=== PATIENT | female | born 1975 | race Caucasian/White ===

== ENCOUNTER → 2016-04-08 | Outpatient (CLI) | payer OTHER ==
--- NOTE | 2016-04-08 12:45 | US ---
EXAMINATION TYPE: US abdomen complete DATE OF EXAM: 04/08/2016 11:31 AM COMPARISON: CT on PACS CLINICAL HISTORY: R10.11 RUQ Pain. GB removed 1996; On multiple meds for HTN, Thyroid, and Psyche EXAM MEASUREMENTS: Liver Length: 16.6 cm Gallbladder Wall: surgically removed CBD: 0.3 cm Spleen: 9.4 cm Right Kidney: 11.3 x 6.3 x 4.7 cm Left Kidney: 11.6 x 4.6 x 5.5 cm TECHNOLOGIST IMPRESSION: Pancreas: hyperechoic; partially gassed out due to overlying bowel gas Liver: fatty as is hyperechoic to right renal cortex Gallbladder: surgically removed CBD: wnl Spleen: wnl Right Kidney: No hydronephrosis or masses seen Left Kidney: No hydronephrosis or masses seen Upper IVC: wnl Abd Aorta: wnl IMPRESSION: 1. No suspicious acute changes 2. Some limitation due to bowel gas 3. Mild fatty infiltration of the liver.
== END | disposition home or self-care (01) ==
LOC: RADUSWWP 10:51
PROVIDERS: ATTEND Family Medicine
DX: K76.0 Fatty (change of) liver, not elsewhere classified (principal)
CPT/HCPCS: 76700

== ENCOUNTER → 2016-04-20 | Outpatient (CLI) | payer OTHER ==
--- NOTE | 2016-04-20 15:09 | US ---
EXAMINATION TYPE: US thyroid st tissue head/neck DATE OF EXAM: 04/20/2016 1:27 PM COMPARISON: NONE CLINICAL HISTORY: Thyroid Mass E04.1. GLAND SIZE: Right Lobe: 4.0 x 1.3 x 1.2 cm Overall Parenchyma: grossly heterogenous Left Lobe: 4.5 x 1.2 x 0.8 cm Overall Parenchyma: grossly heterogeneous Isthmus Thickness: 0.3 cm NODULES RIGHT: # of nodules measured on right: 0 LEFT: # of nodules measured on left: 0 ISTHMUS: # of nodules measured in the isthmus: 0 TECHNOLOGIST IMPRESSION: Bilateral neck scanned, no abnormal lymphadenopathy noted. Thyroid echotexture is somewhat heterogeneous. IMPRESSION: Thyroid atrophy is suggested, there may be underlying thyroiditis
== END | disposition home or self-care (01) ==
LOC: RADUSWWP 13:12
PROVIDERS: ATTEND Otolaryngology Facial Plastic Surgery
DX: E07.89 Other specified disorders of thyroid (principal)
CPT/HCPCS: 76536

== ENCOUNTER 2016-06-27 18:41 | Inpatient (IN) | payer MEDICAID, OTHER ==
--- NOTE | 2016-06-27 19:34 | ED ---
Psych HPI - General Chief Complaint: Psychiatric Symptoms Stated Complaint: Mental health Source: patient Mode of arrival: ambulatory - History of Present Illness Initial Comments: 41-year-old female with past medical history of depression presenting for evaluation of feeling "not like myself" for the past week with suicidal thoughts. She states her symptoms started a week ago and have included a recent cyst in socialization, decreased hygiene, increased sleep, decreased interest in food, and suicidal thoughts with a tentative plan of throwing herself down the stairs, no homicidal ideations, and increased anxiety. She states years ago she had an inpatient psych admission but hasn't had any recently. She takes Celexa and lithium and denies starting any new medications or ilicit drug use. There have been no new life stressors. - Related Data Home Medications Medication Instructions Recorded Confirmed Citalopram Hydrobromide [CeleXA] 60 mg PO QAM 02/01/15 06/28/16 Topiramate [Topamax] 100 mg PO BID 02/01/15 06/28/16 Dextroamphetamine/Amphetamine 30 mg PO DAILY 07/24/15 06/28/16 [Adderall] Atorvastatin Calcium [Lipitor] 10 mg PO HS 06/27/16 06/28/16 Ibuprofen [Motrin] 800 mg PO AC-BID PRN 06/27/16 06/28/16 Levothyroxine Sodium [Synthroid] 137 mcg PO DAILY 06/27/16 06/28/16 Lisinopril-Hctz 20-12.5 mg 1 tab PO DAILY 06/27/16 06/28/16 [Zestoretic 20-12.5] [place] Carbonate 600 mg PO HS 06/27/16 06/28/16 Omeprazole 20 mg PO AC-BID 06/27/16 06/28/16 traMADol HCL [Ultram] 50 mg PO BID PRN 06/27/16 06/28/16 Previous Rx's Medication Instructions Recorded Lurasidone [Latuda] 40 mg PO DAILY #30 tab 07/01/16 Nicotine 14Mg/24Hr Patch [Habitrol] 1 patch TRANSDERM DAILY #30 patch 07/01/16 busPIRone HCl [Buspar] 5 mg PO TID #90 tab 07/01/16 Allergies Allergy/AdvReac Type Severity Reaction Status Date / Time paroxetine HCl [From Paxil] AdvReac Nausea & Verified 06/28/16 10:25 Vomiting venlafaxine [From Effexor] AdvReac Nausea & Verified 06/28/16 10:25 Vomiting Review of Systems ROS Statement: Those systems with pertinent positive or pertinent negative responses have been documented in the HPI. ROS Other: All systems not noted in ROS Statement are negative. Constitutional: Reports: night sweats. Denies: fever, chills, weakness, weight change Eyes: Denies: eye pain, eye discharge, vision change ENT: Denies: ear pain, throat pain Respiratory: Denies: cough, dyspnea Cardiovascular: Denies: chest pain, palpitations, dyspnea on exertion, orthopnea , edema Endocrine: Denies: fatigue, polydipsia, polyuria Gastrointestinal: Denies: abdominal pain, nausea, vomiting Genitourinary: Denies: urgency, dysuria Musculoskeletal: Denies: back pain, arthralgia, myalgia Skin: Denies: rash, lesions Neurological: Denies: headache, weakness Psychiatric: Denies: anxiety, depression Hematological/Lymphatic: Denies: easy bleeding, easy bruising Past Medical History Past Medical History: Fibromyalgia, Hypertension, Thyroid Disorder Additional Past Medical History / Comment(s): ADHD, abd pain,constipation with diarrhea,intestinal infection Dec/Jan 2015,rt kidney dehydrated Feb 2015 History of Any Multi-Drug Resistant Organisms: None Reported Past Surgical History: Appendectomy, Section, Cholecystectomy Past Anesthesia/Blood Transfusion Reactions: No Reported Reaction Past Psychological History: ADD/ADHD, Depression Smoking Status: Current every day smoker Past Alcohol Use History: Occasional Additional Past Alcohol Use History / Comment(s): started smoking ppd Past Drug Use History: None Reported - Past Family History Mother Family Medical History: Cancer, Pulmonary Embolus Additional Family Medical History / Comment(s): leukemia Father Family Medical History: Diabetes Mellitus, Hypertension Additional Family Medical History / Comment(s): heart valve problems Brother(s) Additional Family Medical History / Comment(s): She has one brother with no major medical problems. Patient does not have any sisters. General Exam Limitations: no limitations General appearance: alert, in no apparent distress Head exam: Present: atraumatic, normocephalic, normal inspection Eye exam: Present: normal appearance, PERRL, EOMI. Absent: scleral icterus, conjunctival injection, periorbital swelling ENT exam: Present: normal exam, mucous membranes moist Neck exam: Present: normal inspection. Absent: tenderness, meningismus, lymphadenopathy Respiratory exam: Present: normal lung sounds bilaterally. Absent: respiratory distress, wheezes, rales, rhonchi, stridor Cardiovascular Exam: Present: regular rate, normal rhythm, normal heart sounds. Absent: systolic murmur, diastolic murmur, rubs, gallop, clicks GI/Abdominal exam: Present: soft, normal bowel sounds. Absent: distended, tenderness, guarding, rebound, rigid Rectal exam: Present: deferred Extremities exam: Present: normal inspection, full ROM, normal capillary refill. Absent: tenderness, pedal edema, joint swelling, calf tenderness Back exam: Present: normal inspection Neurological exam: Present: alert, oriented X3, CN II-XII intact Psychiatric exam: Present: normal affect, normal mood Skin exam: Present: warm, dry, intact, normal color. Absent: rash Course Vital Signs 06/27/16 06/28/16 18:43 05:28 Temperature 99.4 F 98.5 F Pulse Rate 69 76 Respiratory 20 18 Rate Blood Pressure 110/60 98/63 O2 Sat by Pulse 98 98 Oximetry Medical Decision Making - Medical Decision Making 41-year-old female presented for psych evaluation. She states for the last week she has had increased depression and suicidal ideations with the plan to throw herself down the stairs. Last inpatient psych admission was years ago. She takes Celexa and lithium. On physical exam the patient does appear mildly withdrawn and somnolent although she does provide information willingly. Physical exam is benign. Given that the patient has admitted intentions of hurting herself although made no attempts will perform medical clearance and have EPS evaluate for appropriate course of treatment. Labs revealed a mild leukocytosis and urine was positive for amphetamines. Patient was cleared for psych evaluation. EPS confirm that the patient did require inpatient psych and stated that we were without beds at this facility. The patient will be maintained in this ER until placement can be obtained whether it this facility or at an outside hospital. - Lab Data Result diagrams: 06/27/16 20:12 06/27/16 20:12 Lab Results 06/27/16 06/27/16 06/27/16 Range/Units 19:15 19:15 20:12 WBC (3.8-10.6) k/uL RBC (3.80-5.40) m/uL Hgb (11.4-16.0) gm/dL Hct (34.0-46.0) % MCV (80.0-100.0) fL MCH (25.0-35.0) pg MCHC (31.0-37.0) g/dL RDW (11.5-15.5) % Plt Count (150-450) k/uL Neutrophils % % Lymphocytes % % Monocytes % % Eosinophils % % Basophils % % Neutrophils # (1.3-7.7) k/uL Lymphocytes # (1.0-4.8) k/uL Monocytes # (0-1.0) k/uL Eosinophils # (0-0.7) k/uL Basophils # (0-0.2) k/uL Sodium 138 (137-145) mmol/L Potassium 3.5 (3.5-5.1) mmol/L Chloride 109 H (98-107) mmol/L Carbon Dioxide 18 L (22-30) mmol/L Anion Gap 11 mmol/L BUN 9 (7-17) mg/dL Creatinine 1.00 (0.52-1.04) mg/dL Est GFR (MDRD) Af Amer >60 (>60 ml/min/1.73 sqM) Est GFR (MDRD) Non-Af >60 (>60 ml/min/1.73 sqM) Glucose 100 H (74-99) mg/dL Calcium 9.9 (8.4-10.2) mg/dL Urine HCG, Qual Not Detected (Not Detectd) Urine Opiates Screen Not Detected (NotDetected) Ur Oxycodone Screen Not Detected (NotDetected) Urine Methadone Screen Not Detected (NotDetected) Ur Propoxyphene Screen Not Detected (NotDetected) Ur Barbiturates Screen Not Detected (NotDetected) U Tricyclic Antidepress Not Detected (NotDetected) Ur Phencyclidine Scrn Not Detected (NotDetected) Ur Amphetamines Screen Detected H (NotDetected) U Methamphetamines Scrn Not Detected (NotDetected) U Benzodiazepines Scrn Not Detected (NotDetected) Urine Cocaine Screen Not Detected (NotDetected) U Marijuana (THC) Screen Not Detected (NotDetected) 05/07/17 Range/Units 20:12 WBC 14.5 H (3.8-10.6) k/uL RBC 4.25 (3.80-5.40) m/uL Hgb 12.5 (11.4-16.0) gm/dL Hct 38.7 (34.0-46.0) % MCV 91.2 (80.0-100.0) fL MCH 29.4 (25.0-35.0) pg MCHC 32.2 (31.0-37.0) g/dL RDW 13.6 (11.5-15.5) % Plt Count 383 (150-450) k/uL Neutrophils % 58 % Lymphocytes % 31 % Monocytes % 5 % Eosinophils % 3 % Basophils % 1 % Neutrophils # 8.4 H (1.3-7.7) k/uL Lymphocytes # 4.5 (1.0-4.8) k/uL Monocytes # 0.7 (0-1.0) k/uL Eosinophils # 0.4 (0-0.7) k/uL Basophils # 0.1 (0-0.2) k/uL Sodium (137-145) mmol/L Potassium (3.5-5.1) mmol/L Chloride (98-107) mmol/L Carbon Dioxide (22-30) mmol/L Anion Gap mmol/L BUN (7-17) mg/dL Creatinine (0.52-1.04) mg/dL Est GFR (MDRD) Af Amer (>60 ml/min/1.73 sqM) Est GFR (MDRD) Non-Af (>60 ml/min/1.73 sqM) Glucose (74-99) mg/dL Calcium (8.4-10.2) mg/dL Urine HCG, Qual (Not Detectd) Urine Opiates Screen (NotDetected) Ur Oxycodone Screen (NotDetected) Urine Methadone Screen (NotDetected) Ur Propoxyphene Screen (NotDetected) Ur Barbiturates Screen (NotDetected) U Tricyclic Antidepress (NotDetected) Ur Phencyclidine Scrn (NotDetected) Ur Amphetamines Screen (NotDetected) U Methamphetamines Scrn (NotDetected) U Benzodiazepines Scrn (NotDetected) Urine Cocaine Screen (NotDetected) U Marijuana (THC) Screen (NotDetected) 06/27/16 19:58 Normal sinus rhythm with prolonged QT of 388/485. Ventricular rate 94, COBY 132 , QRS 76. Disposition Clinical Impression: Suicidal thoughts, Depression Disposition: HOME SELF-CARE Time of Disposition: 19:23
[2016-06-27 20:25] LABS: Basophils # (A) 0.1 k/uL (0-0.2); Basophils % (A) 1 %; CH 29.9; Eosinophils # (A) 0.4 k/uL (0-0.7); Eosinophils % (A) 3 %; HCT 38.7 % (34.0-46.0); HDW 2.61; HGB 12.5 gm/dL (11.4-16.0); Luc # (Auto) 0.39; Luc % (Auto) 3; Lymphocytes # (A) 4.5 k/uL (1.0-4.8); Lymphocytes % (A) 31 %; MCH 29.4 pg (25.0-35.0); MCHC 32.2 g/dL (31.0-37.0); MCV 91.2 fL (80.0-100.0); Mean Platelet Volume 6.5; Monocytes # (A) 0.7 k/uL (0-1.0); Monocytes % (A) 5 %; Neutrophils # (A) 8.4 k/uL (1.3-7.7); Neutrophils % (A) 58 %; RBC 4.25 m/uL (3.80-5.40); RDW 13.6 % (11.5-15.5); WBC 14.5 k/uL (3.8-10.6); WBC (Perox) 14.79
[2016-06-27 20:37] LABS: Anion Gap 11 mmol/L; Blood Urea Nitrogen 9 mg/dL (7-17); Calcium 9.9 mg/dL (8.4-10.2); Carbon Dioxide 18 mmol/L (22-30); Chloride 109 mmol/L (98-107); Glucose 100 mg/dL (74-99); Non-African American GFR(MDRD) >60 (>60 ml/min/1.73 sqM); Potassium 3.5 mmol/L (3.5-5.1); Sodium 138 mmol/L (137-145)
[2016-06-27] MEDS ORDERED: LORazepam 2 MG/ML SYRINGE IV STA (21:28)
[2016-06-27] MEDS ORDERED: LORazepam 2 MG/ML SYRINGE IM PRN (23:39)
[2016-06-27] MEDS ORDERED: TOPIRAMATE 100 MG TAB PO SCH (23:45)
[2016-06-27] MEDS ORDERED: PANTOPRAZOLE 40 MG TABLET PO SCH (23:45)
[2016-06-27] MEDS ORDERED: LISINOPRIL-HCTZ 20-12.5 MG 1 EACH TAB PO STA (23:55)
[2016-06-27] MEDS ORDERED: ATORVASTATIN 10 MG TAB PO STA (23:57)
[2016-06-28] MEDS ORDERED: LITHIUM CARBONATE 300 MG CAP PO STA
[2016-06-28] MEDS ORDERED: LEVOTHYROXINE 137 MCG TAB PO SCH (06:30)
[2016-06-28] MEDS ORDERED: LORazepam 1 MG TAB PO PRN (06:49)
[2016-06-28] MEDS ORDERED: ACETAMINOPHEN TAB 325 MG TAB PO PRN (06:49)
[2016-06-28] MEDS ORDERED: ZIPRASIDONE 20 MG VIAL IM PRN (06:49)
[2016-06-28] MEDS ORDERED: MAGNESIUM HYDROXIDE 2,400 MG/10 ML CUP PO PRN (06:49)
[2016-06-28] MEDS ORDERED: MAG HYDROX/AL HYDROX/SIMETH 30 ML CUP PO PRN (06:49)
[2016-06-28] MEDS ORDERED: traMADol 50 MG TAB PO PRN (06:56)
[2016-06-28] MEDS ORDERED: IBUPROFEN 800 MG TAB PO PRN (06:56)
[2016-06-28] MEDS ORDERED: LISINOPRIL-HCTZ 20-12.5 MG 1 EACH TAB PO ONE (09:00)
[2016-06-28] MEDS: LISINOPRIL-HCTZ 20-12.5 MG 1 EACH TAB PO SCH (09:26)
[2016-06-28] MEDS: NICOTINE 14MG/24HR PATCH TRANSDERM SCH (09:26)
[2016-06-28] MEDS: PANTOPRAZOLE 40 MG TABLET PO SCH ×2 (09:26→16:58)
[2016-06-28] MEDS: LEVOTHYROXINE 137 MCG TAB PO SCH (09:27)
[2016-06-28] MEDS: CITALOPRAM HYDROBROMIDE 20 MG TAB PO SCH (09:27)
[2016-06-28] MEDS: TOPIRAMATE 100 MG TAB PO SCH ×2 (09:27→21:41)
[2016-06-28 09:51] LABS: Lithium 0.8 mmol/L
[2016-06-28 10:20] VITALS: BMI 37.8
--- NOTE | 2016-06-28 14:58 | P.CONS ---
History of Present Illness - Reason for Consult Consult date: 06/28/16 Medical management - History of Present Illness This is a 41-year-old female. She does not have a primary care physician and follows with [facility] She also follows with Jeri Strange with [facility] and she obtains Adderall from a Dr. Christie. She has a past medical history for fibromyalgia, chronic leukocytosis, hypertension, hypothyroidism, ADHD, chronic diarrhea, tobacco use and dependence. Patient states that she has been feeling very depressed for one week and it just continued to worsen. She was having thoughts that she was going to hurt herself. She has not been sleeping well. She had 1 previous mental health unit visit many years ago. Someone brought her into [facility] emergency center for evaluation. White count is 14.5 and patient states that she has had chronically elevated white counts and does not know why. He is H is 1.310, cortisol level XIV. Urine drug screen detected and fat amines. [place] level is 0.8. HCG was not detected. Patient has been admitted to the mental health unit. She does complain of her abdomen being sore which is been chronic with chronic diarrhea. She denies any blood in her stools. Review of Systems All systems: negative Constitutional: Denies chills, Denies fever Eyes: denies blurred vision, denies pain Ears, nose, mouth and throat: Denies headache, Denies sore throat Cardiovascular: Denies chest pain, Denies shortness of breath Respiratory: Denies cough Gastrointestinal: Reports abdominal pain, Reports diarrhea, Denies melena, Denies nausea, Denies vomiting Genitourinary: Denies dysuria, Denies hematuria Musculoskeletal: Denies myalgias Integumentary: Denies pruritus, Denies rash Neurological: Denies numbness, Denies weakness Psychiatric: Reports depression, Reports hopelessness, Reports suicidal ideation , Denies anxiety Endocrine: Denies fatigue, Denies weight change Past Medical History Past Medical History: Fibromyalgia, Hypertension, Thyroid Disorder Additional Past Medical History / Comment(s): ADHD, abd pain,constipation with diarrhea,intestinal infection Dec/Jan 2015,rt kidney dehydrated Feb 2015 History of Any Multi-Drug Resistant Organisms: None Reported Past Surgical History: Appendectomy, Section, Cholecystectomy Past Anesthesia/Blood Transfusion Reactions: No Reported Reaction Past Psychological History: ADD/ADHD, Depression Smoking Status: Current every day smoker Past Alcohol Use History: None Reported Additional Past Alcohol Use History / Comment(s): started smoking 1992-02 ppd. She denies any medical marijuana, marijuana, street drug use. She is single. She has 4 children with no major medical problems. Patient is not employed. Past Drug Use History: None Reported - Past Family History Mother Family Medical History: Cancer, Pulmonary Embolus Additional Family Medical History / Comment(s): Mother at age 49 due to a pulmonary embolus. leukemia Father Family Medical History: Diabetes Mellitus, Hypertension Additional Family Medical History / Comment(s): Father is alive at age 71 with heart valve problems Brother(s) Additional Family Medical History / Comment(s): She has one brother with no major medical problems. Patient does not have any sisters. Medications and Allergies Home Medications Medication Instructions Recorded Confirmed Type Citalopram Hydrobromide [CeleXA] 60 mg PO QAM 02/01/15 06/28/16 History Topiramate [Topamax] 100 mg PO BID 02/01/15 06/28/16 History Dextroamphetamine/Amphetamine 30 mg PO DAILY 07/24/15 06/28/16 History [Adderall] Atorvastatin Calcium [Lipitor] 10 mg PO HS 06/27/16 06/28/16 History Ibuprofen [Motrin] 800 mg PO AC-BID PRN 06/27/16 06/28/16 History Levothyroxine Sodium [Synthroid] 137 mcg PO DAILY 06/27/16 06/28/16 History Lisinopril-Hctz 20-12.5 mg 1 tab PO DAILY 06/27/16 06/28/16 History [Zestoretic 20-12.5] [place] Carbonate 600 mg PO HS 06/27/16 06/28/16 History Omeprazole 20 mg PO AC-BID 06/27/16 06/28/16 History traMADol HCL [Ultram] 50 mg PO BID PRN 06/27/16 06/28/16 History Allergies Allergy/AdvReac Type Severity Reaction Status Date / Time paroxetine HCl [From Paxil] AdvReac Nausea & Verified 06/28/16 10:25 Vomiting venlafaxine [From Effexor] AdvReac Nausea & Verified 06/28/16 10:25 Vomiting Physical Exam Vitals: Vital Signs Temp Pulse Resp BP 05/08/17 09:30 99 18 116/71 06/28/16 07:13 98.4 F 90 16 111/58 Intake and Output 06/27/16 06/28/16 06/28/16 22:59 06:59 14:59 Other: Weight 96.79 kg Patient Weight 06/29/16 06:59 Weight 96.79 kg Gen: This is a 41-year-old female. She is cooperative and appears to be in no acute distress. HEENT: Head is atraumatic, normocephalic. Pupils equal, round. Sclerae is anicteric. NECK: Supple. No JVD. No lymphadenopathy. No thyromegaly. LUNGS: Clear to auscultation. No wheezes or rhonchi. No intercostal retractions. HEART: Regular rate and rhythm. No murmur. ABDOMEN: Soft. Bowel sounds are present. No masses. No tenderness. EXTREMITIES: No pedal edema. No calf tenderness. NEUROLOGICAL: Patient is awake, alert and oriented x3. Cranial nerves 2 through 12 are grossly intact. Results CBC & Chem 7: 06/27/16 20:12 06/27/16 20:12 Assessment and Plan Plan: 1. Depression with suicidal ideation. Patient admitted to the mental health unit. Continue current plan of care. 2. Insomnia due to depression. Continue as in #1. 3. Leukocytosis, chronic with normal cortisol level. 4. Tobacco use and dependence. Nicotine patch. 5. Hypertension. Continue Zestoretic. 6. Hypothyroidism. Continue Synthroid. 7. Hyperlipidemia. Continue Lipitor. 8. ADHD. Adderall on hold. 9. Gastroesophageal reflux disease. Continue omeprazole or equivalent. 10. Fibromyalgia, stable continue Tylenol or Motrin as needed. Ultram is available. Impression and plan of care have been directed as dictated by the signing physician. Rachel Smiley nurse practitioner acting as scribe for signing physician.
--- NOTE | 2016-06-28 17:09 | P.HP ---
Psychiatric H&P - . H&P Date: 06/28/16 History & Physical: IDENTIFYING DATA: A 41-year-old female. HPI: Patient reports not feeling well for a week. Was tired, depressed, isolating. Didn't want to do anything, see anybody or anyone see her, be at home by herself, for the past week. This has happended before but never this severe. Began to think of suicide, thoughts of throwing herself down the stairs, says she did not because of her children. PAST PSYCHIATRIC HISTORY: reports she has been treated for a long time, cannot give time frame. Has brief periods of feeling good. Has one attempt of OD on xanax. 3 hospitalizations PMH:hypothyroidism, HTN, high cholesteral, obesity ALLERGIES: Paxil, Effexor MEDICATIONS: per record CHEMICAL DEPENDENCY HISTORY: denies FAMILY PSYCHIATRIC HISTORY: denies FAMILY CHEMICAL DEPENDENCY HISTORY: brother with hx etoh use SOCIAL HISTORY: Lives by herself, her children are with others, friends. 2 youngest live with their father. She does not work, lives back child support payments. MENTAL STATUS EXAM: Patient lying in bed, difficult to coax out of bed but eventually came to office. Patient alert and oriented 3, poor eye contact, fair groomed in hospital attire. Speech low volume, slowed rate and decreased production. Coherent, logical and goal directed thought process. No HAKAN, no FOI. [No TB/TW/ TI] Denied auditory and visual hallucinations. Denied paranoid ideation, delusions or IOR. Memory [grossly intact] Cognition[average] Mood dysphoric, affect [constricted], congruent with mood. Denies suicidal ideation, denies homicidal ideation. Insight [none]; Judgment [grossly intact] STRENGTHS/WEAKNESSES: kind/lack of support INTELLECTUAL FUNCTIONING: average IMPRESSIONS: 41-year-old female with history of chronic recurrent depression, reporting anxiety fatigue and anhedonia lack of motivation. Vague suicidal ideation with plan to throw herself down her staircase but did not do it because she didn't want her children to suffer. Unclear why she is no longer at the jail parent. Possible characterologic issues, will need further information. Asking for medication for anxiety was the only spontaneous speech. No evidence of psychosis. No clear history of rebecca or hypomania. No suicidal ideation Bipolar II Borderline PD hx of opioid use disorder PLAN: Declined giving her a benzodiazepine which she had requested, and instead will give a try of BuSpar 5 mg 3 times a day. Will reduce the PRN dose of Ativan, and eventually D/C. Asked her to participate in the groups on the unit and other activities. She also agreed to let nursing staff know if she became suicidal. Continue inpatient psychiatric hospitalization Allergies Allergy/AdvReac Type Severity Reaction Status Date / Time paroxetine HCl From Paxil AdvReac Nausea & Verified 06/28/16 10:25 Vomiting venlafaxine From Effexor AdvReac Nausea & Verified 06/28/16 10:25 Vomiting Vital Signs Temp 98.4 F 06/28/16 07:13 Pulse 99 06/28/16 09:30 Resp 18 06/28/16 09:30 BP 116/71 06/28/16 09:30 Pulse Ox 98 06/28/16 05:28 Intake & Output 06/27/16 06/28/16 06/28/16 18:59 06:59 18:59 Weight 96.79 kg Laboratory Last Values WBC 14.5 k/uL (3.8-10.6) H 06/27/16 20:12 RBC 4.25 m/uL (3.80-5.40) 06/27/16 20:12 Hgb 12.5 gm/dL (11.4-16.0) 06/27/16 20:12 Hct 38.7 % (34.0-46.0) 06/27/16 20:12 MCV 91.2 fL (80.0-100.0) 06/27/16 20:12 MCH 29.4 pg (25.0-35.0) 06/27/16 20:12 MCHC 32.2 g/dL (31.0-37.0) 06/27/16 20:12 RDW 13.6 % (11.5-15.5) 06/27/16 20:12 Plt Count 383 k/uL (150-450) 06/27/16 20:12 Neutrophils % 58 % 06/27/16 20:12 Lymphocytes % 31 % 06/27/16 20:12 Monocytes % 5 % 06/27/16 20:12 Eosinophils % 3 % 06/27/16 20:12 Basophils % 1 % 06/27/16 20:12 Neutrophils # 8.4 k/uL (1.3-7.7) H 06/27/16 20:12 Lymphocytes # 4.5 k/uL (1.0-4.8) 06/27/16 20:12 Monocytes # 0.7 k/uL (0-1.0) 06/27/16 20:12 Eosinophils # 0.4 k/uL (0-0.7) 06/27/16 20:12 Basophils # 0.1 k/uL (0-0.2) 06/27/16 20:12 Sodium 138 mmol/L (137-145) 06/27/16 20:12 Potassium 3.5 mmol/L (3.5-5.1) 06/27/16 20:12 Chloride 109 mmol/L (98-107) H 06/27/16 20:12 Carbon Dioxide 18 mmol/L (22-30) L 06/27/16 20:12 Anion Gap 11 mmol/L 06/27/16 20:12 BUN 9 mg/dL (7-17) 06/27/16 20:12 Creatinine 1.00 mg/dL (0.52-1.04) 06/27/16 20:12 Est GFR (MDRD) Af Amer >60 (>60 ml/min/1.73 sqM) 06/27/16 20:12 Est GFR (MDRD) Non-Af >60 (>60 ml/min/1.73 sqM) 06/27/16 20:12 Glucose 100 mg/dL (74-99) H 06/27/16 20:12 Calcium 9.9 mg/dL (8.4-10.2) 06/27/16 20:12 TSH 1.310 mIU/L (0.465-4.680) 06/28/16 08:32 Cortisol 14 ug/dL 06/28/16 08:32 Urine HCG, Qual Not Detected (Not Detectd) 06/27/16 19:15 Urine Opiates Screen Not Detected (NotDetected) 06/27/16 19:15 Ur Oxycodone Screen Not Detected (NotDetected) 06/27/16 19:15 Urine Methadone Screen Not Detected (NotDetected) 06/27/16 19:15 Ur Propoxyphene Screen Not Detected (NotDetected) 06/27/16 19:15 Ur Barbiturates Screen Not Detected (NotDetected) 06/27/16 19:15 U Tricyclic Antidepress Not Detected (NotDetected) 06/27/16 19:15 Ur Phencyclidine Scrn Not Detected (NotDetected) 06/27/16 19:15 Ur Amphetamines Screen Detected (NotDetected) H 06/27/16 19:15 U Methamphetamines Scrn Not Detected (NotDetected) 06/27/16 19:15 U Benzodiazepines Scrn Not Detected (NotDetected) 06/27/16 19:15 [place] 0.8 mmol/L 06/28/16 08:32 Urine Cocaine Screen Not Detected (NotDetected) 06/27/16 19:15 U Marijuana (THC) Screen Not Detected (NotDetected) 06/27/16 19:15 06/28/16 16:30 06/28/16 16:52
[2016-06-28] MEDS: LITHIUM CARBONATE 300 MG CAP PO SCH (21:41)
[2016-06-28] MEDS: ATORVASTATIN 10 MG TAB PO SCH (21:41)
[2016-06-28] MEDS: LORazepam 1 MG TAB PO PRN (21:42)
[2016-06-28] MEDS: busPIRone HCl 5 MG TAB PO SCH (21:42)
[2016-06-29] MEDS: LEVOTHYROXINE 137 MCG TAB PO SCH (05:48)
--- NOTE | 2016-06-29 10:28 | P.PN ---
Progress Note - Text INTERVERAL HISTORY: She was seen in her room, lying in bed. States she is very tired, but slept last night. She was admitted for suicidal ideation, with a decrease in mood over the past week. Today she continues to report feeling depressed, not herself, but denies suicidal ideation. MENTAL STATUS EXAM:Patient alert and oriented 3, fair eye contact, fair groomed in hospital attire. Speech low volume, rate and production. Coherent, logical and goal directed thought process. No HAKAN, no FOI. No TB/TW/ TI Denied auditory and visual hallucinations. Denied paranoid ideation, delusions or IOR. Memory grossly intact Cognition average Mood dysphoric, affect and constricted, congruent with mood. Denies suicidal ideation, denies homicidal ideation. Insight Limited; Judgement grossly intact for treatment purposes PLAN: Reviewed her most recent progress notes from outpatient, and list of medicines. She has been tried on a multitude of different medications with marginal response. No side effects due to initiation of buspar. Encouraged her to get out of bed, participate in unit activities/groups.
[2016-06-29] MEDS: NICOTINE 14MG/24HR PATCH TRANSDERM SCH (10:31)
[2016-06-29] MEDS: busPIRone HCl 5 MG TAB PO SCH ×3 (10:31→21:18)
[2016-06-29] MEDS: PANTOPRAZOLE 40 MG TABLET PO SCH ×2 (10:31→16:58)
[2016-06-29] MEDS: CITALOPRAM HYDROBROMIDE 20 MG TAB PO SCH (10:32)
[2016-06-29] MEDS: TOPIRAMATE 100 MG TAB PO SCH ×2 (10:32→21:20)
[2016-06-29] MEDS: LISINOPRIL-HCTZ 20-12.5 MG 1 EACH TAB PO SCH (10:32)
[2016-06-29] MEDS: LORazepam 1 MG TAB PO PRN (13:23)
[2016-06-29] MEDS: ATORVASTATIN 10 MG TAB PO SCH (21:18)
[2016-06-29] MEDS: LITHIUM CARBONATE 300 MG CAP PO SCH (21:18)
[2016-06-30] MEDS: LORazepam 1 MG TAB PO PRN (00:26)
[2016-06-30] MEDS: LEVOTHYROXINE 137 MCG TAB PO SCH (06:20)
[2016-06-30] MEDS: PANTOPRAZOLE 40 MG TABLET PO SCH ×2 (08:30→18:19)
[2016-06-30] MEDS: LISINOPRIL-HCTZ 20-12.5 MG 1 EACH TAB PO SCH (09:02)
[2016-06-30] MEDS: busPIRone HCl 5 MG TAB PO SCH ×3 (09:03→20:59)
[2016-06-30] MEDS: CITALOPRAM HYDROBROMIDE 20 MG TAB PO SCH (09:03)
[2016-06-30] MEDS: NICOTINE 14MG/24HR PATCH TRANSDERM SCH (09:04)
[2016-06-30] MEDS: TOPIRAMATE 100 MG TAB PO SCH ×2 (09:04→20:59)
--- NOTE | 2016-06-30 12:41 | P.PN ---
Progress Note - Text INTERVERAL HISTORY:Patient admitted with suicidal ideation of throwing herself down staircase but instead came here. She spent the last 2 days sleeping, isloating. This morning [facility] Rep spoke with her and she is requesting discharge. Reviewed her case with her CABIN [employer]W. Patient had been on Latuda 120 mg and there have been no improvement in mood. In March lithium was slowly titrated up to 600 mg daily at bedtime, and patient was noted to feel less depressed and reported no suicidal ideation. At the beginning of May Mrs. Strange, began a tapering of Latuda with her last dose June 14. Patient agrees with this that her last dose was around June 14, and that she thinks this may also be part of the cause of her change in her mood and suicidal ideation. We discussed some other issues specifically the use of Adderall for ADHD, patient was not diagnosed with ADHD as a child or even as a teenager which is a requirement for DSM-V. 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 She states that she is willing to consider other choices for the stimulant. We discussed the fact that although it may not be the sole cause of anxiety it certainly is going to contribution. Patient denies suicidal ideation, says she would like to go home tomorrow because on Tuesday her children are coming, says that she has them every other weekend and its mother stated this weekend. MENTAL STATUS EXAM:Patient alert and oriented 3, good eye contact, fair groomed in hospital attire. Speech normal volume, rate and production. Coherent, logical and goal directed thought process. No HAKAN, no FOI. [No TB/TW/ TI] Denied auditory and visual hallucinations. Denied paranoid ideation, delusions or IOR. Memory [grossly intact] Cognition average Mood neutral, affect full range decreased intensity, congruent with mood. Denies suicidal ideation, denies homicidal ideation. Insight [Limited]; Judgment grossly intact PLAN: Will start Latuda 40m today, will continue buspar 5mg tid. Will plan on discharge tomorrow, with family meeting prior.
[2016-06-30] MEDS: LURASIDONE 40 MG TAB PO SCH (13:42)
[2016-06-30] MEDS: LITHIUM CARBONATE 300 MG CAP PO SCH (20:59)
[2016-06-30] MEDS: ATORVASTATIN 10 MG TAB PO SCH (20:59)
[2016-07-01 06:54] VITALS: BP 109/63; PULSE 91; RESP 16; TEMP 98.4
[2016-07-01] MEDS: LEVOTHYROXINE 137 MCG TAB PO SCH (07:20)
[2016-07-01] MEDS: PANTOPRAZOLE 40 MG TABLET PO SCH (09:10)
[2016-07-01] MEDS: busPIRone HCl 5 MG TAB PO SCH (09:11)
[2016-07-01] MEDS: LURASIDONE 40 MG TAB PO SCH (09:11)
[2016-07-01] MEDS: CITALOPRAM HYDROBROMIDE 20 MG TAB PO SCH (09:11)
[2016-07-01] MEDS: TOPIRAMATE 100 MG TAB PO SCH (09:11)
[2016-07-01] MEDS: LISINOPRIL-HCTZ 20-12.5 MG 1 EACH TAB PO SCH (09:11)
[2016-07-01] MEDS: NICOTINE 14MG/24HR PATCH TRANSDERM SCH (09:11)
--- NOTE | 2016-07-01 09:26 | P.DS ---
Providers Date of admission: 06/28/16 05:29 Expected date of discharge: 07/01/16 Attending physician: Francine Carias MD Consults: 06/28/16 06:49 Consult Physician Routine Consulting Provider: Elkin Barth Reason/Comments: H & P ad medical follow up Do you want consulting provider notified?: Yes Primary care physician: Stated None - Discharge Diagnosis(es) (1) Depression Current Visit: Yes Status: Chronic Priority: Medium (2) Suicidal thoughts Current Visit: Yes Status: Chronic Priority: Medium Hospital Course: Patient admitted with suicidal ideation of throwing herself down staircase but instead came here. She spent the first 2 days sleeping, isloating. Yesterday spoke to her [facility] [employer] PROFESSOR. Patient had been on Latuda 120 mg and there have been no improvement in mood. In March lithium was slowly titrated up to 600 mg daily at bedtime, and patient was noted to feel less depressed and reported no suicidal ideation. At the beginning of May Mrs. Strange, began a tapering of Latuda with her last dose June 14. Patient agrees with this that her last dose was around June 14, and that she thinks this may also be part of the cause of her change in her mood and suicidal ideation. We discussed some other issues specifically the use of Adderall for ADHD, patient was not diagnosed with ADHD as a child or even as a teenager which is a requirement for DSM-V. Was assessed by but can't remember his name. She states that she is willing to consider other choices for the stimulant. We discussed the fact that although it may not be the sole cause of anxiety it certainly is going to contribution. Patient denies suicidal ideation, says she would like to go home because on Tuesday her children are coming, says that she has them every other weekend and its mother stated this weekend. Started buspar 5mg tid, she tolerates. Restarted latuda 40mg MENTAL STATUS EXAM:Patient alert and oriented 3, good eye contact, fair groomed in street clothes. Speech normal volume, rate and production. Coherent, logical and goal directed thought process. No HAKAN, no FOI. [No TB/TW/ TI] Denied auditory and visual hallucinations. Denied paranoid ideation, delusions or IOR. Memory [grossly intact] Cognition average Mood neutral, affect full range decreased intensity, congruent with mood. Denies suicidal ideation, denies homicidal ideation. Insight [Limited]; Judgment grossly intact PLAN: Discharge today. Will have [facility] follow up. Will start Latuda 40m today, will Will plan on discharge tomorrow, with family meeting prior. Plan - Discharge Summary New Discharge Prescriptions: Lurasidone [Latuda] 40 mg PO DAILY #30 tab Nicotine 14Mg/24Hr Patch [Habitrol] 1 patch TRANSDERM DAILY #30 patch busPIRone HCl [Buspar] 5 mg PO TID #90 tab Discharge Medication List Citalopram Hydrobromide [CeleXA] 60 mg PO QAM 02/01/15 [History] Topiramate [Topamax] 100 mg PO BID 02/01/15 [History] Dextroamphetamine/Amphetamine [Adderall] 30 mg PO DAILY 07/24/15 [History] Atorvastatin Calcium [Lipitor] 10 mg PO HS 06/27/16 [History] Ibuprofen [Motrin] 800 mg PO AC-BID PRN 06/27/16 [History] Levothyroxine Sodium [Synthroid] 137 mcg PO DAILY 06/27/16 [History] Lisinopril-Hctz 20-12.5 mg [Zestoretic 20-12.5] 1 tab PO DAILY 06/27/16 [History ] [place] Carbonate 600 mg PO HS 06/27/16 [History] Omeprazole 20 mg PO AC-BID 06/27/16 [History] traMADol HCL [Ultram] 50 mg PO BID PRN 06/27/16 [History] Lurasidone [Latuda] 40 mg PO DAILY #30 tab 07/01/16 [Rx] Nicotine 14Mg/24Hr Patch [Habitrol] 1 patch TRANSDERM DAILY #30 patch 07/01/16 [ Rx] busPIRone HCl [Buspar] 5 mg PO TID #90 tab 07/01/16 [Rx] Follow up Appointment(s)/Referral(s): None,Stated [Primary Care Provider] - 1-2 days Patient Instructions/Handouts: Depression (DC), Suicide Prevention for Adults ( DC) Activity/Diet/Wound Care/Special Instructions: Activity and diet as tolerated. Avoid the use of street drugs and alcohol. Take all medications as prescribed. When you are in need of refills on your medication please contact your medical provider and/or outpatient psychiatrist to have this done. Please go to scheduled outpatient appointment for aftercare services. If symptoms return or become worse call the crisis line at [phone] and/or go to the nearest emergency room for an evaluation. Discharge Disposition: HOME SELF-CARE
== END 2016-07-01 10:06 | disposition home or self-care (01) | DRG 885 ==
LOC: EC 18:41 → 3MHU 06-28 05:29
PROVIDERS: ADMIT Psychiatry & Neurology Addiction Medicine; ATTEND Psychiatry & Neurology Addiction Medicine
DX: F33.9 Major depressive disorder, recurrent, unspecified (principal); R45.851 Suicidal ideations; I10 Essential (primary) hypertension; E03.9 Hypothyroidism, unspecified; F17.200 Nicotine dependence, unspecified, uncomplicated; F41.9 Anxiety disorder, unspecified; F90.9 Attention-deficit hyperactivity disorder, unspecified type; K52.9 Noninfective gastroenteritis and colitis, unspecified; M79.7 Fibromyalgia; E66.9 Obesity, unspecified; D72.829 Elevated white blood cell count, unspecified; G89.4 Chronic pain syndrome; R10.9 Unspecified abdominal pain; G47.00 Insomnia, unspecified; K21.9 Gastro-esophageal reflux disease without esophagitis; Z79.899 Other long term (current) drug therapy; Z88.8 Allergy status to other drugs, medicaments and biological substances; Z68.37 Body mass index [BMI] 37.0-37.9, adult; Z82.49 Family history of ischemic heart disease and other diseases of the circulatory system
CPT/HCPCS: 36415; 80048; 80178; 80306; 81025; 82075; 82533; 84443; 85025; 93005; 96372; 96374; 99285

== ENCOUNTER 2017-11-28 14:54 | Inpatient (IN) | payer MEDICAID, OTHER ==
--- NOTE | 2017-11-28 15:10 | ED ---
General Adult HPI - General Chief complaint: Psychiatric Symptoms Stated complaint: mental health Time Seen by Provider: 11/28/17 15:02 Source: patient, RN notes reviewed Mode of arrival: ambulatory Limitations: no limitations - History of Present Illness Initial comments: Patient is a pleasant 42-year-old female presenting to the emergency department with depression and stress. Symptoms been occurring over the past couple of months. Patient has lost interest in living. Patient does not have a plan to harm herself. Patient has been depressed. Patient is not eating well. Patient has nausea. Patient has occasional diarrhea. No homicidal thoughts. No hallucinations. No alcohol use. Occasional marijuana use. - Related Data Home Medications Medication Instructions Recorded Confirmed Citalopram Hydrobromide [CeleXA] 60 mg PO QAM 02/01/15 11/29/17 Topiramate [Topamax] 100 mg PO BID 02/01/15 11/29/17 Atorvastatin Calcium [Lipitor] 10 mg PO HS 06/27/16 11/29/17 Levothyroxine Sodium [Synthroid] 137 mcg PO DAILY 06/27/16 11/29/17 Omeprazole 20 mg PO AC-BID 06/27/16 11/29/17 ARIPiprazole [Abilify] 10 mg PO DAILY 11/28/17 11/29/17 Cholecalciferol [Vitamin D3] 5,000 unit PO DAILY 11/28/17 11/29/17 Dicyclomine [Bentyl] 10 mg PO QID 11/28/17 11/29/17 L.acidoph,Paracasei, B.lactis 1 cap PO BID 11/28/17 11/29/17 [Probiotic] busPIRone HCL 30 mg PO HS 11/28/17 11/29/17 cloNIDine HCL [Catapres] 0.2 mg OP HS 11/28/17 11/29/17 guaiFENesin [Mucinex] 600 mg PO Q12H PRN 11/28/17 11/29/17 Allergies Allergy/AdvReac Type Severity Reaction Status Date / Time lurasidone [From Latuda] AdvReac Swelling Verified 11/29/17 00:16 paroxetine HCl [From Paxil] AdvReac Nausea & Verified 11/29/17 00:16 Vomiting venlafaxine [From Effexor] AdvReac Nausea & Verified 10/09/18 00:16 Vomiting Review of Systems ROS Statement: Those systems with pertinent positive or pertinent negative responses have been documented in the HPI. ROS Other: All systems not noted in ROS Statement are negative. Constitutional: Denies: fever Eyes: Denies: eye pain ENT: Denies: ear pain Respiratory: Denies: cough Cardiovascular: Denies: chest pain Endocrine: Reports: fatigue Gastrointestinal: Reports: nausea, diarrhea Genitourinary: Denies: dysuria Musculoskeletal: Denies: back pain Skin: Denies: rash Neurological: Denies: weakness Past Medical History Past Medical History: Fibromyalgia, Hypertension, Thyroid Disorder Additional Past Medical History / Comment(s): ADHD, abd pain,constipation with diarrhea,intestinal infection Dec/Jan 2015,rt kidney dehydrated Feb 2015, hypokalemia, leukopenia History of Any Multi-Drug Resistant Organisms: None Reported Past Surgical History: Appendectomy, Section, Cholecystectomy Past Anesthesia/Blood Transfusion Reactions: No Reported Reaction Past Psychological History: ADD/ADHD, Depression Smoking Status: Current every day smoker Past Alcohol Use History: Occasional Past Drug Use History: Marijuana - Past Family History Mother Family Medical History: Cancer, Pulmonary Embolus Additional Family Medical History / Comment(s): leukemia Father Family Medical History: Diabetes Mellitus, Hypertension Additional Family Medical History / Comment(s): heart valve problems Brother(s) Additional Family Medical History / Comment(s): She has one brother with no major medical problems. Patient does not have any sisters. General Exam Limitations: no limitations General appearance: alert, in no apparent distress Head exam: Present: atraumatic Eye exam: Present: normal appearance, PERRL ENT exam: Present: normal oropharynx Neck exam: Present: normal inspection Respiratory exam: Present: normal lung sounds bilaterally Cardiovascular Exam: Present: regular rate, normal rhythm GI/Abdominal exam: Present: soft. Absent: distended, tenderness, pulsatile mass Extremities exam: Present: normal inspection Neurological exam: Present: alert Psychiatric exam: Present: depressed Skin exam: Present: normal color Course Vital Signs 11/28/17 11/28/17 14:56 20:44 Temperature 98.4 F 98.8 F Pulse Rate 93 83 Respiratory 18 16 Rate Blood Pressure 123/89 102/58 O2 Sat by Pulse 100 100 Oximetry Medical Decision Making - Lab Data Result diagrams: 11/29/17 10:06 11/29/17 10:06 Lab Results 11/28/17 Range/Units 15:11 Urine Opiates Screen Not Detected (NotDetected) Ur Oxycodone Screen Not Detected (NotDetected) Urine Methadone Screen Not Detected (NotDetected) Ur Propoxyphene Screen Not Detected (NotDetected) Ur Barbiturates Screen Not Detected (NotDetected) U Tricyclic Antidepress Not Detected (NotDetected) Ur Phencyclidine Scrn Not Detected (NotDetected) Ur Amphetamines Screen Detected H (NotDetected) U Methamphetamines Scrn Detected H (NotDetected) U Benzodiazepines Scrn Not Detected (NotDetected) Urine Cocaine Screen Not Detected (NotDetected) U Marijuana (THC) Screen Detected H (NotDetected) Disposition Clinical Impression: Depression Disposition: TRANSFER TO PSYCH HOSP/UNIT
[2017-11-28 15:44] LABS: Cocaine Screen,Urine Not Detected (NotDetected); Opiate Screen,Urine Not Detected (NotDetected); Phencyclidine Screen,Urine Not Detected (NotDetected); Urn Cannabinoid Scrn Detected (NotDetected)
[2017-11-28 15:45] LABS: Amphetamine Screen,Urine Detected (NotDetected); Barbiturate Screen,Urine Not Detected (NotDetected); Benzodiazepines Screen,Urine Not Detected (NotDetected); Methadone Screen, Urine Not Detected (NotDetected); Oxycodone Screen, Urine Not Detected (NotDetected); Tricyclic Antidepressant,Urine Not Detected (NotDetected)
[2017-11-28] MEDS ORDERED: LORazepam 1 MG TAB PO STA (16:46)
[2017-11-28] MEDS ORDERED: NICOTINE 21MG/24HR PATCH TRANSDERM STA (18:42)
[2017-11-28] MEDS ORDERED: ZIPRASIDONE 20 MG VIAL IM PRN (20:37)
[2017-11-28] MEDS: DICYCLOMINE 10 MG CAP PO SCH (21:43)
[2017-11-28] MEDS: PANTOPRAZOLE 40 MG TABLET PO SCH (21:43)
[2017-11-28] MEDS: busPIRone HCl 10 MG TAB PO SCH (21:43)
[2017-11-28] MEDS: TOPIRAMATE 100 MG TAB PO SCH (21:43)
[2017-11-28] MEDS: ATORVASTATIN 10 MG TAB PO SCH (21:51)
[2017-11-28] MEDS: guaiFENesin 600 MG TABLET.ER PO PRN (22:51)
[2017-11-29 00:56] VITALS: BMI 32.5
[2017-11-29] MEDS: clonazePAM 0.5 MG TAB PO PRN ×2 (01:26→15:10)
--- NOTE | 2017-11-29 05:50 | CONS ---
CONSULTATION DATE OF CONSULTATION: 11/28/2017. REASON FOR CONSULTATION: Medical management requested by Dr. Salazar. CONSULTATION: This is a 42-year-old patient of Dr. Sara Christie. Chronic stable medical conditions include fibromyalgia, hypothyroid, irritable bowel syndrome, lupus, GERD. Patient getting depressed, stressed out, anxious, some suicidal ideation, thoughts and decided to come in. The patient continues to smoke. Also got a cough and some wheezing. Also got some pain in the right hip and right away she asked me for some stronger pain medications. Patient just jumps from one topic to the other topic. Presented to the ER. REVIEW OF SYSTEMS: CONSTITUTIONAL: None. HEENT: None. RESPIRATORY: Wheezing, short of breath. CARDIOVASCULAR none. GASTROINTESTINAL: Heartburn. GENITOURINARY: None. MUSCULOSKELETAL: Some pain in the right hip. DERMATOLOGICAL: None. HEMATOLOGIC: None. LYMPHATIC: None. PSYCHIATRY: Anxious, depression. NEUROLOGICAL: None. PAST MEDICAL HISTORY: Fibromyalgia, hypertension, hypothyroid. ADHD, irritable bowel syndrome. PAST SURGICAL HISTORY: Appendectomy, , cholecystectomy. PSYCH HISTORY: Depression, ADHD. SOCIAL HISTORY: Smoking half a pack a day for several years. Urine drug screen is positive for amphetamines, methamphetamines, The patient smokes marijuana about 5 times a week. Denies alcohol. Lives with her son. FAMILY HISTORY: Pulmonary embolism, leukemia. HOME MEDICATIONS: 1. Bentyl 10 mg p.o. q.i.d. 2. Mucinex 600 mg p.o. q.12h p.r.n. 3. Catapres 0.2 mg p.o. q.h.s. 4. Buspirone 30 mg q.h.s. 5. Topamax 100 mg p.o. b.i.d. 6. Omeprazole 20 mg b.i.d. 7. Synthroid 137 mcg p.o. daily. 8. Probiotic 1 capsule p.o. daily. 9. Celexa 60 mg p.o. daily. 10.Vitamin D3 5000 units p.o. daily. 11.Lipitor 10 mg at bedtime. 12.Abilify 10 mg p.o. daily. ALLERGY: TO LATUDA, PAXIL, EFFEXOR. PHYSICAL EXAMINATION: VITAL SIGNS: Temperature 98.8, pulse 83, respirations 16, blood pressure 102/58, pulse 100 percent on room air. GENERAL APPEARANCE: Well built BMI 32.4 sitting up somewhat anxious-appearing. EYES: Pupils equal. Conjunctivae normal. HEENT: External appearance of nose and ears normal. Oral cavity normal. NECK: JVD not raised. Mass not palpable. RESPIRATORY: Effort increased. LUNGS decreased breath sounds. Some prolonged wheezing. CARDIOVASCULAR: 1st and 2nd sounds, no edema. ABDOMEN: Soft, nontender. Liver and spleen not palpable. LYMPHATICS: No lymph nodes palpable in the neck and axilla. PSYCHIATRY: Alert and oriented x3. Mood and affect anxious-appearing. NEUROLOGICAL: Pupils equal. Cranial nerves grossly intact. Power and sensation grossly intact. Gait dysfunction. The patient has been walking normally. INVESTIGATIONS: Urine drug screen positive for amphetamines, methamphetamine, marijuana. ASSESSMENT: 1. Chronic fibromyalgia, hypothyroidism, irritable bowel syndrome, Lupus, gastroesophageal reflux disease, obesity, BMI 32.4. 2. Chronic obstructive pulmonary disease in a current smoker. 3. Chronic nicotine dependence, patient is a cigarette smoker. 4. Recreational marijuana use. PLAN: Patient advised against smoking. Has got a nicotine patch. Will give nebulized bronchodilators. Home medications are resumed. Other psychiatry medications per Dr. Salazar. The patient should follow up with Dr. Sara Christie upon discharge. Thank you Dr. Salazar. MMJEANAL / IJN: [id number] /
[2017-11-29] MEDS: LEVOTHYROXINE 137 MCG TAB PO SCH (06:30)
[2017-11-29] MEDS: CITALOPRAM HYDROBROMIDE 20 MG TAB PO SCH (07:52)
[2017-11-29] MEDS: NICOTINE 21MG/24HR PATCH TRANSDERM SCH (07:52)
[2017-11-29] MEDS: PANTOPRAZOLE 40 MG TABLET PO SCH ×2 (07:52→16:38)
[2017-11-29] MEDS: TOPIRAMATE 100 MG TAB PO SCH ×2 (07:52→20:31)
[2017-11-29] MEDS: DICYCLOMINE 10 MG CAP PO SCH ×4 (07:53→20:32)
[2017-11-29] MEDS: IPRATROPIUM-ALBUTEROL 3 ML NEB INHALATION SCH ×3 (09:11→21:25)
[2017-11-29 11:07] LABS: Albumin 3.9 g/dL (3.5-5.0); Potassium 3.8 mmol/L (3.5-5.1); Total Bilirubin 0.4 mg/dL (0.2-1.3)
[2017-11-29 11:15] LABS: Anisocytosis Slight; Basophils # (A) 0.1 k/uL (0-0.2); Basophils % (A) 1 %; Eosinophils # (A) 0.3 k/uL (0-0.7); Eosinophils % (A) 3 %; HCT 36.7 % (34.0-46.0); HGB 11.5 gm/dL (11.4-16.0); Hypochromasia Moderate; Lymphocytes # (A) 3.5 k/uL (1.0-4.8); Lymphocytes % (A) 42 %; MCH 24.9 pg (25.0-35.0); MCHC 31.2 g/dL (31.0-37.0); MCV 79.7 fL (80.0-100.0); Mean Platelet Volume 6.9; Monocytes # (A) 0.3 k/uL (0-1.0); Monocytes % (A) 4 %; Neutrophils # (A) 4.2 k/uL (1.3-7.7); Neutrophils % (A) 49 %; Platelet Count 381 k/uL (150-450); RDW 16.2 % (11.5-15.5); WBC 8.4 k/uL (3.8-10.6)
[2017-11-29] MEDS: CHOLECALCIFEROL 1,000 UNIT TAB PO SCH (11:35)
--- NOTE | 2017-11-29 12:39 | P.HP ---
Psychiatric H&P - . H&P Date: 11/29/17 History & Physical: I feel depressed and don't ant to live anymore HPI: Patient reports not feeling well for a week. Was tired, depressed, isolating. Didn't want to do anything, see anybody or anyone see her, be at home by herself, for the past week. This has happended before but never this severe. Began to think of suicide, thoughts of throwing herself down the stairs, says she did not because of her children. PAST PSYCHIATRIC HISTORY: reports she has been treated for a long time, cannot give time frame. Has brief periods of feeling good. Has one attempt of OD on xanax. 3 hospitalizations PMH:hypothyroidism, HTN, high cholesteral, obesity ALLERGIES: Paxil, Effexor MEDICATIONS: per record CHEMICAL DEPENDENCY HISTORY: denies FAMILY PSYCHIATRIC HISTORY: denies FAMILY CHEMICAL DEPENDENCY HISTORY: brother with hx etoh use SOCIAL HISTORY: Lives by herself, her children are with others, friends. 2 youngest live with their father. She does not work, lives back child support payments. Allergies Allergy/AdvReac Type Severity Reaction Status Date / Time lurasidone [From Latuda] AdvReac Swelling Verified 11/29/17 00:16 paroxetine HCl [From Paxil] AdvReac Nausea & Verified 11/29/17 00:16 Vomiting venlafaxine [From Effexor] AdvReac Nausea & Verified 11/29/17 00:16 Vomiting Vital Signs Temp 98.2 F 11/29/17 02:23 Pulse 67 11/29/17 09:18 Resp 16 11/29/17 02:23 BP 137/73 11/29/17 02:23 Pulse Ox 100 11/28/17 20:44 Intake & Output 11/28/17 11/29/17 11/29/17 18:59 06:59 18:59 Weight 83.007 kg 83.4 kg Laboratory Last Values WBC 8.4 k/uL (3.8-10.6) 11/29/17 10:06 RBC 4.60 m/uL (3.80-5.40) 11/29/17 10:06 Hgb 11.5 gm/dL (11.4-16.0) 11/29/17 10:06 Hct 36.7 % (34.0-46.0) 11/29/17 10:06 MCV 79.7 fL (80.0-100.0) L 11/29/17 10:06 MCH 24.9 pg (25.0-35.0) L 11/29/17 10:06 MCHC 31.2 g/dL (31.0-37.0) 11/29/17 10:06 RDW 16.2 % (11.5-15.5) H 11/29/17 10:06 Plt Count 381 k/uL (150-450) 11/29/17 10:06 Neutrophils % 49 % 11/29/17 10:06 Lymphocytes % 42 % 11/29/17 10:06 Monocytes % 4 % 11/29/17 10:06 Eosinophils % 3 % 11/29/17 10:06 Basophils % 1 % 11/29/17 10:06 Neutrophils # 4.2 k/uL (1.3-7.7) 11/29/17 10:06 Lymphocytes # 3.5 k/uL (1.0-4.8) 11/29/17 10:06 Monocytes # 0.3 k/uL (0-1.0) 11/29/17 10:06 Eosinophils # 0.3 k/uL (0-0.7) 11/29/17 10:06 Basophils # 0.1 k/uL (0-0.2) 11/29/17 10:06 Hypochromasia Moderate 11/29/17 10:06 Anisocytosis Slight 11/29/17 10:06 Sodium 141 mmol/L (137-145) 11/29/17 10:06 Potassium 3.8 mmol/L (3.5-5.1) 11/29/17 10:06 Chloride 113 mmol/L (98-107) H 11/29/17 10:06 Carbon Dioxide 19 mmol/L (22-30) L 11/29/17 10:06 Anion Gap 9 mmol/L 11/29/17 10:06 BUN 14 mg/dL (7-17) 11/29/17 10:06 Creatinine 0.96 mg/dL (0.52-1.04) 11/29/17 10:06 Est GFR (CKD-EPI)AfAm 85 (>60 ml/min/1.73 sqM) 11/29/17 10:06 Est GFR (CKD-EPI)NonAf 74 (>60 ml/min/1.73 sqM) 11/29/17 10:06 Glucose 107 mg/dL (74-99) H 11/29/17 10:06 Calcium 10.0 mg/dL (8.4-10.2) 11/29/17 10:06 Total Bilirubin 0.4 mg/dL (0.2-1.3) 11/29/17 10:06 AST 17 U/L (14-36) 11/29/17 10:06 ALT 25 U/L (9-52) 11/29/17 10:06 Alkaline Phosphatase 43 U/L (38-126) 11/29/17 10:06 Total Protein 7.0 g/dL (6.3-8.2) 11/29/17 10:06 Albumin 3.9 g/dL (3.5-5.0) 11/29/17 10:06 Triglycerides 209 mg/dL (<150) H 11/29/17 10:06 Cholesterol 252 mg/dL (<200) H 11/29/17 10:06 LDL Cholesterol, Calc 177 mg/dL (0-99) H 11/29/17 10:06 HDL Cholesterol 33 mg/dL (40-60) L 11/29/17 10:06 TSH 0.609 mIU/L (0.465-4.680) 11/29/17 10:06 Urine Opiates Screen Not Detected (NotDetected) 11/28/17 15:11 Ur Oxycodone Screen Not Detected (NotDetected) 11/28/17 15:11 Urine Methadone Screen Not Detected (NotDetected) 11/28/17 15:11 Ur Propoxyphene Screen Not Detected (NotDetected) 11/28/17 15:11 Ur Barbiturates Screen Not Detected (NotDetected) 11/28/17 15:11 U Tricyclic Antidepress Not Detected (NotDetected) 11/28/17 15:11 Ur Phencyclidine Scrn Not Detected (NotDetected) 11/28/17 15:11 Ur Amphetamines Screen Detected (NotDetected) H 11/28/17 15:11 U Methamphetamines Scrn Detected (NotDetected) H 11/28/17 15:11 U Benzodiazepines Scrn Not Detected (NotDetected) 11/28/17 15:11 Urine Cocaine Screen Not Detected (NotDetected) 11/28/17 15:11 U Marijuana (THC) Screen Detected (NotDetected) H 11/28/17 15:11 11/29/17 12:21 11/29/17 12:32 Assessment and Plan Assessment: MENTAL STATUS EXAM: Patient lying in bed, difficult to coax out of bed but eventually came to office. Patient alert and oriented 3, poor eye contact, fair groomed in hospital attire. Speech low volume, slowed rate and decreased production. Coherent, logical and goal directed thought process. No HAKAN, no FOI. [No TB/TW/ TI] Denied auditory and visual hallucinations. Denied paranoid ideation, delusions or IOR. Memory [grossly intact] Cognition[average] Mood dysphoric, affect [constricted], congruent with mood. Denies suicidal ideation, denies homicidal ideation. Insight [none]; Judgment [grossly intact] STRENGTHS/WEAKNESSES: kind/lack of support INTELLECTUAL FUNCTIONING: average IMPRESSIONS: 41-year-old female with history of chronic recurrent depression, reporting anxiety fatigue and anhedonia lack of motivation. Vague suicidal ideation with plan to throw herself down her staircase but did not do it because she didn't want her children to suffer. Unclear why she is no longer at the residential parent. Possible characterologic issues, will need further information. Asking for medication for anxiety was the only spontaneous speech. No evidence of psychosis. No clear history of rebecca or hypomania. No suicidal ideation Bipolar II Borderline PD hx of opioid use disorder (1) Depression Current Visit: Yes Status: Chronic Priority: High Code(s): F32.9 - MAJOR DEPRESSIVE DISORDER, SINGLE EPISODE, UNSPECIFIED SNOMED Code(s): 96839429 (2) Suicidal thoughts Current Visit: No Status: Chronic Priority: Medium Code(s): R45.851 - SUICIDAL IDEATIONS SNOMED Code(s): 4324108 Plan: PLAN: BuSpar 10 mg 3 times a day. Will reduce the PRN dose of Ativan, and eventually D/C. Asked her to participate in the groups on the unit and other activities. She also agreed to let nursing staff know if she became suicidal. Continue inpatient psychiatric hospitalization Initial Plan of Care: [Planned to admit to mental health unit third floor at [facility] for formal voluntary admission. She'll be evaluated by medicine, psychiatry, social work, recreational therapist and integrated and a [facility]mil[facility] therapeutic environment patient will be obtained at a multispecialty came on a regular daily basis as to treatment and discharge planning.] Estimated Length of Stay: [5-7 days] Initial Discharge Plan: [home, [facility], referred to therapist Prognosis: [ fair] Justification for Inpatient Hospitalization - [anxiety, depression resulting in significant loss of functioning.] [Dangerous to self with need for controlled environment.] [Emotional or behavioral conditions and complications requiring 24 hour medical and nursing care.] [Need for special drug therapy, or other therapeutic program requiring continuous hospitalization.] [Failure of social or occupational functioning.] [Inability to meet basic life and health needs.] Check topamax level and T3, T4
[2017-11-29] MEDS: guaiFENesin 600 MG TABLET.ER PO PRN (13:20)
[2017-11-29] MEDS: ACETAMINOPHEN TAB 325 MG TAB PO PRN (13:20)
[2017-11-29] MEDS: cloNIDine HCL 0.1 MG TAB PO SCH ×2 (15:35→20:32)
[2017-11-29] MEDS: busPIRone HCl 10 MG TAB PO SCH (20:30)
[2017-11-29] MEDS: ATORVASTATIN 10 MG TAB PO SCH (20:31)
[2017-11-29] MEDS: HALOPERIDOL 0.5 MG TAB PO SCH (20:31)
[2017-11-29 20:54] LABS: Hemoglobin A1C 5.5 % (4.0-6.0)
[2017-11-30] MEDS: LEVOTHYROXINE 137 MCG TAB PO SCH (06:42)
[2017-11-30] MEDS: cloNIDine HCL 0.1 MG TAB PO SCH ×3 (08:31→20:19)
[2017-11-30] MEDS: NICOTINE 21MG/24HR PATCH TRANSDERM SCH (08:31)
[2017-11-30] MEDS: CITALOPRAM HYDROBROMIDE 20 MG TAB PO SCH (08:31)
[2017-11-30] MEDS: PANTOPRAZOLE 40 MG TABLET PO SCH ×2 (08:31→15:28)
[2017-11-30] MEDS: DICYCLOMINE 10 MG CAP PO SCH ×4 (08:32→20:19)
[2017-11-30] MEDS: TOPIRAMATE 100 MG TAB PO SCH ×2 (08:33→20:19)
[2017-11-30] MEDS: HALOPERIDOL 0.5 MG TAB PO SCH (08:33)
[2017-11-30] MEDS: guaiFENesin 600 MG TABLET.ER PO PRN ×2 (08:33→23:07)
[2017-11-30] MEDS: IPRATROPIUM-ALBUTEROL 3 ML NEB INHALATION SCH ×3 (09:52→19:31)
--- NOTE | 2017-11-30 11:23 | P.PN ---
Subjective Progress Note Date: 11/30/17 Principal diagnosis: bipolar I feel depressed and don't ant to live anymore HPI: Patient reports not feeling well for a week. Was tired, depressed, isolating. Didn't want to do anything, see anybody or anyone see her, be at home by herself, for the past week. This has happended before but never this severe. Began to think of suicide, thoughts of throwing herself down the stairs, says she did not because of her children. PAST PSYCHIATRIC HISTORY: reports she has been treated for a long time, cannot give time frame. Has brief periods of feeling good. Has one attempt of OD on xanax. 3 hospitalizations Objective - Vital Signs Vital signs: Vital Signs Temp 98.3 F 11/30/17 06:34 Pulse 91 11/30/17 08:51 Resp 16 11/30/17 08:51 BP 104/61 11/30/17 08:51 Pulse Ox 100 11/28/17 20:44 - Labs CBC & Chem 7: 11/29/17 10:06 11/29/17 10:06 Labs: Abnormal Lab Results - Last 24 Hours (Table) 11/29/17 Range/Units 10:06 MCV 79.7 L (80.0-100.0) fL MCH 24.9 L (25.0-35.0) pg RDW 16.2 H (11.5-15.5) % Assessment and Plan Assessment: MENTAL STATUS EXAM: Patient lying in bed, difficult to coax out of bed but eventually came to office. Patient alert and oriented 3, poor eye contact, fair groomed in hospital attire. Speech low volume, slowed rate and decreased production. Coherent, logical and goal directed thought process. No HAKAN, no FOI. [No TB/TW/ TI] Denied auditory and visual hallucinations. Denied paranoid ideation, delusions or IOR. Memory [grossly intact] Cognition[average] Mood dysphoric, affect [constricted], congruent with mood. Denies suicidal ideation, denies homicidal ideation. Insight [none]; Judgment [grossly intact] STRENGTHS/WEAKNESSES: kind/lack of support INTELLECTUAL FUNCTIONING: average IMPRESSIONS: 41-year-old female with history of chronic recurrent depression, reporting anxiety fatigue and anhedonia lack of motivation. Vague suicidal ideation with plan to throw herself down her staircase but did not do it because she didn't want her children to suffer. Unclear why she is no longer at the half-way parent. Possible characterologic issues, will need further information. Asking for medication for anxiety was the only spontaneous speech. No evidence of psychosis. No clear history of rebecca or hypomania. No suicidal ideation Bipolar II Borderline PD hx of opioid use disorder (1) Depression Current Visit: Yes Status: Chronic Priority: High Code(s): F32.9 - MAJOR DEPRESSIVE DISORDER, SINGLE EPISODE, UNSPECIFIED SNOMED Code(s): 93276642 (2) Suicidal thoughts Current Visit: No Status: Chronic Priority: Medium Code(s): R45.851 - SUICIDAL IDEATIONS SNOMED Code(s): 8575768 Plan: PLAN: BuSpar 10 mg 3 times a day. Will reduce the PRN dose of Ativan, and eventually D/C. Asked her to participate in the groups on the unit and other activities. She also agreed to let nursing staff know if she became suicidal. Continue inpatient psychiatric hospitalization Add Geodon 40 mg at bedtime Initial Plan of Care: [Planned to admit to mental health unit third floor at [facility] for formal voluntary admission. She'll be evaluated by medicine, psychiatry, social work, recreational therapist and integrated and a wardmilieu therapeutic environment patient will be obtained at a multispecialty came on a regular daily basis as to treatment and discharge planning.] Estimated Length of Stay: [5-7 days] Initial Discharge Plan: [home, [facility], referred to therapist Prognosis: [ fair] Justification for Inpatient Hospitalization - [anxiety, depression resulting in significant loss of functioning.] [Dangerous to self with need for controlled environment.] [Emotional or behavioral conditions and complications requiring 24 hour medical and nursing care.] [Need for special drug therapy, or other therapeutic program requiring continuous hospitalization.] [Failure of social or occupational functioning.] [Inability to meet basic life and health needs.] Check topamax level and T3, T4 are within normal Time with Patient: Less than 30
[2017-11-30] MEDS: CHOLECALCIFEROL 1,000 UNIT TAB PO SCH (11:39)
[2017-11-30] MEDS: ACETAMINOPHEN TAB 325 MG TAB PO PRN ×2 (11:39→16:43)
[2017-11-30] MEDS: ONDANSETRON ODT 4 MG TAB PO PRN (15:30)
[2017-11-30] MEDS: ATORVASTATIN 10 MG TAB PO SCH (20:18)
[2017-11-30] MEDS: busPIRone HCl 10 MG TAB PO SCH (20:19)
[2017-11-30] MEDS ORDERED: FLUCONAZOLE 150 MG TAB PO STA (20:30)
[2017-11-30] MEDS ORDERED: ZIPRASIDONE 40 MG CAP PO SCH (21:00)
[2017-11-30 21:19] LABS: Appearance,Urine Cloudy (Clear); Bilirubin,Urine Negative (Negative); Blood,Urine Large (Negative); Color,Urine Yellow; Glucose,Urine (UA) Negative (Negative); Ketones,Urine Negative (Negative); Leukocyte Esterase,Urine Negative (Negative); Mucus,Urine Moderate /hpf; Nitrite,Urine Negative (Negative); Protein,Urine 1+ (Negative); RBC,Urine >182 /hpf (0-5); Specific Gravity,Urine 1.032 (1.001-1.035); Squamous Epithelial Cell,Urine 20 /hpf (0-4); WBC,Urine 8 /hpf (0-5)
[2017-11-30] MEDS: MAG HYDROX/AL HYDROX/SIMETH 30 ML CUP PO PRN (23:07)
[2017-12-01] MEDS: clonazePAM 0.5 MG TAB PO PRN ×3 (00:24→23:45)
[2017-12-01] MEDS: LEVOTHYROXINE 137 MCG TAB PO SCH (06:30)
[2017-12-01] MEDS: NICOTINE 21MG/24HR PATCH TRANSDERM SCH (08:33)
[2017-12-01] MEDS: cloNIDine HCL 0.1 MG TAB PO SCH (08:34)
[2017-12-01] MEDS: CITALOPRAM HYDROBROMIDE 20 MG TAB PO SCH (08:34)
[2017-12-01] MEDS: PANTOPRAZOLE 40 MG TABLET PO SCH ×2 (08:34→17:33)
[2017-12-01] MEDS: TOPIRAMATE 100 MG TAB PO SCH ×2 (08:34→21:51)
[2017-12-01] MEDS: DICYCLOMINE 10 MG CAP PO SCH ×4 (08:34→21:51)
[2017-12-01] MEDS: IPRATROPIUM-ALBUTEROL 3 ML NEB INHALATION SCH ×3 (09:14→21:29)
--- NOTE | 2017-12-01 10:20 | P.PN ---
Subjective Progress Note Date: 12/01/17 Principal diagnosis: bipolar I feel depressed and don't ant to live anymore HPI: Patient reports not feeling well for a week. Was tired, depressed, isolating. Didn't want to do anything, see anybody or anyone see her, be at home by herself, for the past week. This has happended before but never this severe. Began to think of suicide, thoughts of throwing herself down the stairs, says she did not because of her children. PAST PSYCHIATRIC HISTORY: reports she has been treated for a long time, cannot give time frame. Has brief periods of feeling good. Has one attempt of OD on xanax. 3 hospitalizations Objective - Vital Signs Vital signs: Vital Signs Temp 98.6 F 11/30/17 08:51 Pulse 84 12/01/17 08:30 Resp 16 12/01/17 08:30 BP 94/55 12/01/17 08:30 Pulse Ox 100 11/30/17 08:51 - Labs CBC & Chem 7: 11/29/17 10:06 11/29/17 10:06 Labs: Abnormal Lab Results - Last 24 Hours (Table) 11/30/17 Range/Units Unknown Urine Appearance Cloudy H (Clear) Urine Protein 1+ H (Negative) Urine Blood Large H (Negative) Urine RBC >182 H (0-5) /hpf Urine WBC 8 H (0-5) /hpf Ur Squamous Epith Cells 20 H (0-4) /hpf Urine Mucus Moderate H (None) /hpf Assessment and Plan Assessment: MENTAL STATUS EXAM: Patient lying in bed, difficult to coax out of bed but eventually came to office. Patient alert and oriented 3, poor eye contact, fair groomed in hospital attire. Speech low volume, slowed rate and decreased production. Coherent, logical and goal directed thought process. No HAKAN, no FOI. [No TB/TW/ TI] Denied auditory and visual hallucinations. Denied paranoid ideation, delusions or IOR. Memory [grossly intact] Cognition[average] Mood dysphoric, affect [constricted], congruent with mood. Denies suicidal ideation, denies homicidal ideation. Insight [none]; Judgment [grossly intact] STRENGTHS/WEAKNESSES: kind/lack of support INTELLECTUAL FUNCTIONING: average IMPRESSIONS: 41-year-old female with history of chronic recurrent depression, reporting anxiety fatigue and anhedonia lack of motivation. Vague suicidal ideation with plan to throw herself down her staircase but did not do it because she didn't want her children to suffer. Unclear why she is no longer at the halfway parent. Possible characterologic issues, will need further information. Asking for medication for anxiety was the only spontaneous speech. No evidence of psychosis. No clear history of rebecca or hypomania. No suicidal ideation Bipolar II Borderline PD hx of opioid use disorder (1) Depression Current Visit: Yes Status: Chronic Priority: Low Code(s): F32.9 - MAJOR DEPRESSIVE DISORDER, SINGLE EPISODE, UNSPECIFIED SNOMED Code(s): 95952349 (2) Suicidal thoughts Current Visit: No Status: Chronic Priority: Low Code(s): R45.851 - SUICIDAL IDEATIONS SNOMED Code(s): 7995372 Plan: PLAN: BuSpar 10 mg 3 times a day. Will reduce the PRN dose of Ativan, and eventually D/C. Asked her to participate in the groups on the unit and other activities. She also agreed to let nursing staff know if she became suicidal. Continue inpatient psychiatric hospitalization Haldol 2 mg at bedtime and Requio .75 mg at bedtime Initial Plan of Care: [Planned to admit to mental health unit third floor at [facility] for formal voluntary admission. She'll be evaluated by medicine, psychiatry, social work, recreational therapist and integrated and a wardmilieu therapeutic environment patient will be obtained at a multispecialty came on a regular daily basis as to treatment and discharge planning.] Estimated Length of Stay: [1 days] Initial Discharge Plan: [[place], [facility], referred to therapist tomorrow Prognosis: [ fair] Justification for Inpatient Hospitalization - [anxiety, depression resulting in significant loss of functioning.] [Dangerous to self with need for controlled environment.] [Emotional or behavioral conditions and complications requiring 24 hour medical and nursing care.] [Need for special drug therapy, or other therapeutic program requiring continuous hospitalization.] [Failure of social or occupational functioning.] [Inability to meet basic life and health needs.] Check topamax level and T3, T4 are within normal Time with Patient: Less than 30
[2017-12-01] MEDS: guaiFENesin 600 MG TABLET.ER PO PRN (10:55)
[2017-12-01] MEDS: CHOLECALCIFEROL 1,000 UNIT TAB PO SCH (12:14)
[2017-12-01] MEDS: ACETAMINOPHEN TAB 325 MG TAB PO PRN ×2 (12:15→23:45)
[2017-12-01] MEDS ORDERED: cloNIDine HCL 0.2 MG TAB PO SCH (13:00)
[2017-12-01] MEDS ORDERED: HALOPERIDOL 1 MG TAB PO SCH (21:00)
[2017-12-01] MEDS: ATORVASTATIN 10 MG TAB PO SCH ×2 (21:51→21:56)
[2017-12-01] MEDS: MAG HYDROX/AL HYDROX/SIMETH 30 ML CUP PO PRN (23:45)
[2017-12-02] MEDS: LEVOTHYROXINE 137 MCG TAB PO SCH (06:12)
[2017-12-02] MEDS: TOPIRAMATE 100 MG TAB PO SCH ×2 (08:30→21:26)
[2017-12-02] MEDS: DICYCLOMINE 10 MG CAP PO SCH ×4 (08:30→21:23)
[2017-12-02] MEDS: CITALOPRAM HYDROBROMIDE 20 MG TAB PO SCH (08:30)
[2017-12-02] MEDS: NICOTINE 21MG/24HR PATCH TRANSDERM SCH (08:30)
[2017-12-02] MEDS: clonazePAM 0.5 MG TAB PO PRN ×2 (08:30→15:45)
[2017-12-02] MEDS: PANTOPRAZOLE 40 MG TABLET PO SCH ×2 (08:31→17:23)
[2017-12-02] MEDS: guaiFENesin 600 MG TABLET.ER PO PRN (08:31)
[2017-12-02] MEDS: IPRATROPIUM-ALBUTEROL 3 ML NEB INHALATION SCH ×2 (09:29→21:49)
--- NOTE | 2017-12-02 10:25 | P.PN ---
Subjective Progress Note Date: 12/02/17 Principal diagnosis: bipolar I feel depressed and don't ant to live anymore HPI: Patient reports not feeling well for a week. Was tired, depressed, isolating. Didn't want to do anything, see anybody or anyone see her, be at home by herself, for the past week. This has happended before but never this severe. Began to think of suicide, thoughts of throwing herself down the stairs, says she did not because of her children. PAST PSYCHIATRIC HISTORY: reports she has been treated for a long time, cannot give time frame. Has brief periods of feeling good. Has one attempt of OD on xanax. 3 hospitalizations Objective - Vital Signs Vital signs: Vital Signs Temp 98.6 F 12/02/17 01:10 Pulse 85 12/02/17 01:10 Resp 18 12/02/17 01:10 BP 116/63 12/02/17 01:10 Pulse Ox 100 11/30/17 08:51 - Labs CBC & Chem 7: 11/29/17 10:06 11/29/17 10:06 Assessment and Plan Assessment: MENTAL STATUS EXAM: Patient lying in bed, difficult to coax out of bed but eventually came to office. Patient alert and oriented 3, poor eye contact, fair groomed in hospital attire. Speech low volume, slowed rate and decreased production. Coherent, logical and goal directed thought process. No HAKAN, no FOI. [No TB/TW/ TI] Denied auditory and visual hallucinations. Denied paranoid ideation, delusions or IOR. Memory [grossly intact] Cognition[average] Mood dysphoric, affect [constricted], congruent with mood. Denies suicidal ideation, denies homicidal ideation. Insight [none]; Judgment [grossly intact] STRENGTHS/WEAKNESSES: kind/lack of support INTELLECTUAL FUNCTIONING: average IMPRESSIONS: 41-year-old female with history of chronic recurrent depression, reporting anxiety fatigue and anhedonia lack of motivation. Vague suicidal ideation with plan to throw herself down her staircase but did not do it because she didn't want her children to suffer. Unclear why she is no longer at the jail parent. Possible characterologic issues, will need further information. Asking for medication for anxiety was the only spontaneous speech. No evidence of psychosis. No clear history of rebecca or hypomania. No suicidal ideation Bipolar II Borderline PD hx of opioid use disorder (1) Depression Current Visit: Yes Status: Chronic Priority: High Code(s): F32.9 - MAJOR DEPRESSIVE DISORDER, SINGLE EPISODE, UNSPECIFIED SNOMED Code(s): 38971316 (2) Suicidal thoughts Current Visit: No Status: Chronic Priority: Low Code(s): R45.851 - SUICIDAL IDEATIONS SNOMED Code(s): 0119056 Plan: PLAN: BuSpar 10 mg 3 times a day. Will reduce the PRN dose of Ativan, and eventually D/C. Asked her to participate in the groups on the unit and other activities. She also agreed to let nursing staff know if she became suicidal. Continue inpatient psychiatric hospitalization Haldol 4 mg at bedtime and Requio 2mg at bedtime, increase topamax 200 mg bid Initial Plan of Care: [Planned to admit to mental health unit third floor at [facility] for formal voluntary admission. She was evaluated by medicine, psychiatry, social work, recreational therapist and [facility] patient will be obtained at a multispecialty came on a regular daily basis as to treatment and discharge planning.] Estimated Length of Stay: [3 days] Initial Discharge Plan: [home, [facility], referred to therapist tomorrow Prognosis: [ fair] Justification for Inpatient Hospitalization - [anxiety, depression resulting in significant loss of functioning.] [Dangerous to self with need for controlled environment.] [Emotional or behavioral conditions and complications requiring 24 hour medical and nursing care.] [Need for special drug therapy, or other therapeutic program requiring continuous hospitalization.] [Failure of social or occupational functioning.] [Inability to meet basic life and health needs.] Check topamax level and T3, T4 are within normal
[2017-12-02] MEDS: CHOLECALCIFEROL 1,000 UNIT TAB PO SCH (10:51)
[2017-12-02] MEDS: ACETAMINOPHEN TAB 325 MG TAB PO PRN (10:52)
[2017-12-02] MEDS: MAGNESIUM HYDROXIDE 2,400 MG/10 ML CUP PO PRN (10:52)
[2017-12-02] MEDS: ONDANSETRON ODT 4 MG TAB PO PRN (10:52)
[2017-12-02] MEDS ORDERED: HALOPERIDOL 2 MG TAB PO SCH (21:00)
[2017-12-02] MEDS ORDERED: cloNIDine HCL 0.1 MG TAB PO SCH (21:00)
[2017-12-02] MEDS: HALOPERIDOL 0.5 MG TAB PO SCH (21:24)
[2017-12-02] MEDS: cloNIDine HCL 0.1 MG TAB PO SCH (21:25)
[2017-12-02] MEDS: ATORVASTATIN 10 MG TAB PO SCH (21:25)
[2017-12-03] MEDS: clonazePAM 0.5 MG TAB PO PRN ×3 (00:55→23:40)
[2017-12-03] MEDS: LEVOTHYROXINE 137 MCG TAB PO SCH (06:06)
[2017-12-03] MEDS: NICOTINE 21MG/24HR PATCH TRANSDERM SCH (08:51)
[2017-12-03] MEDS: CHOLECALCIFEROL 1,000 UNIT TAB PO SCH (08:51)
[2017-12-03] MEDS: CITALOPRAM HYDROBROMIDE 20 MG TAB PO SCH (08:51)
[2017-12-03] MEDS: PANTOPRAZOLE 40 MG TABLET PO SCH ×2 (08:52→17:30)
[2017-12-03] MEDS: DICYCLOMINE 10 MG CAP PO SCH ×4 (08:52→22:30)
[2017-12-03] MEDS: IPRATROPIUM-ALBUTEROL 3 ML NEB INHALATION SCH ×3 (08:52→21:16)
[2017-12-03] MEDS: TOPIRAMATE 100 MG TAB PO SCH ×2 (08:52→22:30)
[2017-12-03] MEDS: cloNIDine HCL 0.1 MG TAB PO SCH ×4 (08:54→22:31)
[2017-12-03] MEDS: MAGNESIUM HYDROXIDE 2,400 MG/10 ML CUP PO PRN (11:07)
[2017-12-03] MEDS: guaiFENesin 600 MG TABLET.ER PO PRN (14:11)
--- NOTE | 2017-12-03 14:21 | P.PN ---
Progress Note - Text Progress Note Date: 12/03/17 Interval history: [place] [facility] [place]. She reports that she couldn't sleep last night and was agitated. Klonopin when necessary was re- ordered and she states that this was beneficial for her. She does describe that overall emotionally she feels better compared to admission. Mental status exam: She is alert and cooperative with the interview. Her speech is fluent, not rapid or pressured. Thought processes organized. Her mood overall she seems to describe improvement. She does describe feeling tired today. She does denies any thoughts of harm to self or others. No evidence of psychosis or agitation. Plan: Patient will be maintained on current psychotropic medication regimen. Continue to monitor for any medication side effects and monitor for ongoing response.
[2017-12-03] MEDS: ACETAMINOPHEN TAB 325 MG TAB PO PRN (17:00)
[2017-12-03] MEDS: MAG HYDROX/AL HYDROX/SIMETH 30 ML CUP PO PRN (17:02)
[2017-12-03] MEDS: ATORVASTATIN 10 MG TAB PO SCH (21:48)
[2017-12-03] MEDS: HALOPERIDOL 0.5 MG TAB PO SCH (22:30)
[2017-12-04] MEDS: LEVOTHYROXINE 137 MCG TAB PO SCH (05:58)
[2017-12-04 06:58] VITALS: PULSE 88
[2017-12-04] MEDS: TOPIRAMATE 100 MG TAB PO SCH ×2 (08:50→22:11)
[2017-12-04] MEDS: PANTOPRAZOLE 40 MG TABLET PO SCH ×2 (08:50→17:22)
[2017-12-04] MEDS: DICYCLOMINE 10 MG CAP PO SCH ×4 (08:50→23:46)
[2017-12-04] MEDS: CITALOPRAM HYDROBROMIDE 20 MG TAB PO SCH (08:51)
[2017-12-04] MEDS: CHOLECALCIFEROL 1,000 UNIT TAB PO SCH (08:51)
[2017-12-04] MEDS: NICOTINE 21MG/24HR PATCH TRANSDERM SCH (08:51)
[2017-12-04] MEDS: cloNIDine HCL 0.1 MG TAB PO SCH ×4 (08:54→22:11)
[2017-12-04] MEDS: IPRATROPIUM-ALBUTEROL 3 ML NEB INHALATION SCH ×3 (09:32→19:13)
[2017-12-04] MEDS: ACETAMINOPHEN TAB 325 MG TAB PO PRN (11:23)
[2017-12-04] MEDS ORDERED: SENNOSIDES 8.6 MG TAB PO PRN (13:28)
--- NOTE | 2017-12-04 14:02 | P.PN ---
Progress Note - Text Progress Note Date: 12/04/17 Interval history: Patient is again seen in cross coverage today. She relays that she had quite a bit of anxiety last night and had difficulty sleeping so she did take a Klonopin when necessary which did definitely give her benefit. She describes being startled just prior to this meeting by a male who came into the room that she was in and laid down on the floor, staff did intervene. She describes that she does feel like she is ready for discharge planning for tomorrow. Mental status exam: She is alert and cooperative with the interview. Her speech is fluent, not rapid or pressured. Thought processes are organized. She denies any thoughts of harm to self or others. Regarding mood she says she is not depressed and describes her mood is doing better. She does not show any agitation. Plan: Patient will be maintained on current psychotropic medication regimen. We 'll continue to monitor for any medication side effects and monitor her ongoing response to treatment. Potential discharge as soon as tomorrow.
[2017-12-04] MEDS: DOCUSATE 100 MG CAP PO PRN ×2 (14:04→22:17)
[2017-12-04] MEDS: clonazePAM 0.5 MG TAB PO PRN ×2 (14:48→22:13)
[2017-12-04] MEDS: CEPHALEXIN 500 MG CAP PO SCH ×2 (16:07→22:11)
[2017-12-04] MEDS: traMADol 50 MG TAB PO SCH ×2 (16:23→22:13)
--- NOTE | 2017-12-04 20:45 | P.PN ---
Subjective On-call hospitalist, covering for Dr. Ford Reason for consult: Constipation This is a pleasant 42 years old female with past medical history of fibromyalgia , hypertension, thyroid disorder, constipation with diarrhea, appendectomy, and section and cholecystectomy. pt is been admitted for suicidal ideation and depression and is been managed for this by the primary psychiatrist team Patient complained to me from constipation for the last 3-4 days. No abdominal pain. No nausea vomiting. However she complains from some dysuria. On admission her UA was abnormal. However she has current menstrual cycle which started today as per patient. Patient states that her period was irregular lately and that she follow up with her primary care doctor for that. I offered to do test for the patient, however patient declined. Risks, benefits , and alternatives are explained to the patient including but not limited to the risk of teratogenicity. She verbalized understanding and still does not want to be checked. Patient also with history of hypothyroidism on treatment. History of hyperlipidemia on Lipitor 10 mg. However on admission her lipid profile was abnormal, and recommended to increase her Lipitor to 20 mg daily. Also patient complaining of from cough with some green yellow phlegm for the last 1 week with no dyspnea or chest pain Objective - Vital Signs Vital signs: Vital Signs Temp 98.4 F 12/04/17 06:57 Pulse 88 12/04/17 09:03 Resp 20 12/04/17 09:03 BP 109/66 12/04/17 09:03 Pulse Ox 100 11/30/17 08:51 - Exam GENERAL: The patient is alert and oriented x3, not in any acute distress. Obese HEENT: Pupils are round and equally reacting to light. EOMI. No scleral icterus. No conjunctival pallor. Normocephalic, atraumatic. No pharyngeal erythema. No thyromegaly. CARDIOVASCULAR: S1 and S2 present. No murmurs, rubs, or gallops. PULMONARY: Chest is clear to auscultation, no wheezing or crackles. ABDOMEN: Soft, nontender, nondistended, normoactive bowel sounds. No palpable organomegaly. MUSCULOSKELETAL: No joint swelling or deformity. EXTREMITIES: No cyanosis, clubbing, or pedal edema. NEUROLOGICAL: Gross neurological examination did not reveal any focal deficits. SKIN: No rashes. - Labs CBC & Chem 7: 11/29/17 10:06 11/29/17 10:06 Assessment and Plan Assessment: Constipation, with no abdominal pain or nausea vomiting. UTI Possible upper respiratory tract infection, check influenza virus test Patient states she has irregular menses, patient counseled to follow up with her doctor. Hyperlipidemia History of hypothyroidism under treatment Current smoker Plan: We recommend to continue with same treatment. Continue with symptomatic treatment. Resume home medications. Increase Lipitor to 20 mg daily. Continue with levothyroxine. Symptomatic treatment for constipation as Colace/ senna when necessary. Start antibiotics for empiric treatment of her UTI, And upper respiratory tract infection. Check influenza virus. Patient is counseled about quitting smoking. Nicotine patch is ordered.
[2017-12-04] MEDS ORDERED: ATORVASTATIN 20 MG TAB PO SCH (21:00)
[2017-12-04] MEDS: HALOPERIDOL 0.5 MG TAB PO SCH (22:10)
[2017-12-04] MEDS: MAGNESIUM HYDROXIDE 2,400 MG/10 ML CUP PO PRN (22:17)
[2017-12-05] MEDS: LEVOTHYROXINE 137 MCG TAB PO SCH (05:25)
[2017-12-05 05:29] VITALS: BP 117/67; RESP 16; TEMP 97.6
[2017-12-05] MEDS: NICOTINE 21MG/24HR PATCH TRANSDERM SCH (07:50)
[2017-12-05] MEDS: CITALOPRAM HYDROBROMIDE 20 MG TAB PO SCH (07:50)
[2017-12-05] MEDS: cloNIDine HCL 0.1 MG TAB PO SCH ×2 (07:51→11:55)
[2017-12-05] MEDS: DICYCLOMINE 10 MG CAP PO SCH ×2 (07:51→11:54)
[2017-12-05] MEDS: traMADol 50 MG TAB PO SCH (07:51)
[2017-12-05] MEDS: CEPHALEXIN 500 MG CAP PO SCH (07:51)
[2017-12-05] MEDS: TOPIRAMATE 100 MG TAB PO SCH (07:51)
[2017-12-05] MEDS: DOCUSATE 100 MG CAP PO PRN (07:52)
[2017-12-05] MEDS: PANTOPRAZOLE 40 MG TABLET PO SCH (07:54)
[2017-12-05] MEDS: IPRATROPIUM-ALBUTEROL 3 ML NEB INHALATION SCH ×2 (09:16→14:12)
--- NOTE | 2017-12-05 09:41 | P.DS ---
Providers Date of admission: 11/28/17 20:36 Expected date of discharge: 12/05/17 Attending physician: Sen Salazar, DO Consults: 11/28/17 20:37 Consult Physician Routine Consulting Provider: Wilfredo Ford Consult Reason/Comments: Medical Management Do you want consulting provider notified?: Yes 12/04/17 00:42 Consult Physician Routine Consulting Provider: Wilfredo Ford Consult Reason/Comments: constipation Do you want consulting provider notified?: Yes, Notify in am Primary care physician: Sara Christie - Discharge Diagnosis(es) (1) Depression History & Physical: I feel depressed and don't ant to live anymore HPI: Patient reports not feeling well for a week. Was tired, depressed, isolating. Didn't want to do anything, see anybody or anyone see her, be at home by herself, for the past week. This has happended before but never this severe. Began to think of suicide, thoughts of throwing herself down the stairs, says she did not because of her children. Current Visit: Yes Status: Chronic Priority: Low (2) Suicidal thoughts Current Visit: No Status: Chronic Priority: Low Hospital Course: PAST PSYCHIATRIC HISTORY: reports she has been treated for a long time, cannot give time frame. Has brief periods of feeling good. Has one attempt of OD on xanax. 3 hospitalizations HOSPITAL COURSE: Patient was admitted to mental health unit. A medical consultation was ordered and the patient was followed by an it operations manager for his medical problems. The patient was started on medications listed below and discontinued abilify and klonopin,. The patient responded well to the prescribed medications. The patient's mood, energy level and sleep improved. There were no aggressive behaviors noted during the hospital stay. The patient had improved frustration tolerance. She requested to be discharged home to her boyfriend today as he will not be able to pick her up tomorrow. CONDITION ON DISCHARGE: On mental status examination, patient was cooperative and pleasant. The patient denied any suicidal and homicidal ideations, intent, or plan. The patient was future oriented. She was planning to take her kids and get her own apartment. The patient denied any audio/visual hallucinations or delusions. The patient appeared to be physchiatrically stable and almost back to the baseline level of functioning. Patient Condition at Discharge: Stable Patient Condition at Discharge: Stable Plan - Discharge Summary Discharge Rx Participant: Yes New Discharge Prescriptions: New Atorvastatin [Lipitor] 40 mg PO DAILY 30 Days #30 tablet Cephalexin [Keflex] 500 mg PO TID 30 Days #90 cap cloNIDine HCL [Catapres] 0.1 mg PO QID 30 Days #120 tab Haloperidol [Haldol] 4 mg PO 2100 30 Days #30 tab Ipratropium-Albuterol Nebulize [Duoneb 0.5 mg-3 mg/3 ml Soln] 3 ml INHALATION RT-TID 30 Days #1 ampul.neb Nicotine 21Mg/24Hr Patch [Habitrol] 1 patch TRANSDERM DAILY 30 Days #30 patch Ondansetron Odt [Zofran ODT] 4 mg PO Q8HR PRN 30 Days #30 tab PRN Reason: Nausea And Vomiting Pantoprazole [Protonix] 40 mg PO AC-BID 30 Days #30 tablet. rOPINIRole HCL [Requip] 2 mg PO 2100 30 Days #30 tab Topiramate [Topamax] 200 mg PO BID 30 Days #60 tab traMADol HCl [Ultram] 50 mg PO TID tab Continue cloNIDine HCL [Catapres] 0.2 mg OP HS Citalopram Hydrobromide [CeleXA] 60 mg PO QAM 30 Days #60 tablet Dicyclomine [Bentyl] 10 mg PO QID 30 Days #120 cap Levothyroxine Sodium [Synthroid] 137 mcg PO DAILY 30 Days #30 tab Discontinued Topiramate [Topamax] 100 mg PO BID Atorvastatin Calcium [Lipitor] 10 mg PO HS Omeprazole 20 mg PO AC-BID L.acidoph,Paracasei, B.lactis [Probiotic] 1 cap PO BID Cholecalciferol [Vitamin D3] 5,000 unit PO DAILY ARIPiprazole [Abilify] 10 mg PO DAILY busPIRone HCL 30 mg PO HS guaiFENesin [Mucinex] 600 mg PO Q12H PRN PRN Reason: Cold Symptoms Discharge Medication List cloNIDine HCL [Catapres] 0.2 mg OP HS 11/28/17 [History] Atorvastatin [Lipitor] 40 mg PO DAILY 30 Days #30 tablet 12/05/17 [Rx] Cephalexin [Keflex] 500 mg PO TID 30 Days #90 cap 12/05/17 [Rx] Citalopram Hydrobromide [CeleXA] 60 mg PO QAM 30 Days #60 tablet 12/05/17 [Rx] Dicyclomine [Bentyl] 10 mg PO QID 30 Days #120 cap 12/05/17 [Rx] Haloperidol [Haldol] 4 mg PO 2100 30 Days #30 tab 12/05/17 [Rx] Ipratropium-Albuterol Nebulize [Duoneb 0.5 mg-3 mg/3 ml Soln] 3 ml INHALATION RT -TID 30 Days #1 ampul.neb 12/05/17 [Rx] Levothyroxine Sodium [Synthroid] 137 mcg PO DAILY 30 Days #30 tab 12/05/17 [Rx] Nicotine 21Mg/24Hr Patch [Habitrol] 1 patch TRANSDERM DAILY 30 Days #30 patch [Rx] Ondansetron Odt [Zofran ODT] 4 mg PO Q8HR PRN 30 Days #30 tab 12/05/17 [Rx] Pantoprazole [Protonix] 40 mg PO AC-BID 30 Days #30 tablet.dr 12/05/17 [Rx] Topiramate [Topamax] 200 mg PO BID 30 Days #60 tab 12/05/17 [Rx] cloNIDine HCL [Catapres] 0.1 mg PO QID 30 Days #120 tab 12/05/17 [Rx] rOPINIRole HCL [Requip] 2 mg PO 2100 30 Days #30 tab 12/05/17 [Rx] traMADol HCl [Ultram] 50 mg PO TID tab 12/05/17 [Rx] Follow up Appointment(s)/Referral(s): Sara Christie DO [Primary Care Provider] - 1-2 days Patient Instructions/Handouts: Depression (DC), Help Prevent Suicide (DC), Anxiety (ED) Activity/Diet/Wound Care/Special Instructions: Activity and Diet as tolerated. Avoid the use of street drugs and alcohol. Take all medications as prescribed, when you are in need of refills contact your medical doctor or psychiatrist. Please go to all scheduled outpatient appointments for aftercare treatment. If symptoms return or worsen you can call the crisis line @ and/or return to the nearest emergency room for evaluation. Follow up with OBGYN at discharge for irregular periods. Discharge Disposition: HOME SELF-CARE
[2017-12-05] MEDS: CHOLECALCIFEROL 1,000 UNIT TAB PO SCH (11:54)
== END 2017-12-05 13:50 | disposition home or self-care (01) | DRG 885 ==
LOC: EC 14:54 → 3MHU 20:36
PROVIDERS: ADMIT Psychiatry & Neurology Psychiatry; ATTEND Psychiatry & Neurology Psychiatry
DX: F31.81 Bipolar II disorder (principal); N39.0 Urinary tract infection, site not specified; R45.851 Suicidal ideations; E03.9 Hypothyroidism, unspecified; E66.9 Obesity, unspecified; E78.5 Hyperlipidemia, unspecified; F17.210 Nicotine dependence, cigarettes, uncomplicated; F12.90 Cannabis use, unspecified, uncomplicated; F41.9 Anxiety disorder, unspecified; F60.3 Borderline personality disorder; F90.9 Attention-deficit hyperactivity disorder, unspecified type; I10 Essential (primary) hypertension; J44.9 Chronic obstructive pulmonary disease, unspecified; K21.9 Gastro-esophageal reflux disease without esophagitis; K58.1 Irritable bowel syndrome with constipation; M79.7 Fibromyalgia; N92.6 Irregular menstruation, unspecified; Z68.32 Body mass index [BMI] 32.0-32.9, adult; Z79.899 Other long term (current) drug therapy; Z80.6 Family history of leukemia; Z82.49 Family history of ischemic heart disease and other diseases of the circulatory system; Z83.3 Family history of diabetes mellitus; Z71.6 Tobacco abuse counseling; Z88.8 Allergy status to other drugs, medicaments and biological substances; Z91.5 Personal history of self-harm; Z81.1 Family history of alcohol abuse and dependence; R45.84 Anhedonia; Z60.2 Problems related to living alone; R53.83 Other fatigue; M25.551 Pain in right hip; M32.9 Systemic lupus erythematosus, unspecified; J06.9 Acute upper respiratory infection, unspecified
CPT/HCPCS: 80053; 80061; 80201; 80306; 81001; 81025; 82075; 83036; 84436; 84443; 84480; 85025; 87502; 94640; 99285

== ENCOUNTER 2021-01-24 22:29 | Emergency (ER) | payer MEDICARE, OTHER ==
[2021-01-24] MEDS ORDERED: DIPH,PERTUS(ACELL)TETVAC-LF 0.5 ML VIAL IM ONE (23:23)
--- NOTE | 2021-01-24 23:27 | ED ---
Extremity Problem HPI - General Stated complaint: Injury,LT Shoulder Time Seen by Provider: 01/24/21 23:19 - History of Present Illness Initial comments: 45 year-old female patient presents for evaluation of left shoulder pain. States she was walking her dog when it got a way and she was chasing it down a hill. States she couldn't stop herself and she ran into a tree then fell onto the ground. States she is having left shoulder pain. She does report hitting her head on the tree. Reports positive loss of consciousness. Reports nausea. Denies vomiting. She denies any numbness or tingling in the arm. She denies drinking alcohol today. - Related Data Home Medications Medication Instructions Recorded Confirmed cloNIDine HCL [Catapres] 0.2 mg OP HS 11/28/17 11/29/17 Previous Rx's Medication Instructions Recorded Atorvastatin [Lipitor] 40 mg PO DAILY 30 Days #30 tablet 12/05/17 Cephalexin [Keflex] 500 mg PO TID 30 Days #90 cap 12/05/17 Citalopram Hydrobromide [CeleXA] 60 mg PO QAM 30 Days #60 tablet 12/05/17 Dicyclomine [Bentyl] 10 mg PO QID 30 Days #120 cap 12/05/17 Ipratropium-Albuterol Nebulize 3 ml INHALATION RT-TID 30 Days #1 12/05/17 [Duoneb 0.5 mg-3 mg/3 ml Soln] ampul.neb Levothyroxine Sodium [Synthroid] 137 mcg PO DAILY 30 Days #30 tab 12/05/17 Nicotine 21Mg/24Hr Patch [Habitrol] 1 patch TRANSDERM DAILY 30 Days 12/05/17 #30 patch Ondansetron Odt [Zofran ODT] 4 mg PO Q8HR PRN 30 Days #30 tab 12/05/17 Pantoprazole [Protonix] 40 mg PO AC-BID 30 Days #30 12/05/17 tablet. Topiramate [Topamax] 200 mg PO BID 30 Days #60 tab 12/05/17 cloNIDine HCL [Catapres] 0.1 mg PO QID 30 Days #120 tab 12/05/17 haloperidoL [Haldol] 4 mg PO 2100 30 Days #30 tab 12/05/17 rOPINIRole HCL [Requip] 2 mg PO 2100 30 Days #30 tab 12/05/17 traMADol HCl [Ultram] 50 mg PO TID tab 12/05/17 Allergies Allergy/AdvReac Type Severity Reaction Status Date / Time lurasidone [From Latuda] AdvReac Swelling Verified 01/24/21 23:22 paroxetine HCl [From Paxil] AdvReac Nausea & Verified 01/24/21 23:22 Vomiting venlafaxine [From Effexor] AdvReac Nausea & Verified 01/24/21 23:22 Vomiting Review of Systems ROS Statement: Those systems with pertinent positive or pertinent negative responses have been documented in the HPI. ROS Other: All systems not noted in ROS Statement are negative. Past Medical History Past Medical History: Fibromyalgia, Hypertension, Thyroid Disorder Additional Past Medical History / Comment(s): ADHD, abd pain,constipation with diarrhea,intestinal infection Dec/Jan 2015,rt kidney dehydrated Feb 2015, hypokalemia, leukopenia History of Any Multi-Drug Resistant Organisms: None Reported Past Surgical History: Appendectomy, Section, Cholecystectomy Past Anesthesia/Blood Transfusion Reactions: No Reported Reaction Past Psychological History: ADD/ADHD, Depression Past Alcohol Use History: Occasional Past Drug Use History: Marijuana - Past Family History Mother Family Medical History: Cancer, Pulmonary Embolus Additional Family Medical History / Comment(s): leukemia Father Family Medical History: Diabetes Mellitus, Hypertension Additional Family Medical History / Comment(s): heart valve problems Brother(s) Additional Family Medical History / Comment(s): She has one brother with no major medical problems. Patient does not have any sisters. General Exam General appearance: alert, in no apparent distress, other (This is a well- developed, well-nourished adult female in mild distress related to pain.) Eye exam: Present: normal appearance, PERRL, EOMI. Absent: scleral icterus, conjunctival injection, periorbital swelling ENT exam: Present: normal oropharynx, other (Abrasion noted to the tip of the nose). Absent: normal exam Neck exam: Present: normal inspection, tenderness (Posterior cervical spinal tenderness). Absent: meningismus, lymphadenopathy Respiratory exam: Present: normal lung sounds bilaterally. Absent: respiratory distress, wheezes, rales, rhonchi, stridor Cardiovascular Exam: Present: regular rate, normal rhythm, normal heart sounds. Absent: systolic murmur, diastolic murmur, rubs, gallop, clicks GI/Abdominal exam: Present: soft, normal bowel sounds. Absent: distended, tenderness, guarding, rebound, rigid Extremities exam: Present: full ROM, normal capillary refill, other (Swelling noted to the left shoulder. Skin to the left arm is pink, warm, dry. Cap refill less than 3 seconds. Radial pulses 2+. Full extension of left wrist intact.). Absent: normal inspection, tenderness, pedal edema, joint swelling, calf tenderness Back exam: Present: normal inspection. Absent: vertebral tenderness Neurological exam: Present: alert, oriented X3, CN II-XII intact Psychiatric exam: Present: normal affect, normal mood Skin exam: Present: warm, dry, intact, normal color. Absent: rash Course Vital Signs 01/24/21 23:17 Temperature 98.1 F Pulse Rate 80 Respiratory 22 Rate Blood Pressure 105/73 O2 Sat by Pulse 95 Oximetry Medical Decision Making - Medical Decision Making 45-year-old female patient presented to the emergency department today for evaluation of left shoulder pain after experiencing an injury. She was running downhill after her dog when she hit a tree and fell. States she possibly lost consciousness. She is neurologically intact with no focal deficits. CT brain C-spine are negative. Left shoulder x-ray does reveal a comminuted and displaced fracture dislocation of the left humeral head and neck. Spoke to Vikas Izaguirre PA-c with ortho recommendations for transfer to higher level of care. I did speak to Sunil my call who refused transfer. Spoke to [facility], Dr. Carlos is accepting for ER to ER transfer. Discussed with my attending Dr. Cortez. - Radiology Data Radiology results: report reviewed, image reviewed 2 views of the left shoulder are obtained. Report reviewed in its entirety. Impression by Dr. Cochran shows comminuted and displaced anterior and inferior fracture dislocation of the humeral neck and head. CT brain and C-spine without contrast was obtained. Report is reviewed in its entirety. Impression by Dr. Cochran shows negative computed tomography scan of the cervical spine. Negative computed tomography scan of the brain. Disposition Clinical Impression: Comminuted fracture of left humerus, Dislocation of left shoulder joint Disposition: OTHER INSTITUTION NOT DEFINED Condition: Serious Referrals: Sara Christie DO [Primary Care Provider] - 1-2 days - Out of Hospital Transfer - Req. Specs Out of Hospital Transfer - Requested Specifics: Other Emergency Center ([facility])
--- NOTE | 2021-01-24 23:44 | XR ---
EXAMINATION TYPE: XR shoulder complete LT DATE OF EXAM: 01/24/2021 COMPARISON: NONE HISTORY: Pain TECHNIQUE: 2 views FINDINGS: There is comminuted fracture of the left humeral neck. There is dislocation inferiorly of t he humeral head. There is significant deformity and displacement of the fragments. There is at least 5 cm of displacement of the major fragments. The scapula is intact. AC joint is intact. IMPRESSION: There is comminuted and displaced anterior and inferior fracture dislocation of the humer al neck and head.
[2021-01-24] MEDS ORDERED: ONDANSETRON 4 MG/2 ML VIAL IVP STA (23:53)
[2021-01-24] MEDS ORDERED: HYDROmorphone 0.5 MG/0.5 ML SYRINGE IVP STA (23:53)
--- NOTE | 2021-01-24 23:55 | CT ---
EXAMINATION TYPE: CT brain cspine wo con DATE OF EXAM: 01/24/2021 COMPARISON: 08/01/2013 CT brain HISTORY: Fall CT DLP: 1483.7 mGycm Automated exposure control for dose reduction was used. Images of the brain and cervical spine obtained without contrast. Ventricles have normal size. There is no mass effect nor midline shift. There is no sign of intracran ial hemorrhage. The calvarium is intact. Cervical vertebra have normal alignment. Disc spaces are fairly normal. Posterior elements are intact . Facet joints are intact. There is no compression fracture. Prevertebral soft tissues are intact. I see no bony destructive process. IMPRESSION: Negative CT scan of the cervical spine. Negative CT scan of the brain.
[2021-01-25 01:05] VITALS: RESP 18
[2021-01-25] MEDS ORDERED: HYDROmorphone 1 MG/ML 1 ML SYRINGE IVP STA (01:10)
[2021-01-25] MEDS ORDERED: SODIUM CHLORIDE 0.9% 500 ML 500 ML IV ONE (01:22)
[2021-01-25 01:29] VITALS: BP 121/83; PULSE 80; TEMP 98.6
== END 2021-01-25 01:28 | disposition other institution (70) ==
LOC: EC 22:29
DX: S43.005A Unspecified dislocation of left shoulder joint, initial encounter (principal); S42.492A Other displaced fracture of lower end of left humerus, initial encounter for closed fracture; I10 Essential (primary) hypertension; E07.9 Disorder of thyroid, unspecified; M79.7 Fibromyalgia; F90.9 Attention-deficit hyperactivity disorder, unspecified type; F32.A Depression, unspecified; F12.90 Cannabis use, unspecified, uncomplicated; Z23 Encounter for immunization; Z88.1 Allergy status to other antibiotic agents; Z90.49 Acquired absence of other specified parts of digestive tract; W18.30XA Fall on same level, unspecified, initial encounter
CPT/HCPCS: 99284 ×2; 96374 ×2; 96375 ×2; 90471 ×2; 73030; 72125; 70450; 90715; J2405; J1170 ×2

== ENCOUNTER → 2021-09-18 | Outpatient (CLI) | payer OTHER ==
--- NOTE | 2021-09-18 10:22 | US ---
EXAMINATION TYPE: US abdomen complete DATE OF EXAM: 09/18/2021 COMPARISON: US 04/08/2016, CT CLINICAL HISTORY: R10.11 RUQ PAIN. Hx cholecystectomy, appendectomy. RUQ pain. TECHNIQUE: Multiple sonographic images of the abdomen are obtained. FINDINGS: EXAM MEASUREMENTS: Liver Length: 21.9 cm CBD: 0.62 cm Spleen: 10.5 cm Right Kidney: 13.1 x 5.5 x 4.7 cm Left Kidney: 11.4 x 4.5 x 5.3 cm MANAGER COSTING NOTES: Limited due to patient body habitus and overlying bowel gas. Pancreas: Limited due to gas. Liver: Appears enlarged, very coarse with increased attenuation. Gallbladder: Surgically absent. Evidence for sonographic Louis's sign: No CBD: Appears wnl Spleen: Appears wnl Right Kidney: Appears mildly enlarged. Left Kidney: No hydronephrosis or masses seen Upper IVC: Appears wnl Abd Aorta: Distal and iliacs are obscured. IMPRESSION: 1. Hepatomegaly with mild fatty infiltration of the liver.
== END | disposition home or self-care (01) ==
LOC: RADUSWWP 09:39
PROVIDERS: ATTEND Family Medicine
DX: K76.0 Fatty (change of) liver, not elsewhere classified (principal)
CPT/HCPCS: 76700

== ENCOUNTER 2021-09-25 20:23 | Emergency (ER) | payer MEDICARE, OTHER ==
[2021-09-25 21:13] VITALS: TEMP 98.4
[2021-09-25 22:27] LABS: Basophils # (A) 0.1 k/uL (0-0.2); Basophils % (A) 1 %; Eosinophils # (A) 0.4 k/uL (0-0.7); Eosinophils % (A) 3 %; HCT 43.3 % (34.0-46.0); HGB 14.3 gm/dL (11.4-16.0); Lymphocytes # (A) 3.9 k/uL (1.0-4.8); Lymphocytes % (A) 35 %; MCH 30.8 pg (25.0-35.0); MCV 93.5 fL (80.0-100.0); Mean Platelet Volume 7.4; Monocytes # (A) 0.5 k/uL (0-1.0); Monocytes % (A) 4 %; Neutrophils # (A) 6.2 k/uL (1.3-7.7); Neutrophils % (A) 56 %; Platelet Count 287 k/uL (150-450); RBC 4.63 m/uL (3.80-5.40); RDW 12.9 % (11.5-15.5); WBC 11.2 k/uL (3.8-10.6)
[2021-09-25 22:39] LABS: AST 31 U/L (14-36); African American GFR (CKD) >90 (>60 ml/min/1.73 sqM); Albumin 4.3 g/dL (3.5-5.0); Alkaline Phosphatase 57 U/L (38-126); Amylase 76 U/L (30-110); Anion Gap 14 mmol/L; Blood Urea Nitrogen 8 mg/dL (7-17); Calcium 10.4 mg/dL (8.4-10.2); Carbon Dioxide 19 mmol/L (22-30); Chloride 101 mmol/L (98-107); Glucose 285 mg/dL (74-99); Lipase 125 U/L (23-300); Non-African American GFR(CKD) >90 (>60 ml/min/1.73 sqM); Potassium 3.3 mmol/L (3.5-5.1); Sodium 134 mmol/L (137-145); Total Bilirubin 0.2 mg/dL (0.2-1.3); Total Protein 7.4 g/dL (6.3-8.2)
[2021-09-25 22:48] LABS: ALT 34 U/L (4-34)
[2021-09-25] MEDS ORDERED: KETOROLAC 15 MG/ML 1 ML VIAL IVP STA (22:53)
--- NOTE | 2021-09-25 22:54 | ED ---
Abdominal Pain HPI - General Chief Complaint: Abdominal Pain Stated Complaint: right sided flank pain Time Seen by Provider: 09/25/21 22:08 Source: patient Mode of arrival: ambulatory - History of Present Illness MD Complaint: flank pain Onset/Timin -: week(s) Location: R flank Radiation: none Migration to: no migration Severity: moderate Quality: aching, sharp Consistency: constant Improves With: nothing Worsens With: nothing - Related Data Home Medications Medication Instructions Recorded Confirmed Cholecalciferol [Vitamin D3 (125 125 mcg PO DAILY 10/03/21 10/03/21 Mcg = 5000 Iu)] DULoxetine HCL [Cymbalta] 30 mg PO BID 10/03/21 10/03/21 L.acidoph,Paracasei, B.lactis 1 cap PO DAILY 10/03/21 10/03/21 [Probiotic] Levothyroxine Sodium [Synthroid] 150 mcg PO DAILY 10/03/21 10/03/21 Omeprazole [PriLOSEC] 20 mg PO BID 10/03/21 10/03/21 Potassium Chloride ER [K-Dur 10] 10 meq PO DAILY 10/03/21 10/03/21 Pravastatin Sodium [Pravachol] 40 mg PO HS 10/03/21 10/03/21 SUMAtriptan succinate [Imitrex] 50 mg PO BID PRN 10/03/21 10/03/21 cloZAPine [Clozaril] 50 mg PO BID 10/03/21 10/03/21 diphenhydrAMINE [Benadryl] 25 mg PO BID 10/03/21 10/03/21 hydroCHLOROthiazide 25 mg PO DAILY 10/03/21 10/03/21 rOPINIRole HCL [Requip] 2 mg PO HS 10/03/21 10/03/21 tiZANidine HCL 2 mg PO BID PRN 10/03/21 10/03/21 traZODone HCL 200 mg PO HS 10/03/21 10/03/21 Previous Rx's Medication Instructions Recorded metFORMIN HCL [Glucophage] 500 mg PO BID #20 tab 09/26/21 Dicyclomine [Bentyl] 20 mg PO TID #30 tablet 10/03/21 Allergies Allergy/AdvReac Type Severity Reaction Status Date / Time lurasidone [From Latuda] AdvReac Swelling Verified 10/03/21 19:46 paroxetine HCl [From Paxil] AdvReac Nausea & Verified 10/03/21 19:46 Vomiting venlafaxine [From Effexor] AdvReac Nausea & Verified 10/03/21 19:46 Vomiting Review of Systems ROS Statement: Those systems with pertinent positive or pertinent negative responses have been documented in the HPI. ROS Other: All systems not noted in ROS Statement are negative. Constitutional: Denies: fever, chills Respiratory: Denies: cough, dyspnea Cardiovascular: Denies: chest pain, palpitations, edema Gastrointestinal: Reports: abdominal pain, constipation. Denies: nausea, vomiting, diarrhea, melena, hematochezia Genitourinary: Denies: dysuria, hematuria Musculoskeletal: Denies: back pain Skin: Denies: rash Neurological: Denies: headache, weakness Past Medical History Past Medical History: Fibromyalgia, Hypertension, Thyroid Disorder Additional Past Medical History / Comment(s): ADHD, abd pain,constipation with diarrhea,intestinal infection Dec/Jan 2015,rt kidney dehydrated Feb 2015, hypokalemia, leukopenia History of Any Multi-Drug Resistant Organisms: None Reported Past Surgical History: Appendectomy, Section, Cholecystectomy, Orthop edic Surgery Past Anesthesia/Blood Transfusion Reactions: No Reported Reaction Past Psychological History: ADD/ADHD, Depression Smoking Status: Current every day smoker Past Alcohol Use History: Occasional Past Drug Use History: Marijuana - Past Family History Mother Family Medical History: Cancer, Pulmonary Embolus Additional Family Medical History / Comment(s): leukemia Father Family Medical History: Diabetes Mellitus, Hypertension Additional Family Medical History / Comment(s): heart valve problems Brother(s) Additional Family Medical History / Comment(s): She has one brother with no major medical problems. Patient does not have any sisters. General Exam General appearance: alert, in no apparent distress Head exam: Present: atraumatic, normocephalic Eye exam: Present: normal appearance. Absent: scleral icterus, conjunctival injection ENT exam: Present: normal oropharynx Neck exam: Present: normal inspection Respiratory exam: Present: normal lung sounds bilaterally. Absent: respiratory distress, wheezes, rales, rhonchi, stridor Cardiovascular Exam: Present: regular rate, normal rhythm, tachycardia, normal heart sounds. Absent: systolic murmur, diastolic murmur, rubs, gallop GI/Abdominal exam: Present: soft. Absent: distended, tenderness, guarding, rebound, rigid, mass Extremities exam: Present: normal inspection, normal capillary refill. Absent: pedal edema, calf tenderness Back exam: Present: normal inspection. Absent: CVA tenderness (R), CVA tenderness (L) Neurological exam: Present: alert Skin exam: Present: warm, dry, intact, normal color. Absent: rash Course Vital Signs 09/25/21 09/26/21 21:10 00:16 Temperature 98.4 F Pulse Rate 125 H 100 Respiratory 19 16 Rate Blood Pressure 125/75 115/74 O2 Sat by Pulse 98 97 Oximetry Medical Decision Making - Lab Data Result diagrams: 09/25/21 22:19 09/25/21 22:19 Lab Results 09/25/21 09/25/21 09/25/21 Range/Units 22:19 22:19 22:46 WBC 11.2 H (3.8-10.6) k/uL RBC 4.63 (3.80-5.40) m/uL Hgb 14.3 (11.4-16.0) gm/dL Hct 43.3 (34.0-46.0) % MCV 93.5 (80.0-100.0) fL MCH 30.8 (25.0-35.0) pg MCHC 33.0 (31.0-37.0) g/dL RDW 12.9 (11.5-15.5) % Plt Count 287 (150-450) k/uL MPV 7.4 Neutrophils % 56 % Lymphocytes % 35 % Monocytes % 4 % Eosinophils % 3 % Basophils % 1 % Neutrophils # 6.2 (1.3-7.7) k/uL Lymphocytes # 3.9 (1.0-4.8) k/uL Monocytes # 0.5 (0-1.0) k/uL Eosinophils # 0.4 (0-0.7) k/uL Basophils # 0.1 (0-0.2) k/uL Sodium 134 L (137-145) mmol/L Potassium 3.3 L (3.5-5.1) mmol/L Chloride 101 (98-107) mmol/L Carbon Dioxide 19 L (22-30) mmol/L Anion Gap 14 mmol/L BUN 8 (7-17) mg/dL Creatinine 0.70 (0.52-1.04) mg/dL Est GFR (CKD-EPI)AfAm >90 (>60 ml/min/1.73 sqM) Est GFR (CKD-EPI)NonAf >90 (>60 ml/min/1.73 sqM) Glucose 285 H (74-99) mg/dL Calcium 10.4 H (8.4-10.2) mg/dL Total Bilirubin 0.2 (0.2-1.3) mg/dL AST 31 (14-36) U/L ALT 34 (4-34) U/L Alkaline Phosphatase 57 (38-126) U/L Total Protein 7.4 (6.3-8.2) g/dL Albumin 4.3 (3.5-5.0) g/dL Amylase 76 (30-110) U/L Lipase 125 (23-300) U/L Urine Color Light Yellow Urine Appearance Clear (Clear) Urine pH 5.5 (5.0-8.0) Ur Specific [place] 1.011 (1.001-1.035) Urine Protein Negative (Negative) Urine Glucose (UA) 3+ H (Negative) Urine Ketones 1+ H (Negative) Urine Blood Negative (Negative) Urine Nitrite Negative (Negative) Urine Bilirubin Negative (Negative) Urine Urobilinogen <2.0 (<2.0) mg/dL Ur Leukocyte Esterase Negative (Negative) Disposition Clinical Impression: Constipation, Abdominal pain Disposition: HOME SELF-CARE Condition: Good Instructions (If sedation given, give patient instructions): Constipation (DC), Abdominal Pain (ED) Prescriptions: metFORMIN HCL [Glucophage] 500 mg PO BID #20 tab Is patient prescribed a controlled substance at d/c from ED?: No Referrals: Sara Christie DO [Primary Care Provider] - 1-2 days
[2021-09-25 22:58] LABS: Appearance,Urine Clear (Clear); Bilirubin,Urine Negative (Negative); Blood,Urine Negative (Negative); Color,Urine Light Yellow; Glucose,Urine (UA) 3+ (Negative); Ketones,Urine 1+ (Negative); Leukocyte Esterase,Urine Negative (Negative); Nitrite,Urine Negative (Negative); PH, Urine 5.5 (5.0-8.0); Protein,Urine Negative (Negative); Specific Gravity,Urine 1.011 (1.001-1.035); Urobilinogen,Urine <2.0 mg/dL (<2.0)
--- NOTE | 2021-09-25 23:45 | CT ---
EXAMINATION TYPE: CT abdomen pelvis wo con DATE OF EXAM: 09/25/2021 COMPARISON: 02/02/2015 HISTORY: Right flank pain CT DLP: 904.4 mGycm Automated exposure control for dose reduction was used. Images obtained from the diaphragm to the floor the pelvis with no contrast. Lung bases are clear. No pleural effusion. Heart size is normal. No pericardial effusion. Liver splee n and stomach pancreas appear intact. The bile ducts are not dilated. There are clips from cholecyste ctomy. There is no adrenal mass. Kidneys have normal size and contour. No hydronephrosis. Ureters are not di lated. The bladder distends smoothly. No inguinal hernia. No free fluid in the pelvis. Uterus is ante verted. No evidence of pelvic mass. There are clips apparently from appendectomy. There is no mesenteric edema. No ascites or free air. No bowel obstruction. There is retained fecal material throughout the large bowel. The lumbar vertebra have normal alignment. Posterior element are intact. No compression fracture. Bon y pelvis is intact. The hip joints are intact. IMPRESSION: No acute abnormality in the abdomen and pelvis. There is some constipation. I do not suspect a mechan ical bowel obstruction.
[2021-09-26] MEDS ORDERED: PEG 3350 (236 GM/BTL) + LYTES 4,000 ML BOTTLE PO ONE (01:00)
[2021-09-26 03:32] VITALS: BP 115/74; PULSE 100; RESP 16
== END 2021-09-26 01:46 | disposition home or self-care (01) ==
LOC: EC 20:23
DX: K59.00 Constipation, unspecified (principal); I10 Essential (primary) hypertension; E07.9 Disorder of thyroid, unspecified; F32.A Depression, unspecified; F17.200 Nicotine dependence, unspecified, uncomplicated; F12.90 Cannabis use, unspecified, uncomplicated; Z88.8 Allergy status to other drugs, medicaments and biological substances; Z88.4 Allergy status to anesthetic agent; Z79.899 Other long term (current) drug therapy; Z79.890 Hormone replacement therapy
CPT/HCPCS: 36415; 80053; 82150; 83690; 85025; 81003; 74176; 99284; 96374; J1885

== ENCOUNTER 2021-10-03 18:45 | Emergency (ER) | payer MEDICARE, OTHER ==
[2021-10-03 18:48] VITALS: TEMP 98.1
--- NOTE | 2021-10-03 19:05 | ED ---
Abdominal Pain HPI - General Chief Complaint: Abdominal Pain Stated Complaint: rt side pain Time Seen by Provider: 10/03/21 18:50 Source: patient, family (), RN notes reviewed, old records reviewed Mode of arrival: ambulatory Limitations: no limitations - History of Present Illness Initial Comments: 45-year-old female presents to the emergency room ambulatory with her complaining of right upper quadrant abdominal pain for 2 weeks. Patient has been seen in the emergency room and by her primary care doctor for this same pain. She had an ultrasound done on September [address] scan on September 25 showing constipation. She states that she has seen her primary care doctor since being discharged and was told that they just needed to get her results before making a plan of care. Patient states that she continues to have the right upper quadrant abdominal pain and has developed diarrhea 3 times today. No vomiting, no fevers. Patient does take iron daily. She does have a history of appendectomy, partial hysterectomy, hypertension and fibromyalgia. She is a current smoker, denies any alcohol or drug use. MD Complaint: abdominal pain (ruq pain) -: week(s) (2) Location: RUQ Radiation: none Severity scale (1-10): 10 Consistency: constant Context: other (Recent diagnosis of constipation) Associated Symptoms: diarrhea - Related Data Patient : No (Partial hysterectomy) Home Medications Medication Instructions Recorded Confirmed Cholecalciferol [Vitamin D3 (125 125 mcg PO DAILY 10/03/21 10/03/21 Mcg = 5000 Iu)] DULoxetine HCL [Cymbalta] 30 mg PO BID 10/03/21 10/03/21 L.acidoph,Paracasei, B.lactis 1 cap PO DAILY 10/03/21 10/03/21 [Probiotic] Levothyroxine Sodium [Synthroid] 150 mcg PO DAILY 10/03/21 10/03/21 Omeprazole [PriLOSEC] 20 mg PO BID 10/03/21 10/03/21 Potassium Chloride ER [K-Dur 10] 10 meq PO DAILY 10/03/21 10/03/21 Pravastatin Sodium [Pravachol] 40 mg PO HS 10/03/21 10/03/21 SUMAtriptan succinate [Imitrex] 50 mg PO BID PRN 10/03/21 10/03/21 cloZAPine [Clozaril] 50 mg PO BID 10/03/21 10/03/21 diphenhydrAMINE [Benadryl] 25 mg PO BID 10/03/21 10/03/21 hydroCHLOROthiazide 25 mg PO DAILY 10/03/21 10/03/21 rOPINIRole HCL [Requip] 2 mg PO HS 10/03/21 10/03/21 tiZANidine HCL 2 mg PO BID PRN 10/03/21 10/03/21 traZODone HCL 200 mg PO HS 10/03/21 10/03/21 Previous Rx's Medication Instructions Recorded metFORMIN HCL [Glucophage] 500 mg PO BID #20 tab 09/26/21 Dicyclomine [Bentyl] 20 mg PO TID #30 tablet 10/03/21 Allergies Allergy/AdvReac Type Severity Reaction Status Date / Time lurasidone [From Latuda] AdvReac Swelling Verified 10/03/21 19:46 paroxetine HCl [From Paxil] AdvReac Nausea & Verified 10/03/21 19:46 Vomiting venlafaxine [From Effexor] AdvReac Nausea & Verified 10/03/21 19:46 Vomiting Review of Systems ROS Statement: Those systems with pertinent positive or pertinent negative responses have been documented in the HPI. ROS Other: All systems not noted in ROS Statement are negative. Past Medical History Past Medical History: Fibromyalgia, Hypertension, Thyroid Disorder Additional Past Medical History / Comment(s): ADHD, abd pain,constipation with diarrhea,intestinal infection Dec/Jan 2015,rt kidney dehydrated Feb 2015, hypokalemia, leukopenia History of Any Multi-Drug Resistant Organisms: None Reported Past Surgical History: Appendectomy, Section, Cholecystectomy, Orthopedic Surgery Past Anesthesia/Blood Transfusion Reactions: No Reported Reaction Past Psychological History: ADD/ADHD, Depression Smoking Status: Current every day smoker Past Alcohol Use History: Occasional Past Drug Use History: Marijuana - Past Family History Mother Family Medical History: Cancer, Pulmonary Embolus Additional Family Medical History / Comment(s): leukemia Father Family Medical History: Diabetes Mellitus, Hypertension Additional Family Medical History / Comment(s): heart valve problems Brother(s) Additional Family Medical History / Comment(s): She has one brother with no major medical problems. Patient does not have any sisters. General Exam Limitations: no limitations General appearance: alert, in no apparent distress Head exam: Present: atraumatic Eye exam: Absent: scleral icterus, conjunctival injection Neck exam: Present: full ROM. Absent: tenderness, meningismus Respiratory exam: Present: normal lung sounds bilaterally. Absent: respiratory distress, wheezes, rales, rhonchi, stridor, accessory muscle use GI/Abdominal exam: Present: soft, distended. Absent: tenderness, guarding, rebound, rigid Extremities exam: Present: normal capillary refill. Absent: pedal edema Back exam: Present: normal inspection. Absent: tenderness, CVA tenderness (R), CVA tenderness (L) Neurological exam: Present: alert, oriented X3, normal gait Psychiatric exam: Present: normal affect, normal mood Skin exam: Present: warm, dry, normal color. Absent: cyanosis, diaphoretic Course Vital Signs 10/03/21 10/03/21 18:46 20:44 Temperature 98.1 F 98.1 F Pulse Rate 99 102 H Respiratory 16 18 Rate Blood Pressure 122/88 120/82 O2 Sat by Pulse 97 97 Oximetry Medical Decision Making - Medical Decision Making Patient presents to emergency room with complaints of 2 weeks of right upper quadrant abdominal pain. Today she developed some diarrhea. She denies any fevers, no nausea or vomiting. She has been in the emergency room multiple times for this pain and seen her primary care doctor. Ultrasounds and CT scans have been negative. CT scan on September 25 showed some constipation. Labs at that time were unremarkable. She states that she did do a bottle of GoLYTELY a couple of days ago which did not change the pain. Abdominal x-ray today shows nonspecific bowel gas pattern without dilated loops of small bowel or large bowel. There is no evidence of organomegaly or pneumoperitoneum. Cholecystectomy clips are noted. Fecal material and gas are demonstrated throughout the colon and rectum. No cardiopulmonary process or intra-abdominal process noted. Patient was given mag citrate in the emergency room. She was given Bentyl prescription to trial. Encouraged to follow up with her primary care doctor next week. Case discussed with Dr. Smalls - Lab Data Lab Results 10/03/21 Range/Units 19:59 Urine Color Light Yellow Urine Appearance Clear (Clear) Urine pH 6.0 (5.0-8.0) Ur Specific [place] 1.006 (1.001-1.035) Urine Protein Negative (Negative) Urine Glucose (UA) Negative (Negative) Urine Ketones Negative (Negative) Urine Blood Negative (Negative) Urine Nitrite Negative (Negative) Urine Bilirubin Negative (Negative) Urine Urobilinogen <2.0 (<2.0) mg/dL Ur Leukocyte Esterase Negative (Negative) Disposition Clinical Impression: Abdominal pain Disposition: HOME SELF-CARE Condition: Good Instructions (If sedation given, give patient instructions): Abdominal Pain (ED) Additional Instructions: Please follow-up with your primary care doctor on Tuesday. Discuss following up with a petroleum geologist with your primary care doctor. Tylenol and/or Motrin as needed for pain. Return to emergency room with any new or concerning symptoms including fever or persistent nausea vomiting. Prescriptions: Dicyclomine [Bentyl] 20 mg PO TID #30 tablet Is patient prescribed a controlled substance at d/c from ED?: No Referrals: Sara Christie DO [Primary Care Provider] - 1-2 days Maricruz Avilez MD [STAFF PHYSICIAN] - 1-2 days Time of Disposition: 20:27
--- NOTE | 2021-10-03 19:33 | XR ---
EXAMINATION TYPE: XR abdomen acute w cxr DATE OF EXAM: 10/03/2021 7:21 PM INDICATION: Patient age:Female; 46 years old; Reason for study: Abdominal pain, concern for obstruction COMPARISON: Left shoulder radiographs 05/06/2021, CT abdomen pelvis 09/25/2021 TECHNIQUE: One frontal radiograph of the chest with upright and supine views of the abdomen and pelvi s. FINDINGS: No focal airspace consolidation. Cardiomediastinal silhouette is normal in appearance. No p neumothorax or pleural effusion. Osseous structures of the thorax are intact. The left shoulder demon strates fixation hardware is internally rotated. The bowel gas pattern is nonspecific without dilated loops of small or large bowel. There is no evide nce for organomegaly or pneumoperitoneum. Cholecystectomy clips are seen in the right upper quadrant . The osseous structures are intact. No abnormal calcifications are present. Fecal material and gas are demonstrated throughout the colon and rectum. IMPRESSION: No acute cardiopulmonary process. No acute intra-abdominal process..
[2021-10-03 20:07] LABS: Appearance,Urine Clear (Clear); Bilirubin,Urine Negative (Negative); Blood,Urine Negative (Negative); Color,Urine Light Yellow; Glucose,Urine (UA) Negative (Negative); Ketones,Urine Negative (Negative); Leukocyte Esterase,Urine Negative (Negative); Nitrite,Urine Negative (Negative); Protein,Urine Negative (Negative); Specific Gravity,Urine 1.006 (1.001-1.035); Urobilinogen,Urine <2.0 mg/dL (<2.0)
[2021-10-03] MEDS ORDERED: MAGNESIUM CITRATE 296 ML BOTTLE PO ONE (20:07)
[2021-10-03 20:45] VITALS: BP 120/82; PULSE 102; RESP 18
== END 2021-10-03 20:45 | disposition home or self-care (01) ==
LOC: EC 18:45
DX: R10.11 Right upper quadrant pain (principal); F17.200 Nicotine dependence, unspecified, uncomplicated; M79.7 Fibromyalgia; I10 Essential (primary) hypertension; E07.9 Disorder of thyroid, unspecified; Z90.49 Acquired absence of other specified parts of digestive tract; Z88.8 Allergy status to other drugs, medicaments and biological substances; Z79.899 Other long term (current) drug therapy; Z79.890 Hormone replacement therapy
CPT/HCPCS: 74022; 81003; 99284

== ENCOUNTER 2022-05-30 22:42 | Emergency (ER) | payer MEDICARE, OTHER ==
[2022-05-30] MEDS ORDERED: MORPHINE SULFATE 2 MG/ML SYRINGE IVP STA (23:13)
--- NOTE | 2022-05-30 23:13 | ED ---
Chest Pain HPI - General Chief Complaint: Chest Pain Stated Complaint: Chest Pain Time Seen by Provider: 05/30/22 22:48 Source: patient Mode of arrival: ambulatory Limitations: no limitations - History of Present Illness Initial Comments: 47-year-old female with past medical history of bipolar disorder, fibromyalgia who presents to the emergency department reporting right-sided chest pain. Reports that it is pleuritic in nature. States that it was sudden onset while she was watching TV around 9 PM. Admits to some shortness of breath. No fevers, chills or cough. No previous history of cardiac or pulmonary history. She did take an aspirin before coming into the emergency department. Denies history of DVT or PE. No lower extremity edema. Denies ripping or tearing sensation to her back. No alleviating, precipitating or modifying factors - Related Data Home Medications Medication Instructions Recorded Confirmed Omeprazole [PriLOSEC] 20 mg PO BID 10/03/21 06/01/22 Potassium Chloride ER [K-Dur 10] 10 meq PO DAILY 10/03/21 06/01/22 Pravastatin Sodium [Pravachol] 40 mg PO HS 10/03/21 06/01/22 SUMAtriptan succinate [Imitrex] 50 mg PO BID PRN 10/03/21 06/01/22 hydroCHLOROthiazide 25 mg PO DAILY 10/03/21 06/01/22 rOPINIRole HCL [Requip] 2 mg PO HS 10/03/21 06/01/22 tiZANidine HCL 2 mg PO BID PRN 10/03/21 06/01/22 Glycopyrrolate [Robinul] 1 mg PO DAILY 06/01/22 06/01/22 Previous Rx's Medication Instructions Recorded metFORMIN HCL [Glucophage] 500 mg PO BID #20 tab 09/26/21 Doxepin [SINEquan] 20 mg PO HS 30 Days #60 cap 06/04/22 Levothyroxine Sodium [Synthroid] 150 mcg PO DAILY 30 Days #30 tab 06/04/22 OLANZapine [ZyPREXA] 2.5 mg PO TID 30 Days #90 tab 06/04/22 traZODone HCL [Desyrel] 100 mg PO HS 30 Days #30 tab 06/04/22 Allergies Allergy/AdvReac Type Severity Reaction Status Date / Time lurasidone [From Latuda] AdvReac Swelling Verified 06/01/22 18:39 paroxetine HCl [From Paxil] AdvReac Nausea & Verified 06/01/22 18:39 Vomiting venlafaxine [From Effexor] AdvReac Nausea & Verified 06/01/22 18:39 Vomiting Review of Systems ROS Statement: Those systems with pertinent positive or pertinent negative responses have been documented in the HPI. ROS Other: All systems not noted in ROS Statement are negative. EKG Findings - EKG Comments: EKG Findings:: EKG demonstrates sinus rhythm with rate of 93. Pr interva 136. QRS 84. QTC 409. No acute ST segment elevations or depressions Past Medical History Past Medical History: Fibromyalgia, Hypertension, Thyroid Disorder Additional Past Medical History / Comment(s): ADHD, abd pain,constipation with diarrhea,intestinal infection Dec/Jan 2015,rt kidney dehydrated Feb 2015, hypokalemia, leukopenia History of Any Multi-Drug Resistant Organisms: None Reported Past Surgical History: Appendectomy, Section, Cholecystectomy, Orthopedic Surgery Past Anesthesia/Blood Transfusion Reactions: No Reported Reaction Past Psychological History: ADD/ADHD, Depression Smoking Status: Former smoker Past Alcohol Use History: Occasional Past Drug Use History: Marijuana - Past Family History Mother Family Medical History: Cancer, Pulmonary Embolus Additional Family Medical History / Comment(s): leukemia Father Family Medical History: Diabetes Mellitus, Hypertension Additional Family Medical History / Comment(s): heart valve problems Brother(s) Additional Family Medical History / Comment(s): She has one brother with no major medical problems. Patient does not have any sisters. General Exam Limitations: no limitations General appearance: alert, in no apparent distress Head exam: Present: atraumatic, normocephalic, normal inspection Eye exam: Present: normal appearance, PERRL, EOMI. Absent: scleral icterus, conjunctival injection, periorbital swelling ENT exam: Present: normal exam, mucous membranes moist Neck exam: Present: normal inspection. Absent: tenderness, meningismus, lymphadenopathy Respiratory exam: Present: normal lung sounds bilaterally. Absent: respiratory distress, wheezes, rales, rhonchi, stridor Cardiovascular Exam: Present: regular rate, normal rhythm, normal heart sounds. Absent: systolic murmur, diastolic murmur, rubs, gallop, clicks GI/Abdominal exam: Present: soft, normal bowel sounds. Absent: distended, t enderness, guarding, rebound, rigid Extremities exam: Present: normal inspection, full ROM, normal capillary refill. Absent: tenderness, pedal edema, joint swelling, calf tenderness Back exam: Present: normal inspection Neurological exam: Present: alert, oriented X3, CN II-XII intact Psychiatric exam: Present: normal affect, normal mood Skin exam: Present: warm, dry, intact, normal color. Absent: rash Course Vital Signs 05/30/22 05/31/22 22:44 00:56 Temperature 97.9 F 98.2 F Pulse Rate 96 87 Respiratory 18 16 Rate Blood Pressure 139/94 130/92 O2 Sat by Pulse 98 96 Oximetry Chest Pain MDM - MDM Was pt. sent in by a medical professional or institution (, NETO, KEY ENTRY OPERATOR, urgent care, hospital, or residential...) When possible be specific @ -No Did you speak to anyone other than the patient for history (EMS, parent, family, police, friend...)? What history was obtained from this source @ -No Did you review nursing and triage notes (agree or disagree)? Why? @ -I reviewed and agree with nursing and triage notes Were old charts reviewed (outside hosp., previous admission, EMS record, old EKG, old radiological studies, urgent care reports/EKG's, residential records)? Report findings @ -No old charts were reviewed Differential Diagnosis (chest pain, altered mental status, abdominal pain women, abdominal pain men, vaginal bleeding, weakness, fever, dyspnea, syncope, h eadache, dizziness, GI bleed, back pain, seizure, CVA, palpatations, mental health, musculoskeletal)? @ -acs, pleurisy, chest wall pain, nstemi, pe EKG interpreted by me (3pts min.). @ -yes X-rays interpreted by me (1pt min.). @ -yes CT interpreted by me (1pt min.). @ -None done U/S interpreted by me (1pt. min.). @ -None done What testing was considered but not performed or refused? (CT, X-rays, U/S, labs)? Why? @ -None What meds were considered but not given or refused? Why? @ -None Did you discuss the management of the patient with other professionals (professionals i.e. NETO Freeman, KEY ENTRY OPERATOR, lab, RT, psych nurse, social service manager, jeeper operator, teacher, electrical engineering drafting officer, wrapper caser)? Give summary @ -No Was smoking cessation discussed for >3mins.? @ -No Was critical care preformed (if so, how long)? @ -No Were there social determinants of health that impacted care today? How? (Homelessness, low income, unemployed, alcoholism, drug addiction, transportation, low edu. Level, literacy, decrease access to med. care, [facility], r ehab)? @ -No Was there de-escalation of care discussed even if they declined (Discuss DNR or withdrawal of care, Hospice)? DNR status @ -No What co-morbidities impacted this encounter? (DM, HTN, Smoking, COPD, CAD, Cancer, CVA, ARF, Chemo, Hep., AIDS, mental health diagnosis, sleep apnea, morbid obesity)? @ -None Was patient admitted / discharged? Hospital course, mention meds given and route, prescriptions, significant lab abnormalities, going to OR and other pertinent info. @ -The patient was placed in room 3. History and physical exams performed. Laboratory studies are conducted and chest x-rays performed. 12-lead EKG demonstrates a normal sinus rhythm. Results are discussed with the patient. Has achieved some relief of her pain with the pain medication. I did discuss diagnosis, differential treatment options. Patient will be discharged home at this time. She needs to follow-up with primary care. May need further testing through her primary care office to include Holter monitoring, echo and stress test. Return to the emergency room for any new or worsening symptoms. Patient was agreeable plan she was discharged home in stable condition Undiagnosed new problem with uncertain prognosis? @ -No Drug Therapy requiring intensive monitoring for toxicity (Heparin, Nitro, Insulin, Cardizem)? @ -No Were any procedures done? @ -No Diagnosis/symptom? @ -acute chest pain Acute, or Chronic, or Acute on Chronic? @ -acute Uncomplicated (without systemic symptoms) or Complicated (systemic symptoms)? @ -complicated Side effects of treatment? @ -No Exacerbation, Progression, or Severe Exacerbation? @ -No Poses a threat to life or bodily function? How? (Chest pain, [place], DC, pneumonia, PE, COPD, DKA, ARF, appy, cholecystitis, CVA, Diverticulitis, Homicidal, Suicidal, threat to staff... and all critical care pts) @ -No Disposition Clinical Impression: Chest pain Disposition: HOME SELF-CARE Condition: Stable Instructions (If sedation given, give patient instructions): Chest Pain (ED) Additional Instructions: Please follow-up with your primary care doctor and the cardiology office. We do recommend echo, Holter monitoring and a stress test. Return for any new or worsening symptoms Is patient prescribed a controlled substance at d/c from ED?: No Referrals: Sara Christie DO [Primary Care Provider] - 1-2 days [facility] [Provider Group] - 1-2 days Time of Disposition: 00:46
--- NOTE | 2022-05-30 23:43 | XR ---
EXAMINATION TYPE: XR chest 2V DATE OF EXAM: 05/30/2022 COMPARISON: 02/02/2015 TECHNIQUE: PA and lateral views submitted. HISTORY: Chest pain FINDINGS: The lungs are clear and there is no pneumothorax, pleural effusion, or focal pneumonia. Heart size normal and no overt failure. Osseous structures demonstrate hypertrophic and degenerative changes of the spine. Postsurgical change left humerus. Limited inspiration. Biapical pleural thickening. Surgic al clips in abdomen on lateral view. IMPRESSION: 1. No acute process.
[2022-05-30 23:53] LABS: Basophils % (A) 0 %; Eosinophils % (A) 0 %; HCT 42.4 % (34.0-46.0); HGB 14.3 gm/dL (11.4-16.0); Lymphocytes # (A) 3.2 k/uL (1.0-4.8); Lymphocytes % (A) 29 %; MCHC 33.7 g/dL (31.0-37.0); MCV 91.8 fL (80.0-100.0); Mean Platelet Volume 8.3; Monocytes # (A) 0.5 k/uL (0-1.0); Monocytes % (A) 4 %; Neutrophils # (A) 7.3 k/uL (1.3-7.7); Neutrophils % (A) 65 %; Platelet Count 317 k/uL (150-450); RBC 4.62 m/uL (3.80-5.40); RDW 13.6 % (11.5-15.5); WBC 11.1 k/uL (3.8-10.6)
[2022-05-31 00:07] LABS: Partial Thromboplastin Time 25.1 sec (22.0-30.0)
[2022-05-31 00:21] LABS: ALT 63 U/L (4-34); AST 131 U/L (14-36); African American GFR (CKD) >90 (>60 ml/min/1.73 sqM); Albumin 4.5 g/dL (3.5-5.0); Alkaline Phosphatase 76 U/L (38-126); Anion Gap 13 mmol/L; Blood Urea Nitrogen 5 mg/dL (7-17); Calcium 10.4 mg/dL (8.4-10.2); Carbon Dioxide 24 mmol/L (22-30); Chloride 102 mmol/L (98-107); Glucose 205 mg/dL (74-99); Lipase 114 U/L (23-300); Magnesium 1.9 mg/dL (1.6-2.3); Non-African American GFR(CKD) >90 (>60 ml/min/1.73 sqM); Potassium 3.8 mmol/L (3.5-5.1); Sodium 139 mmol/L (137-145); Total Bilirubin 0.8 mg/dL (0.2-1.3); Total Protein 7.9 g/dL (6.3-8.2)
[2022-05-31] MEDS ORDERED: ACET/COD 300 MG/30 MG STARTER PACK 6 TAB BTL PO STA (00:42)
[2022-05-31] MEDS ORDERED: IBUPROFEN 600 MG STARTER PACK 4 TAB BTL PO STA (00:45)
[2022-05-31 00:57] VITALS: BP 130/92; PULSE 87; RESP 16; TEMP 98.2
== END 2022-05-31 00:57 | disposition home or self-care (01) ==
LOC: EC 22:42
DX: R07.89 Other chest pain (principal); I10 Essential (primary) hypertension; F90.9 Attention-deficit hyperactivity disorder, unspecified type; F32.A Depression, unspecified; F12.90 Cannabis use, unspecified, uncomplicated; Z87.891 Personal history of nicotine dependence; Z79.899 Other long term (current) drug therapy; Z88.6 Allergy status to analgesic agent; Z88.8 Allergy status to other drugs, medicaments and biological substances
CPT/HCPCS: 36415; 93005; 85379; 80053; 83690; 83735; 84484; 85025; 85610; 85730; 71046; 99285; 96374; J2270

== ENCOUNTER 2022-06-01 01:06 | Inpatient (IN) | payer MEDICARE, MEDICAID ==
--- NOTE | 2022-06-01 02:37 | ED ---
Psych HPI - General Source: patient, family, RN notes reviewed Mode of arrival: ambulatory Limitations: no limitations <Merlin Medina - Last Filed: 06/01/22 03:37> <Man Contreras - Last Filed: 06/01/22 05:15> - General Chief Complaint: Psychiatric Symptoms Stated Complaint: Mental Health Time Seen by Provider: 06/01/22 01:29 - History of Present Illness Initial Comments: 47-year-old female presents emergency Department with chief complaint of depression, suicidal ideation. Patient states she has Depression has been worsening she states that she doesn't want to live anymore. She does see [facility] currently sees psychiatrist on Cymbalta though she's been out over the last few days. Denies illicit drug use denies alcohol abuse. (Merlin Medina) - Related Data Home Medications Medication Instructions Recorded Confirmed Cholecalciferol [Vitamin D3 (125 125 mcg PO DAILY 10/03/21 10/03/21 Mcg = 5000 Iu)] DULoxetine HCL [Cymbalta] 30 mg PO BID 10/03/21 10/03/21 L.acidoph,Paracasei, B.lactis 1 cap PO DAILY 10/03/21 10/03/21 [Probiotic] Levothyroxine Sodium [Synthroid] 150 mcg PO DAILY 10/03/21 10/03/21 Omeprazole [PriLOSEC] 20 mg PO BID 10/03/21 10/03/21 Potassium Chloride ER [K-Dur 10] 10 meq PO DAILY 10/03/21 10/03/21 Pravastatin Sodium [Pravachol] 40 mg PO HS 10/03/21 10/03/21 SUMAtriptan succinate [Imitrex] 50 mg PO BID PRN 10/03/21 10/03/21 cloZAPine [Clozaril] 50 mg PO BID 10/03/21 10/03/21 diphenhydrAMINE [Benadryl] 25 mg PO BID 10/03/21 10/03/21 hydroCHLOROthiazide 25 mg PO DAILY 10/03/21 10/03/21 rOPINIRole HCL [Requip] 2 mg PO HS 10/03/21 10/03/21 tiZANidine HCL 2 mg PO BID PRN 10/03/21 10/03/21 traZODone HCL 200 mg PO HS 10/03/21 10/03/21 Previous Rx's Medication Instructions Recorded metFORMIN HCL [Glucophage] 500 mg PO BID #20 tab 09/26/21 Dicyclomine [Bentyl] 20 mg PO TID #30 tablet 10/03/21 Allergies Allergy/AdvReac Type Severity Reaction Status Date / Time lurasidone [From Latuda] AdvReac Swelling Verified 06/01/22 01:11 paroxetine HCl [From Paxil] AdvReac Nausea & Verified 06/01/22 01:11 Vomiting venlafaxine [From Effexor] AdvReac Nausea & Verified 06/01/22 01:11 Vomiting Review of Systems ROS Other: All systems not noted in ROS Statement are negative. <Merlin Medina - Last Filed: 06/01/22 03:37> ROS Other: All systems not noted in ROS Statement are negative. <Man Contreras - Last Filed: 06/01/22 05:15> ROS Statement: Those systems with pertinent positive or pertinent negative responses have been documented in the HPI. Past Medical History Past Medical History: Fibromyalgia, Hypertension, Thyroid Disorder Additional Past Medical History / Comment(s): ADHD, abd pain,constipation with diarrhea,intestinal infection Dec/Jan 2015,rt kidney dehydrated Feb 2015, hypokalemia, leukopenia History of Any Multi-Drug Resistant Organisms: None Reported Past Surgical History: Appendectomy, Section, Cholecystectomy, Orthopedic Surgery Past Anesthesia/Blood Transfusion Reactions: No Reported Reaction Past Psychological History: ADD/ADHD, Depression Smoking Status: Former smoker Past Alcohol Use History: Occasional Past Drug Use History: Marijuana - Past Family History Mother Family Medical History: Cancer, Pulmonary Embolus Additional Family Medical History / Comment(s): leukemia Father Family Medical History: Diabetes Mellitus, Hypertension Additional Family Medical History / Comment(s): heart valve problems Brother(s) Additional Family Medical History / Comment(s): She has one brother with no major medical problems. Patient does not have any sisters. <Merlin Medina - Last Filed: 06/01/22 03:37> General Exam Limitations: no limitations General appearance: alert, in no apparent distress Head exam: Present: atraumatic, normocephalic, normal inspection Neck exam: Present: normal inspection. Absent: tenderness, meningismus, lymphadenopathy Respiratory exam: Present: normal lung sounds bilaterally. Absent: respiratory distress, wheezes, rales, rhonchi, stridor Cardiovascular Exam: Present: regular rate, normal rhythm, normal heart sounds. Absent: systolic murmur, diastolic murmur, rubs, gallop, clicks GI/Abdominal exam: Present: soft, normal bowel sounds. Absent: distended, tenderness, guarding, rebound, rigid Neurological exam: Present: alert Psychiatric exam: Present: depressed <Merlin Medina - Last Filed: 06/01/22 03:37> Course Vital Signs 06/01/22 01:07 Temperature 97.6 F Pulse Rate 84 Respiratory 18 Rate Blood Pressure 152/92 O2 Sat by Pulse 98 Oximetry Medical Decision Making <Merlin Medina - Last Filed: 06/01/22 03:37> <Man Contreras - Last Filed: 06/01/22 05:15> - Medical Decision Making Was pt. sent in by a medical professional or institution (, PA, TITLE SEARCHER, urgent care, hospital, or care home...) When possible be specific @ -No Did you speak to anyone other than the patient for history (EMS, parent, family, police, friend...)? What history was obtained from this source @ -No Did you review nursing and triage notes (agree or disagree)? Why? @ -I reviewed and agree with nursing and triage notes Were old charts reviewed (outside hosp., previous admission, EMS record, old EKG, old radiological studies, urgent care reports/EKG's, care home records)? Report findings @ -No old charts were reviewed Differential Diagnosis (chest pain, altered mental status, abdominal pain women, abdominal pain men, vaginal bleeding, weakness, fever, dyspnea, syncope, headache, dizziness, GI bleed, back pain, seizure, CVA, palpatations, mental health, musculoskeletal)? @ -Depression, suicidal ideation, bipolar sec, schizophrenia, PTSD, anxiety, this list is not CONCLUSIVE EKG interpreted by me (3pts min.). @ -None X-rays interpreted by me (1pt min.). @ -None done CT interpreted by me (1pt min.). @ -None done U/S interpreted by me (1pt. min.). @ -None done What testing was considered but not performed or refused? (CT, X-rays, U/S, labs)? Why? @ -None What meds were considered but not given or refused? Why? @ -None Did you discuss the management of the patient with other professionals (professionals i.e. , PA, TITLE SEARCHER, lab, RT, psych nurse, pediatric social worker, lift supervisor, teacher, agricultural technical officer, foster care case manager)? Give summary @ -EPS evaluated the patient's case discussed with psychiatrist recommends inpatient treatment. Was smoking cessation discussed for >3mins.? @ -No Was critical care preformed (if so, how long)? @ -No Were there social determinants of health that impacted care today? How? (Homelessness, low income, unemployed, alcoholism, drug addiction, transportation, low edu. Level, literacy, decrease access to med. care, snf, rehab)? @ -No Was there de-escalation of care discussed even if they declined (Discuss DNR or withdrawal of care, Hospice)? DNR status @ -No What co-morbidities impacted this encounter? (DM, HTN, Smoking, COPD, CAD, Cancer, CVA, ARF, Chemo, Hep., AIDS, mental health diagnosis, sleep apnea, morbid obesity)? @ -Depression Was patient admitted / discharged? Hospital course, mention meds given and route, prescriptions, significant lab abnormalities, going to OR and other pertinent info. @ -Admitted to [facility] for psychiatric treatment Undiagnosed new problem with uncertain prognosis? @ -No Drug Therapy requiring intensive monitoring for toxicity (Heparin, Nitro, Insulin, Cardizem)? @ -No Were any procedures done? @ -No Diagnosis/symptom? @ -Depression, suicidal ideation Acute, or Chronic, or Acute on Chronic? @ -Acute Uncomplicated (without systemic symptoms) or Complicated (systemic symptoms)? @ -Uncomplicated Side effects of treatment? @ -No Exacerbation, Progression, or Severe Exacerbation? @ -No Poses a threat to life or bodily function? How? (Chest pain, USA, ID, pneumonia, PE, COPD, DKA, ARF, appy, cholecystitis, CVA, Diverticulitis, Homicidal, Suicidal, threat to staff... and all critical care pts) @ -No (Merlin Medina) Patient admitted to psychiatric unit. (Man Contreras) - Lab Data Lab Results 06/01/22 06/01/22 Range/Units 02:04 03:42 Urine Opiates Screen Not Detected (NotDetected) Ur Oxycodone Screen Not Detected (NotDetected) Urine Methadone Screen Not Detected (NotDetected) Ur Propoxyphene Screen Not Detected (NotDetected) Ur Barbiturates Screen Not Detected (NotDetected) U Tricyclic Antidepress Not Detected (NotDetected) Ur Phencyclidine Scrn Not Detected (NotDetected) Ur Amphetamines Screen Not Detected (NotDetected) U Methamphetamines Scrn Not Detected (NotDetected) U Benzodiazepines Scrn Not Detected (NotDetected) Urine Cocaine Screen Not Detected (NotDetected) U Marijuana (THC) Screen Not Detected (NotDetected) Coronavirus (PCR) Not Detected (Not Detectd) Disposition Time of Disposition: 03:38 <Merlin Medina M - Last Filed: 06/01/22 03:37> <Man Contreras - Last Filed: 06/01/22 05:15> Clinical Impression: Depression, Suicidal thoughts Disposition: TRANSFER TO PSYCH HOSP/UNIT
[2022-06-01 02:53] LABS: Amphetamine Screen,Urine Not Detected (NotDetected); Barbiturate Screen,Urine Not Detected (NotDetected); Benzodiazepines Screen,Urine Not Detected (NotDetected); Cocaine Screen,Urine Not Detected (NotDetected); Methadone Screen, Urine Not Detected (NotDetected); Opiate Screen,Urine Not Detected (NotDetected); Oxycodone Screen, Urine Not Detected (NotDetected); Phencyclidine Screen,Urine Not Detected (NotDetected); Tricyclic Antidepressant,Urine Not Detected (NotDetected); Urn Cannabinoid Scrn Not Detected (NotDetected)
[2022-06-01] MEDS ORDERED: MAG HYDROX/AL HYDROX/SIMETH 30 ML CUP PO PRN (04:58)
[2022-06-01] MEDS ORDERED: MAGNESIUM HYDROXIDE 2,400 MG/10 ML CUP PO PRN (04:58)
[2022-06-01] MEDS ORDERED: LORazepam 2 MG/ML INJ IM PRN (05:04)
[2022-06-01 05:30] LABS: Appearance,Urine Clear (Clear); Bilirubin,Urine Negative (Negative); Blood,Urine Negative (Negative); Color,Urine Yellow; Glucose,Urine (UA) Negative (Negative); Ketones,Urine Negative (Negative); Leukocyte Esterase,Urine Negative (Negative); Nitrite,Urine Negative (Negative); Protein,Urine Negative (Negative); Specific Gravity,Urine 1.011 (1.001-1.035); Urobilinogen,Urine <2.0 mg/dL (<2.0)
[2022-06-01 07:56] LABS: Glucose,Whole Blood 199 mg/dL (70-110)
[2022-06-01] MEDS: NICOTINE 14MG/24HR PATCH TRANSDERM SCH (08:01)
[2022-06-01 11:35] LABS: Basophils % (A) 0 %; Eosinophils % (A) 0 %; HCT 44.3 % (34.0-46.0); HGB 14.8 gm/dL (11.4-16.0); Lymphocytes # (A) 3.1 k/uL (1.0-4.8); Lymphocytes % (A) 31 %; MCH 31.2 pg (25.0-35.0); MCHC 33.5 g/dL (31.0-37.0); MCV 93.2 fL (80.0-100.0); Mean Platelet Volume 8.1; Monocytes # (A) 0.5 k/uL (0-1.0); Monocytes % (A) 5 %; Neutrophils % (A) 61 %; Platelet Count 320 k/uL (150-450); RBC 4.75 m/uL (3.80-5.40); RDW 13.4 % (11.5-15.5); WBC 9.8 k/uL (3.8-10.6)
[2022-06-01 11:44] LABS: ALT 64 U/L (4-34); AST 116 U/L (14-36); African American GFR (CKD) 88 (>60 ml/min/1.73 sqM); Albumin 4.6 g/dL (3.5-5.0); Alkaline Phosphatase 83 U/L (38-126); Anion Gap 12 mmol/L; Bilirubin, Delta 0.4 mg/dL (0.0-0.2); Bilirubin,Unconjugated 0.4 mg/dL (0.0-1.1); Blood Urea Nitrogen 6 mg/dL (7-17); Calcium 10.5 mg/dL (8.4-10.2); Carbon Dioxide 30 mmol/L (22-30); Chloride 100 mmol/L (98-107); Glucose 212 mg/dL (74-99); Non-African American GFR(CKD) 76 (>60 ml/min/1.73 sqM); Potassium 3.7 mmol/L (3.5-5.1); Sodium 142 mmol/L (137-145); Total Bilirubin 0.8 mg/dL (0.2-1.3); Total Protein 8.2 g/dL (6.3-8.2)
[2022-06-01] MEDS: ACETAMINOPHEN TAB 325 MG TAB PO PRN (12:57)
[2022-06-01] MEDS: LORazepam 1 MG TAB PO PRN ×2 (12:57→21:53)
[2022-06-01 12:59] LABS: Glucose,Whole Blood 186 mg/dL (70-110)
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
[2022-06-01] MEDS: OLANZapine 2.5 MG TAB PO SCH ×2 (16:26→20:19)
[2022-06-01 17:51] LABS: Chol/HDL Ratio 9.54 Ratio
[2022-06-01 18:19] LABS: Glucose,Whole Blood 214 mg/dL (70-110)
--- NOTE | 2022-06-01 18:50 | P.CONS ---
History of Present Illness - Reason for Consult Consult date: 06/01/22 Medical management Requesting physician: Slim Bazan - Chief Complaint Suicidal ideation - History of Present Illness This is a 47-year-old patient, follows with . Chronic stable medical conditions include fibromyalgia, hypertension, hypothyroid, ADHD depression. Patient presented to ER having suicidal ideations. Patient lost her father about a week ago. Her depression has been getting worse over the week. Feeling low. Increased sleepiness decreased energy. Poor hygiene. Apparently she admitted to plan to slice her throat. But did not pursue this. She attempted the same about 10 years ago. Bowel movements are fine. Has reflux. She has put on weight the last few months. Tired. Review of systems: GEN.: Tired, weight change EYES: None HEENT: None NECK: None RESPIRATORY: None CARDIOVASCULAR: None GASTROINTESTINAL: None GENITOURINARY: None MUSCULOSKELETAL: None LYMPHATICS: None HEMATOLOGICAL: None PSYCHIATRY: Depressed NEUROLOGICAL: None Past medical history to include: Fibromyalgia, hypertension, hypothyroid, ADHD, depression Social history: Patient be smoking half a pack a day since 1992. Has stopped for last 2 months. Also does beeping. Alcohol occasionally. Physical examination: VITAL SIGNS: 97.7, 85, 15, 132/88, 97% room air GENERAL: BMI 39, sitting up in a chair depressed. EYES: Pupils equal. Conjunctiva normal. HEENT: External appearance of nose and ears normal, oral cavity grossly normal. NECK: JVD not raised; masses not palpable. HEART: First and second heart sounds are normal; no edema. LUNGS: Respiratory rate normal; clear to auscultation. ABDOMEN: Soft, nontender, liver spleen not palpable, no masses palpable. PSYCH: [Alert and oriented x3; mood and affect depressed l. MUSCULOSKELETAL:No Clubbing/cyanosis;muscles-grossly intact NEUROLOGICAL: Cranial nerves grossly intact; no facial asymmetry, power and sensation grossly intact. LYMPHATICS: No lymph nodes palpable in the axilla and neck INVESTIGATIONS, reviewed in the clinical context: White count 9.8 hemoglobin 14.8 platelets 328 potassium 3.7 creatinine 0.91 AST 116 ALT 64 LDL 195 TSH greater than 100 COVID-19: Not detected Assessment and plan: -Major depressive disorder, recurrent severe Follow-up with psychiatry -Posttraumatic stress disorder, consider cluster B personality disorder. -Obesity BMI 39 Discussed weight loss -Hypothyroid. Appears patient not taking her medications. Greatly elevated TSH. Resume Synthroid 150 g -GERD Prilosec 20 mg twice a day -Hyperlipidemia, uncontrolled Pravachol 40 mg daily at bedtime -Diabetes mellitus type 2 on oral hypoglycemic Glucophage 5 mg twice a day -Restless legs syndrome Requip 2 mg daily at bedtime Home medications not been verified. I called the pharmacy to do the same. We'll then order the medications. Follow Accu-Cheks. Discussed with the patient. Thank you Dr. Bazan Past Medical History Past Medical History: Fibromyalgia, Hypertension, Thyroid Disorder Additional Past Medical History / Comment(s): ADHD, abd pain,constipation with diarrhea,intestinal infection Dec/Jan 2015,rt kidney dehydrated Feb 2015, hypokalemia, leukopenia History of Any Multi-Drug Resistant Organisms: None Reported Past Surgical History: Appendectomy, Section, Cholecystectomy, Orthopedic Surgery Past Anesthesia/Blood Transfusion Reactions: No Reported Reaction Past Psychological History: ADD/ADHD, Depression Smoking Status: Former smoker, Vaper Past Alcohol Use History: Occasional Additional Past Alcohol Use History / Comment(s): started smoking ppd Past Drug Use History: Marijuana - Past Family History Mother Family Medical History: Cancer, Pulmonary Embolus Additional Family Medical History / Comment(s): leukemia Father Family Medical History: Diabetes Mellitus, Hypertension Additional Family Medical History / Comment(s): heart valve problems Brother(s) Additional Family Medical History / Comment(s): She has one brother with no major medical problems. Patient does not have any sisters. Medications and Allergies Home Medications Medication Instructions Recorded Confirmed Type metFORMIN HCL [Glucophage] 500 mg PO BID #20 tab 09/26/21 10/03/21 Rx Cholecalciferol [Vitamin D3 (125 125 mcg PO DAILY 10/03/21 10/03/21 History Mcg = 5000 Iu)] DULoxetine HCL [Cymbalta] 30 mg PO BID 10/03/21 10/03/21 History Dicyclomine [Bentyl] 20 mg PO TID #30 tablet 10/03/21 Rx L.acidoph,Paracasei, B.lactis 1 cap PO DAILY 10/03/21 10/03/21 History [Probiotic] Levothyroxine Sodium [Synthroid] 150 mcg PO DAILY 10/03/21 10/03/21 History Omeprazole [PriLOSEC] 20 mg PO BID 10/03/21 10/03/21 History Potassium Chloride ER [K-Dur 10] 10 meq PO DAILY 10/03/21 10/03/21 History Pravastatin Sodium [Pravachol] 40 mg PO HS 10/03/21 10/03/21 History SUMAtriptan succinate [Imitrex] 50 mg PO BID PRN 10/03/21 10/03/21 History cloZAPine [Clozaril] 50 mg PO BID 10/03/21 10/03/21 History diphenhydrAMINE [Benadryl] 25 mg PO BID 10/03/21 10/03/21 History hydroCHLOROthiazide 25 mg PO DAILY 10/03/21 10/03/21 History rOPINIRole HCL [Requip] 2 mg PO HS 10/03/21 10/03/21 History tiZANidine HCL 2 mg PO BID PRN 10/03/21 10/03/21 History traZODone HCL 200 mg PO HS 10/03/21 10/03/21 History Allergies Allergy/AdvReac Type Severity Reaction Status Date / Time lurasidone [From Latuda] AdvReac Swelling Verified 06/01/22 18:39 paroxetine HCl [From Paxil] AdvReac Nausea & Verified 06/01/22 18:39 Vomiting venlafaxine [From Effexor] AdvReac Nausea & Verified 06/01/22 18:39 Vomiting Physical Exam Vitals: Vital Signs Temp Pulse Pulse Resp BP BP Pulse Ox 06/01/22 05:53 97.7 F 85 15 132/88 97 06/01/22 01:07 97.6 F 84 18 152/92 98 Intake and Output 06/01/22 06/01/22 06/01/22 06:59 14:59 22:59 Other: Weight 99.96 kg Results CBC & Chem 7: 06/01/22 10:54 06/01/22 10:54 Labs: Abnormal Lab Results - Last 24 Hours (Table) 06/01/22 06/01/22 06/01/22 Range/Units 07:53 10:54 10:54 BUN 6 L (7-17) mg/dL Glucose 212 H (74-99) mg/dL POC Glucose (mg/dL) 199 H (70-110) mg/dL Hemoglobin A1c 8.8 H (0.0-6.0) % Calcium 10.5 H (8.4-10.2) mg/dL Delta Bilirubin 0.4 H (0.0-0.2) mg/dL AST 116 H (14-36) U/L ALT 64 H (4-34) U/L Triglycerides 585.00 H (0.00-149.00) mg/dL Cholesterol 309.00 H (0.00-200.00) mg/dL LDL Cholesterol Direct 195.00 H (0.00-129.00) mg/dL HDL Cholesterol 32.40 L (40.00-60.00) mg/dL TSH >100.000 H (0.465-4.680) mIU/L 06/01/22 06/01/22 Range/Units 12:55 18:18 BUN (7-17) mg/dL Glucose (74-99) mg/dL POC Glucose (mg/dL) 186 H 214 H (70-110) mg/dL Hemoglobin A1c (0.0-6.0) % Calcium (8.4-10.2) mg/dL Delta Bilirubin (0.0-0.2) mg/dL AST (14-36) U/L ALT (4-34) U/L Triglycerides (0.00-149.00) mg/dL Cholesterol (0.00-200.00) mg/dL LDL Cholesterol Direct (0.00-129.00) mg/dL HDL Cholesterol (40.00-60.00) mg/dL TSH (0.465-4.680) mIU/L
[2022-06-01] MEDS ORDERED: DEXTROSE 50% SYRINGE 50 ML IVP PRN ×2 (18:51)
[2022-06-01] MEDS ORDERED: tiZANidine 4 MG TAB PO PRN (18:55)
[2022-06-01] MEDS: INSULIN ASPART (NovoLOG) 100 UNIT/ML VIAL SQ SCH (19:32)
[2022-06-01] MEDS: LEVOTHYROXINE 75 MCG TAB PO SCH (19:34)
[2022-06-01 20:11] LABS: Glucose,Whole Blood 191 mg/dL (70-110)
[2022-06-01] MEDS: PRAVASTATIN SODIUM 40 MG TAB PO SCH (20:19)
[2022-06-01] MEDS: metFORMIN 500 MG TAB PO SCH (20:19)
[2022-06-01] MEDS: PANTOPRAZOLE 40 MG TABLET PO SCH (20:19)
[2022-06-01] MEDS ORDERED: DOXEPIN 10 MG CAP PO SCH (21:00)
[2022-06-02] MEDS: LEVOTHYROXINE 75 MCG TAB PO SCH (05:44)
[2022-06-02 07:24] LABS: Clozapine (Clozaril) 151 ng/mL (200-700); Norclozapine 108 ng/mL (200-700)
[2022-06-02 07:47] LABS: Glucose,Whole Blood 144 mg/dL (70-110)
[2022-06-02] MEDS: INSULIN ASPART (NovoLOG) 100 UNIT/ML VIAL SQ SCH ×3 (08:16→17:49)
[2022-06-02] MEDS: GLYCOPYRROLATE 1 MG TAB PO SCH (08:31)
[2022-06-02] MEDS: OLANZapine 2.5 MG TAB PO SCH ×3 (08:31→20:37)
[2022-06-02] MEDS: NICOTINE 14MG/24HR PATCH TRANSDERM SCH (08:31)
[2022-06-02] MEDS: metFORMIN 500 MG TAB PO SCH ×2 (08:31→17:49)
[2022-06-02] MEDS: PANTOPRAZOLE 40 MG TABLET PO SCH ×2 (08:31→20:37)
[2022-06-02] MEDS: LORazepam 1 MG TAB PO PRN ×3 (08:32→20:38)
--- NOTE | 2022-06-02 10:57 | P.PN ---
Progress Note - Text Progress Note Date: 06/02/22 Interval History: Patient was seen resting in bed and was directable and agreeable to speak with freelance writer in her room. Currently, the patient is not reporting any suicidal or homicidal ideation, intention, and/or plan. She did however note that she was suicidal during goal setting this morning. She reports no auditory or visual hallucinations. She does however rate her depression as 7 out of 10 in severity with 10 being very severe. The patient reports that she just feels like crying and has no motivation to get out of bed. The patient reports that she is still feeling suicidal regarding passing of her father a week ago. She otherwise reports no issues regarding her sleep or her appetite. She denies any medical issues or concerns. She has been with her medication and reports mild nausea as a side effect. Mental Status Exam: General Appearance: Patient appears to be stated age is alert, directable, and cooperative. Behavior: Patient is calmly seated without any agitated behavior. Speech: Patient's speech is fluent and nonpressured. Monotone and nonspo ntaneous. Mood/Affect: Mood is "very sad," affect is congruent and withdrawn Suicidality/Homicidality: Patient denies having any suicidal or homicidal ideation intent or plan. Perceptions: Patient denies any visual hallucinations and denies any auditory hallucinations Though content/process: There is no evidence of any delusional thought content and thought process is linear and goal-directed. Memory and concentration: AOX3, grossly intact for the purposes of this session Judgment and insight: Improving mildly Vital Signs Temp 97.5 F L 06/02/22 06:20 Pulse 82 06/02/22 06:20 Resp 14 06/02/22 06:20 BP 108/66 06/02/22 06:20 Pulse Ox 97 06/01/22 05:53 FiO2 Assessment Major depressive disorder, recurrent, severe Posttraumatic stress disorder Rule out cluster B personality disorder Plan: -Patient continues to meet criteria for inpatient psychiatric admission for symptom stabilization and safety. Patient has signed adult voluntary form and medication consent and was placed in patient's chart. -Medications: Increase doxepin to 20 mg by mouth at bedtime for depression/anxiety/insomnia Continue Zyprexa 2.5 mg by mouth 3 times a day for treatment resistant depression -When necessary Ativan for agitation/aggression. -SW on board for discharge planning. Encouraged the patient to participate in milieu.
[2022-06-02 12:30] LABS: Glucose,Whole Blood 220 mg/dL (70-110)
[2022-06-02 17:42] LABS: Glucose,Whole Blood 159 mg/dL (70-110)
[2022-06-02 20:19] LABS: Glucose,Whole Blood 210 mg/dL (70-110)
[2022-06-02] MEDS: PRAVASTATIN SODIUM 40 MG TAB PO SCH (20:37)
[2022-06-02] MEDS: DOXEPIN 10 MG CAP PO SCH (20:37)
[2022-06-02] MEDS: ACETAMINOPHEN TAB 325 MG TAB PO PRN (23:20)
[2022-06-03] MEDS: LORazepam 1 MG TAB PO PRN ×3 (01:45→22:21)
[2022-06-03] MEDS: LEVOTHYROXINE 75 MCG TAB PO SCH (06:15)
[2022-06-03] MEDS: SUMAtriptan succinate 50 MG TAB PO PRN (06:44)
[2022-06-03 07:52] LABS: Glucose,Whole Blood 158 mg/dL (70-110)
[2022-06-03] MEDS: INSULIN ASPART (NovoLOG) 100 UNIT/ML VIAL SQ SCH ×3 (08:22→17:45)
[2022-06-03] MEDS: GLYCOPYRROLATE 1 MG TAB PO SCH (08:23)
[2022-06-03] MEDS: metFORMIN 500 MG TAB PO SCH ×2 (08:23→17:50)
[2022-06-03] MEDS: OLANZapine 2.5 MG TAB PO SCH ×3 (08:23→20:32)
[2022-06-03] MEDS: NICOTINE 14MG/24HR PATCH TRANSDERM SCH (08:24)
[2022-06-03] MEDS: PANTOPRAZOLE 40 MG TABLET PO SCH ×2 (09:21→20:32)
--- NOTE | 2022-06-03 11:20 | P.PN ---
Progress Note - Text Progress Note Date: 06/03/22 Interval History: Patient was seen resting in bed and was directable and agreeable to speak with junior technical writer in her room. Currently, the patient continues to report 7 out of 10 in depression attending groups. However, the patient any suicidal or homicidal ideation, intention or plan. She is not reporting any auditory or visual hallucinations and denies any paranoia or other delusions. She has been adherent with her medication is not reporting any significant side effects at this time. The patient has restarted her Synthroid. She is not reporting any hypothyroid symptoms aside from low energy and depression. She was encouraged to continue taking her medications and especially her Synthroid. She does report that she has difficulty with sleep. Mental Status Exam: General Appearance: Patient appears to be stated age is alert, directable, and cooperative. Behavior: Patient is calmly seated without any agitated behavior. Speech: Patient's speech is fluent and nonpressured. Monotone and nonspontaneous. Mood/Affect: Mood is "just depressed." affect is constricted. Suicidality/Homicidality: Patient denies having any suicidal or homicidal ideation intent or plan. Perceptions: Patient denies any visual hallucinations and denies any auditory hallucinations Though content/process: There is no evidence of any delusional thought content and thought process is linear and goal-directed. Memory and concentration: AOX3, grossly intact for the purposes of this session Judgment and insight: Improving mildly Vital Signs Temp 97.8 F 06/03/22 06:37 Pulse 82 06/03/22 06:37 Resp 18 06/03/22 06:37 BP 112/68 06/03/22 06:37 Pulse Ox 96 06/03/22 06:37 FiO2 Laboratory Results - Last 24 Hours 06/02/22 06/02/22 06/02/22 12:29 17:39 20:17 POC Glucose (mg/dL) 220 H 159 H 210 H POC Glu [employer] Special Items ID Bridget Rizzo Desiree Howard, Erin 06/03/22 07:50 POC Glucose (mg/dL) 158 H POC Glu [employer] Special Items ID Emy Rizzo Assessment Major depressive disorder, recurrent, severe Posttraumatic stress disorder Rule out cluster B personality disorder Plan: -Patient continues to meet criteria for inpatient psychiatric admission for symptom stabilization and safety. Patient has signed adult voluntary form and medication consent and was placed in patient's chart. -Medications: Trazodone 100 daily at bedtime for insomnia Continue doxepin 20 mg by mouth at bedtime for depression/anxiety/insomnia Continue Zyprexa 2.5 mg by mouth 3 times a day for treatment resistant depression -When necessary Ativan for agitation/aggression. -SW on board for discharge planning. Encouraged the patient to participate in milieu.
[2022-06-03 12:39] LABS: Glucose,Whole Blood 139 mg/dL (70-110)
[2022-06-03 17:36] LABS: Glucose,Whole Blood 179 mg/dL (70-110)
[2022-06-03] MEDS ORDERED: LEVOTHYROXINE 100 MCG TAB PO STA (18:05)
[2022-06-03 20:07] LABS: Glucose,Whole Blood 172 mg/dL (70-110)
[2022-06-03] MEDS: DOXEPIN 10 MG CAP PO SCH (20:32)
[2022-06-03] MEDS: PRAVASTATIN SODIUM 40 MG TAB PO SCH (20:33)
[2022-06-03] MEDS ORDERED: traZODone HCL 100 MG TAB PO SCH (21:00)
[2022-06-04] MEDS: SUMAtriptan succinate 50 MG TAB PO PRN (00:46)
[2022-06-04 01:03] VITALS: BP 117/81; PULSE 91; RESP 16; TEMP 98.6
[2022-06-04] MEDS ORDERED: LEVOTHYROXINE 75 MCG TAB PO SCH (06:30)
[2022-06-04] MEDS: LEVOTHYROXINE 75 MCG TAB PO SCH (06:36)
[2022-06-04] MEDS: INSULIN ASPART (NovoLOG) 100 UNIT/ML VIAL SQ SCH (08:30)
[2022-06-04] MEDS: OLANZapine 2.5 MG TAB PO SCH (08:33)
[2022-06-04] MEDS: PANTOPRAZOLE 40 MG TABLET PO SCH (08:33)
[2022-06-04] MEDS: GLYCOPYRROLATE 1 MG TAB PO SCH (08:33)
[2022-06-04] MEDS: metFORMIN 500 MG TAB PO SCH (08:33)
[2022-06-04] MEDS: NICOTINE 14MG/24HR PATCH TRANSDERM SCH (08:34)
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
== END 2022-06-04 12:25 | disposition home or self-care (01) | DRG 885 ==
LOC: EC 01:06 → 3MHU 04:53
PROVIDERS: ADMIT Psychiatry & Neurology Psychiatry; ATTEND Psychiatry & Neurology Psychiatry
DX: F33.2 Major depressive disorder, recurrent severe without psychotic features (principal); R45.851 Suicidal ideations; E11.649 Type 2 diabetes mellitus with hypoglycemia without coma; Z28.310 Unvaccinated for COVID-19; Z20.822 Contact with and (suspected) exposure to COVID-19; F43.10 Post-traumatic stress disorder, unspecified; E03.9 Hypothyroidism, unspecified; E66.9 Obesity, unspecified; E78.5 Hyperlipidemia, unspecified; F90.9 Attention-deficit hyperactivity disorder, unspecified type; G25.81 Restless legs syndrome; G47.00 Insomnia, unspecified; G24.01 Drug induced subacute dyskinesia; T42.4X5A Adverse effect of benzodiazepines, initial encounter; I10 Essential (primary) hypertension; K21.9 Gastro-esophageal reflux disease without esophagitis; M79.7 Fibromyalgia; Z63.4 Disappearance and death of family member; Z79.890 Hormone replacement therapy; Z68.39 Body mass index [BMI] 39.0-39.9, adult; Z79.899 Other long term (current) drug therapy; Z79.84 Long term (current) use of oral hypoglycemic drugs; Z87.891 Personal history of nicotine dependence; Z62.810 Personal history of physical and sexual abuse in childhood; Z71.41 Alcohol abuse counseling and surveillance of alcoholic; Z71.51 Drug abuse counseling and surveillance of drug abuser; Z71.89 Other specified counseling; Z71.6 Tobacco abuse counseling; Z88.8 Allergy status to other drugs, medicaments and biological substances; Z81.8 Family history of other mental and behavioral disorders
CPT/HCPCS: 80053; 80061; 80159; 80306; 81003; 81025; 82075; 82248; 83036; 83721; 84439; 84443; 85025; 87635; 99285

== ENCOUNTER → 2023-07-08 | Outpatient (CLI) | payer MEDICARE, OTHER ==
--- NOTE | 2023-07-09 04:02 | US ---
EXAMINATION TYPE: US thyroid st tissue head/neck DATE OF EXAM: 07/08/2023 COMPARISON: Thyroid ultrasound 04/20/2016 CLINICAL INDICATION: Female, 48 years old with history of E03.9 HYPOTHYROIDISM; Abnormal labs. GLAND SIZE: Right Lobe: 2.2 x 0.7 x 0.7 cm, previously measured 4.0 x 1.3 x 1.2 cm Overall Parenchyma: heterogeneous Left Lobe: 1.5 x 0.6 x 0.5 cm, previously measured 4.5 x 1.2 x 0.8 cm Overall Parenchyma: heterogeneous Isthmus Thickness: 0.2 cm, previously measured 0.3 cm thickness NODULES- Bilateral thyroid lobes appear small in size RIGHT: # of nodules measured on right: 0 LEFT: # of nodules measured on left: 0 ISTHMUS: # of nodules measured in the isthmus: 0 Bilateral neck scanned, no evidence of lymphadenopathy. Diminutive appearance of the thyroid gland. IMPRESSION: Increased thyroid atrophy demonstrated without focal nodule.
== END | disposition home or self-care (01) ==
LOC: RADUSWWP 15:23
PROVIDERS: ATTEND Family Medicine
DX: E03.4 Atrophy of thyroid (acquired) (principal)
CPT/HCPCS: 76536

== ENCOUNTER → 2023-08-02 | Outpatient (CLI) | payer MEDICARE, OTHER ==
[2023-08-02 09:32] LABS: Basophils # (A) 0.1 k/uL (0-0.2); Basophils % (A) 1 %; Eosinophils # (A) 0.2 k/uL (0-0.7); Eosinophils % (A) 3 %; HCT 42.2 % (34.0-46.0); HGB 13.5 gm/dL (11.4-16.0); Lymphocytes # (A) 2.4 k/uL (1.0-4.8); Lymphocytes % (A) 35 %; MCH 30.4 pg (25.0-35.0); MCV 94.9 fL (80.0-100.0); Mean Platelet Volume 8.2; Monocytes # (A) 0.4 k/uL (0-1.0); Monocytes % (A) 6 %; Neutrophils # (A) 3.6 k/uL (1.3-7.7); Neutrophils % (A) 53 %; Platelet Count 175 k/uL (150-450); RBC 4.44 m/uL (3.80-5.40); RDW 12.7 % (11.5-15.5); WBC 6.9 k/uL (3.8-10.6)
[2023-08-02 09:43] LABS: African American GFR (CKD) >90 (>60 ml/min/1.73 sqM); Anion Gap 6 mmol/L; Blood Urea Nitrogen 10 mg/dL (7-17); Calcium 10.3 mg/dL (8.4-10.2); Carbon Dioxide 28 mmol/L (22-30); Chloride 104 mmol/L (98-107); Glucose 165 mg/dL (74-99); Non-African American GFR(CKD) 83 (>60 ml/min/1.73 sqM); Potassium 4.3 mmol/L (3.5-5.1); Sodium 138 mmol/L (137-145)
== END | disposition home or self-care (01) ==
LOC: LABPAT 09:04
PROVIDERS: ATTEND Orthopaedic Surgery Hand Surgery
DX: Z01.812 Encounter for preprocedural laboratory examination (principal); M18.11 Unilateral primary osteoarthritis of first carpometacarpal joint, right hand; G56.01 Carpal tunnel syndrome, right upper limb
CPT/HCPCS: 36415; 80048; 85025

== ENCOUNTER 2023-08-03 12:35 | Day surgery (SDC) | payer MEDICARE, OTHER ==
[2023-08-01 13:22] VITALS: BMI 37.2
--- NOTE | 2023-08-02 09:28 | P.HPOR ---
History of Present Illness H&P Date: 08/02/23 Subjective: This is a 48 year old female that presents today for initial evaluation regarding a several year history of progressively worsening bilateral hand and base of the thumb pain with associated numbness and tingling in the fingertips. She states her right side is much worse than her left in regards to the base of the thumb pain. She has tried anti-inflammatories rest and ice with a little relief. She has been to the emergency department due to this pain. She has pain with any type of pinching grasping or trying to open jars. She has tried braces at night time for her numbness and tingling with minimal relief. Physical Examination: LUE: AIN/PIN/Radial/Ulnar/Median motor intact. Radial/Ulnar/Median SILT. 2+/4 Radial/Ulnar pulses palpated. 5/5 APB, 5/5 FDI. Negative Finkelsteins, positive CMC grind, positive Durkan's compression. RUE: AIN/PIN/Radial/Ulnar/Median motor intact. Radial/Ulnar/Median SILT. 2+/4 Radial/Ulnar pulses palpated. 5/5 APB, 5/5 FDI. Negative Finkelsteins, positive CMC grind, positive Durkan's compression. Imaging: X-Rays of the left hand 3V taken in office today demonstrate moderate thumb CMC arthritis. X-Rays of the right hand 3V taken in office today demonstrate severe thumb CMC arthritis Impression: 1.) Bilateral thumb CMC arthritis 2.) Bilateral carpal tunnel syndrome Plan: Diagnosis and treatment options were discussed with the patient. We discussed continued conservative treatment versus operative treatment. She has failed previous attempts at conservative treatment with bracing and anti-inflammatories and wishes to proceed with a right thumb CMC joint arthroplasty as well as a endoscopic verse open carpal tunnel release. Risks and benefits of surgery including bleeding, infection, damage to surrounding tissue, need for further surgery, possible need to convert to open procedure, residual numbness were discussed and the patient wished to go forward with surgery. The patient was a greeable with this plan. -Kg Burr DO Orthopedic Hand/Upper Extremity Surgeon Past Medical History Past Medical History: Diabetes Mellitus, Fibromyalgia, Hypertension, Thyroid Disorder Additional Past Medical History / Comment(s): ADHD, abd pain,constipation with diarrhea, hypokalemia, leukopenia, Type II NIDDM. IBD, Migraine. History of Any Multi-Drug Resistant Organisms: None Reported Past Surgical History: Appendectomy, Section, Cholecystectomy, Orthop edic Surgery, Tubal Ligation Additional Past Surgical History / Comment(s): Orthopedic surgery lt shoulder R/T fx. Partial hysterectomy. Past Anesthesia/Blood Transfusion Reactions: No Reported Reaction Additional Past Anesthesia/Blood Transfusion Reaction / Comment(s): no hx of blood transfusion. Smoking Status: Former smoker, Vaper - Past Family History Mother Family Medical History: Cancer, Pulmonary Embolus Additional Family Medical History / Comment(s): leukemia, lupus Father Family Medical History: Diabetes Mellitus, Hypertension Additional Family Medical History / Comment(s): heart valve problems Brother(s) Additional Family Medical History / Comment(s): She has one brother with no major medical problems. Patient does not have any sisters. Medications and Allergies Home Medications Medication Instructions Recorded Confirmed Type Potassium Chloride ER [K-Dur 10] 10 meq PO QAM 10/03/21 08/02/23 History Pravastatin Sodium [Pravachol] 40 mg PO HS 10/03/21 08/02/23 History hydroCHLOROthiazide 25 mg PO QAM 10/03/21 08/02/23 History rOPINIRole HCL [Requip] 2 mg PO HS 10/03/21 08/02/23 History Doxepin [SINEquan] 20 mg PO HS 30 Days #60 cap 06/04/22 08/02/23 Rx traZODone HCL [Desyrel] 100 mg PO HS 30 Days #30 tab 06/04/22 08/02/23 Rx Ibuprofen(Unknown Dose) 1 dose PO Q8H PRN 08/01/23 08/01/23 History Levothyroxine Sodium [Synthroid] 75 mcg PO QAM 08/01/23 08/02/23 History metFORMIN HCL [Glucophage] 1,000 mg PO BID 08/01/23 08/02/23 History Dextromethorphan HBr/Bupropion 1 dose PO BID 08/02/23 08/02/23 History [Auvelity ER 45-105 mg Tablet] Fenofibrate 134 mg PO HS 08/02/23 08/02/23 History OLANZapine [ZyPREXA] 15 mg PO HS 08/02/23 08/02/23 History Allergies Allergy/AdvReac Type Severity Reaction Status Date / Time lurasidone [From Latuda] AdvReac Swelling Verified 08/01/23 13:07 paroxetine HCl [From Paxil] AdvReac Nausea & Verified 08/01/23 13:07 Vomiting venlafaxine [From Effexor] AdvReac Nausea & Verified 08/01/23 13:07 Vomiting Physical Examination Osteopathic Statement: *. No significant issues noted on an osteopathic structural exam other than those noted in the History and Physical/Consult.
[~2023-08-03 12:35] MED LIST: LIDOCAINE 1% (10MG/ML) FOR IV START INTRADERMA PRN
[2023-08-03] MEDS: LACTATED RINGERS 1,000 ML IV SCH (13:14)
[2023-08-03] MEDS: IV FLUID CONTINUATION 1,000 ML IV ONE (13:14)
[2023-08-03 13:19] LABS: Glucose,Whole Blood 130 mg/dL (70-110)
[2023-08-03] MEDS: DEXAMETHASONE SOD PHOSPHATE 4 MG/ML 1 ML VIAL IVP PRN (13:26)
[2023-08-03] MEDS: ONDANSETRON 4 MG/2 ML VIAL IVP PRN (13:26)
[2023-08-03] MEDS: SCOPOLAMINE 1 MG/72 HR PATCH TRANSDERM STA (13:27)
[2023-08-03] MEDS: FAMOTIDINE 20 MG/2 ML VIAL IVP ONE (14:05)
[2023-08-03] MEDS: fentaNYL (PF) 50 MCG/ML 2 ML AMP IVP ONE (14:05)
[2023-08-03] MEDS: MIDAZOLAM 2 MG/2 ML VIAL IVP ONE (14:05)
[2023-08-03] MEDS ORDERED: SUCCINYLCHOLINE CHLORIDE 200 MG/10 ML VIAL IV ONE (14:33)
[2023-08-03] MEDS ORDERED: ROPIVACAINE 5 MG/ML 30 ML VIAL ONE (14:33)
[2023-08-03] MEDS ORDERED: SODIUM CHLORIDE 0.9% (PF) 10 ML VIAL ONE (14:33)
[2023-08-03] MEDS ORDERED: PROPOFOL 10 MG/ML 20 ML VIAL IV ONE (14:33)
[2023-08-03] MEDS ORDERED: fentaNYL (PF) 50 MCG/ML 2 ML AMP ONE (14:33)
[2023-08-03] MEDS ORDERED: MIDAZOLAM 2 MG/2 ML VIAL ONE (14:33)
[2023-08-03] MEDS: BUPIVACAINE (PF) 0.5% 30 ML VIAL SQ ONE ×2 (14:50→15:33)
--- NOTE | 2023-08-03 15:02 | P.ANPRN ---
Procedure Note - Anesthesia - Nerve Block Performed Right Axillary Single Time Out Performed: Yes ([id number]) Date of Procedure: 08/03/23 Procedure Start Time: 14:06 Procedure Stop Time: 14:12 Location of Patient: PreOp Indication: Acute Post-Operative Pain, Requested by Surgeon Specifically requested for management of pain by DrKathryn: Kg Burr Sedation Type: Sedate with meaningful contact maintained Preparation: Sterile Prep Position: Supine (arm over) Catheter: None Needle Types: Pajunk Needle Gauge: 21 Ultrasound used to visualize needle placement: Yes Ultrasound used to observe medication spread: Yes Injectate: 0.5% Ropivacaine (see comment for volume) (30cc + 10cc nacl pf (10 cc at each of the radial, median, ulnar and musculocutaneous))
--- NOTE | 2023-08-03 15:52 | P.OP ---
Date of Procedure: 08/03/23 Preoperative Diagnosis: 1.) Right thumb CMC arthritis 2.) Right carpal tunnel syndrome Postoperative Diagnosis: 1.) Right thumb CMC arthritis 2.) Right carpal tunnel syndrome Procedure(s) Performed: 1.) Right thumb CMC arthroplasty 2.) Right endoscopic carpal tunnel release Implants: Arthrex 3.5mm Swivel Lock suture anchor x2 Anesthesia: getachew PALOMINO Surgeon: Kg Burr Braille Coder #1: Vikas Izaguirre Estimated Blood Loss (ml): 15 Pathology: none sent Condition: stable Disposition: PACU Description of Procedure: This is a 48 year old female who presents today for a right thumb CMC basal joint arthroplasty after having failed conservative treatment for severe thumb CMC arthritis and right endoscopic carpal tunnel release for carpal tunnel syndrome. Risks and benefits of surgery were discussed with the patient including bleeding, damage to surrounding tissue, infection, need for further surgery as well as risks of anesthesia including pulmonary embolism and even and the patient wished to proceed with surgical intervention. The patients was seen in the pre-operative area by myself. Consent and H&P were completed and updated. The correct extremity was marked in the pre-operative area by myself and all other questions were answered. Patient received a upper extremity nerve block by the department of anesthesia. He then was brought to the operating room by the department of anesthesia. They remained on the portable stretcher and a rolling hand table was brought to the side of the operative extremity. The patient was then drifted off to sleep by the department of anesthesia. A nonsterile tourniquet was then applied to the operative extremity and the right upper extremity was then prepped and draped in normal sterile fashion. Pre-operative time out was performed indicating the correct patient, procedure and laterality. All in the room agreed. Pre-operative antibiotics were given prior to skin incision. The operative extremity was the exsanguinated with an esmarch bandage and the tourniquet was inflated to 250mmHg. 15 blade scalpel was utilized to make a transverse incision on the palmar skin just ulnar to the palmaris longus tendon at the level of the distal wrist crease. Ragnell retractor was then placed radially and blunt dissection was performed to reveal the distal forearm fascia. This was lifted with fine Elliot pick ups and Littler tenotomy scissors were then used to open the forearm fascia transversely and a double skin hook was then placed. Hamate finder was placed into the carpal tunnel and then sequential sized dilators were inserted followed by the synovial elevator to separate the flexor tenosynovium from the undersurface of the transverse carpal ligament and a washboard texture was felt. The MicroAire endoscopic carpal tunnel release system gun was the then inserted into the carpal tunnel hugging the deep portion of the transverse carpal ligament in line with the base of the ring finger. Transverse fibers of the ligament were directly visualized. Pressure was applied on the palm to reveal the distal extent of the transverse carpal ligament. The blade was then deployed and the distal half of the transverse carpal ligament was released. The scope was then brought distal again and remaining transverse fibers were incised with the blade. The proximal half of the transverse carpal ligament was then divided and again the scope was advanced distal and remaining transverse fibers were incised with the blade. The radial and ulnar leaflets were directly visualized and mobile consistent with complete release. Tenotomy scissors were then utilized to release the remaining distal forearm fascia under direct visualization taking care to preserve the palmar cutaneous branch of the median nerve. Skin closure was performed with interrupted 4-0 Monocryl suture followed by steri strips. Longitudinal incision was made over the left thumb CMC joint with a 15 blade scalpel. Blunt dissection was taken down to subcutaneous tissues with littler scissors taking care to preserve the branches of the superficial radial nerve. Dorsal radial artery was identified proximally in the incision and protected throughout the procedure. Scalpel was then made to incise the thumb CMC joint creating full thickness flaps off of the proximal metacarpal base and trapezium, this plane was further developed with a periosteal elevator. Elevator was then utilized to identify the thumb CMC joint and scaphotrapezial joint. McGlamory elevator was then used to excise the trapezium whole. Guidewire was then introduced down to the laser line at the base of the first metacarpal through the same incision and was over drilled. Another guidewire was then inserted at the radial base of the first metacarpal near the Insertion of APL and was then over drilled with normal drill guide. A 3.5mm Arthrex SwiveLock anchor was then inserted into the base of the first metacarpal. While holding the thumb in slight traction and full adduction, another 3.5mm Arthrex SwiveLock anchor was inserted into the base of the second metacarpal and the two strands of fibertape were centered across the first metacarpal base to create a sling around the base suspending the thumb metacarpal, good angela purchase was appreciated. The thumb was successfully suspended and full ROM was achieved passively. Suture ends were cut and skin was closed with several interrupted 4-0 Monocryl sutures followed by a running 4-0 Monocryl stitch. Sterile dressing consisting of steri strips followed by 4x4s cast padding, and a thumb spica plaster splint was applied. Tourniquet was let down and the hand had brisk cap refill and normal perfusion immediately. The patient was then woken by the department of anesthesia and transferred to PACU in stable condition. Vikas DUQUE was present to assist in hardware placement and bone removal. Kg Burr D.O. Orthopedic Hand/Upper Extremity Surgeon
[2023-08-03 16:07] VITALS: TEMP 98.8
[2023-08-03 16:18] VITALS: PULSE 100
[2023-08-03] MEDS: LACTATED RINGERS 1,000 ML IV ONE (16:30)
[2023-08-03 16:48] VITALS: BP 133/81; RESP 14
== END 2023-08-03 17:12 | disposition home or self-care (01) ==
LOC: OR 12:35
PROVIDERS: ATTEND Orthopaedic Surgery Hand Surgery
DX: M18.11 Unilateral primary osteoarthritis of first carpometacarpal joint, right hand (principal); G56.01 Carpal tunnel syndrome, right upper limb; E11.9 Type 2 diabetes mellitus without complications; G89.18 Other acute postprocedural pain; E07.9 Disorder of thyroid, unspecified; I10 Essential (primary) hypertension; K58.9 Irritable bowel syndrome, unspecified; M79.7 Fibromyalgia; Z79.84 Long term (current) use of oral hypoglycemic drugs; Z87.891 Personal history of nicotine dependence; Z90.49 Acquired absence of other specified parts of digestive tract; Z98.51 Tubal ligation status; Z79.890 Hormone replacement therapy; Z79.899 Other long term (current) drug therapy
CPT/HCPCS: 64415; 25447; 29848; C1713; J2250; J0330; J1100; J0690; J2405; J3010; J3490; J2795; J2704; J0665

== ENCOUNTER 2024-05-25 22:45 | Emergency (ER) | payer MEDICARE, OTHER ==
[2024-05-25 23:33] LABS: Basophils # (A) 0.1 k/uL (0-0.2); Basophils % (A) 1 %; Eosinophils # (A) 0.2 k/uL (0-0.7); Eosinophils % (A) 3 %; HCT 40.8 % (34.0-46.0); Lymphocytes # (A) 3.3 k/uL (1.0-4.8); Lymphocytes % (A) 41 %; MCH 28.2 pg (25.0-35.0); MCHC 31.8 g/dL (31.0-37.0); MCV 88.7 fL (80.0-100.0); Monocytes # (A) 0.4 k/uL (0-1.0); Monocytes % (A) 4 %; Neutrophils % (A) 50 %; Platelet Count 194 k/uL (150-450)
--- NOTE | 2024-05-25 23:36 | ED ---
General Adult HPI - General Chief complaint: Extremity Problem,Nontraumatic Stated complaint: Leg Pain Time Seen by Provider: 05/25/24 23:06 Source: patient, EMS, RN notes reviewed, old records reviewed Mode of arrival: EMS Limitations: no limitations - History of Present Illness Initial comments: 49-year-old female presenting for evaluation of bilateral leg pain and muscle cramps. Symptoms have been present throughout the day today. No injury or ov eruse. Patient denies upper respiratory symptoms. Pain is equal in both legs. No chest pain or dyspnea. - Related Data Home Medications Medication Instructions Recorded Confirmed Potassium Chloride ER [K-Dur 10] 10 meq PO QAM 10/03/21 08/02/23 Pravastatin Sodium [Pravachol] 40 mg PO HS 10/03/21 08/02/23 hydroCHLOROthiazide 25 mg PO QAM 10/03/21 08/02/23 rOPINIRole HCL [Requip] 2 mg PO HS 10/03/21 08/02/23 Ibuprofen(Unknown Dose) 1 dose PO Q8H PRN 08/01/23 08/01/23 Levothyroxine Sodium [Synthroid] 75 mcg PO QAM 08/01/23 08/02/23 metFORMIN HCL [Glucophage] 1,000 mg PO BID 08/01/23 08/02/23 Dextromethorphan HBr/Bupropion 1 dose PO BID 08/02/23 08/02/23 [Auvelity ER 45-105 mg Tablet] Fenofibrate 134 mg PO HS 08/02/23 08/02/23 OLANZapine [ZyPREXA] 15 mg PO HS 08/02/23 08/02/23 Previous Rx's Medication Instructions Recorded Doxepin [SINEquan] 20 mg PO HS 30 Days #60 cap 06/04/22 traZODone HCL [Desyrel] 100 mg PO HS 30 Days #30 tab 06/04/22 HYDROcodone/APAP 5-325MG [[place] 1 tab PO Q6HR PRN 3 Days #24 tab 08/03/23 5-325] Allergies Allergy/AdvReac Type Severity Reaction Status Date / Time lurasidone [From Latuda] AdvReac Swelling Verified 05/25/24 22:50 paroxetine HCl [From Paxil] AdvReac Nausea & Verified 05/25/24 22:50 Vomiting venlafaxine [From Effexor] AdvReac Nausea & Verified 05/25/24 22:50 Vomiting Review of Systems ROS Statement: Those systems with pertinent positive or pertinent negative responses have been documented in the HPI. ROS Other: All systems not noted in ROS Statement are negative. Past Medical History Past Medical History: Diabetes Mellitus, Fibromyalgia, Hypertension, Thyroid Disorder Additional Past Medical History / Comment(s): ADHD, abd pain,constipation with diarrhea, hypokalemia, leukopenia, Type II NIDDM. History of Any Multi-Drug Resistant Organisms: None Reported Past Surgical History: Appendectomy, Section, Cholecystectomy, Orthopedic Surgery, Tubal Ligation Additional Past Surgical History / Comment(s): Orthopedic surgery lt shoulder R/T fx. Partial hysterectomy. Past Anesthesia/Blood Transfusion Reactions: No Reported Reaction Additional Past Anesthesia/Blood Transfusion Reaction / Comment(s): no hx of blood transfusion. Past Psychological History: ADD/ADHD, Depression Smoking Status: Former smoker, Vaper Past Alcohol Use History: None Reported Past Drug Use History: Marijuana - Past Family History Mother Family Medical History: Cancer, Pulmonary Embolus Additional Family Medical History / Comment(s): leukemia, lupus Father Family Medical History: Diabetes Mellitus, Hypertension Additional Family Medical History / Comment(s): heart valve problems Brother(s) Additional Family Medical History / Comment(s): She has one brother with no ma celia medical problems. Patient does not have any sisters. General Exam General appearance: alert, in no apparent distress Head exam: Present: atraumatic, normocephalic Eye exam: Present: normal appearance, PERRL ENT exam: Present: mucous membranes dry Neck exam: Present: normal inspection. Absent: tenderness, meningismus Respiratory exam: Present: normal lung sounds bilaterally. Absent: respiratory distress, wheezes Cardiovascular Exam: Present: regular rate, normal rhythm GI/Abdominal exam: Present: soft. Absent: distended, tenderness Extremities exam: Present: normal inspection, full ROM, normal capillary refill. Absent: pedal edema, joint swelling, calf tenderness Neurological exam: Present: alert, oriented X3 Psychiatric exam: Present: normal affect, normal mood Skin exam: Present: warm, dry, intact Course Vital Signs 05/25/24 22:49 Temperature 97.9 F Pulse Rate 83 Respiratory 18 Rate Blood Pressure 110/75 O2 Sat by Pulse 97 Oximetry Medical Decision Making - Medical Decision Making Was pt. sent in by a medical professional or institution (NETO Freeman, FINANCIAL SALES CONSULTANT, urgent care, hospital, or [facility]...) When possible be specific @ -No Did you speak to anyone other than the patient for history (EMS, parent, family, police, friend...)? What history was obtained from this source @ -No Did you review nursing and triage notes (agree or disagree)? Why? @ -I reviewed and agree with nursing and triage notes Were old charts reviewed (outside hosp., previous admission, EMS record, old EKG, old radiological studies, urgent care reports/EKG's, [facility] records)? Report findings @ -No old charts were reviewed Differential Diagnosis rhabdomyolysis, electrolyte abnormality, overuse, muscle cramp EKG interpreted by me (3pts min.). @ -[Sinus rhythm rate of 91, ID interval 140, QRS duration 90, QTc 413 X-rays interpreted by me (1pt min.). @ -None done CT interpreted by me (1pt min.). @ -None done U/S interpreted by me (1pt. min.). @ -None done What testing was considered but not performed or refused? (CT, X-rays, U/S, labs)? Why? @ -None What meds were considered but not given or refused? Why? @ -None Did you discuss the management of the patient with other professionals (professionals i.e. NETO Freeman, FINANCIAL SALES CONSULTANT, lab, RT, psych nurse, social services analyst, lawyer criminal, teacher, family preservation officer, counseling case manager)? Give summary @ -No Was smoking cessation discussed for >3mins.? @ -No Was critical care preformed (if so, how long)? @ -No Were there social determinants of health that impacted care today? How? (Homelessness, low income, unemployed, alcoholism, drug addiction, transportation, low edu. Level, literacy, decrease access to med. care, group home, rehab)? @ -No Was there de-escalation of care discussed even if they declined (Discuss DNR or withdrawal of care, Hospice)? DNR status @ -No What co-morbidities impacted this encounter? (DM, HTN, Smoking, COPD, CAD, Cancer, CVA, ARF, Chemo, Hep., AIDS, mental health diagnosis, sleep apnea, mo rbid obesity)? @ -None Was patient admitted / discharged? Hospital course, mention meds given and r oute, prescriptions, significant lab abnormalities, going to OR and other pertinent info. @ -[49-year-old female with bilateral lower extremity muscle cramps. Legs are well-perfused, normal pulse exam, no swelling, normal range of motion. No reported injury. I did obtain laboratory test including CBC, CMP, magnesium and creatinine kinase. Patient has some mildly elevated calcium at 11.3 which will require surveillance. Her blood sugars also elevated and she does appear dehydrated on exam. She is given IV fluids and pain medication. On reevaluation symptoms significantly improved. Patient will drink plenty of fluids follow-up with her primary care provider regarding repeat laboratory testing. Undiagnosed new problem with uncertain prognosis? @ -No Drug Therapy requiring intensive monitoring for toxicity (Heparin, Nitro, Insulin, Cardizem)? @ -No Were any procedures done? @ -No Diagnosis/symptom? @ -[Muscle cramps Acute, or Chronic, or Acute on Chronic? @ -Acute Uncomplicated (without systemic symptoms) or Complicated (systemic symptoms)? @ -[default Side effects of treatment? @ -No Exacerbation, Progression, or Severe Exacerbation? @ -No Poses a threat to life or bodily function? How? (Chest pain, [place], [place], pneumonia, PE, COPD, DKA, ARF, appy, cholecystitis, CVA, Diverticulitis, Homicidal, Suicidal, threat to staff... and all critical care pts) @ -No - Lab Data Result diagrams: 05/25/24 23:26 05/25/24 23:26 Lab Results 05/25/24 05/25/24 05/26/24 Range/Units 23:26 23:26 00:30 WBC 8.0 (3.8-10.6) k/uL RBC 4.60 (3.80-5.40) m/uL Hgb 13.0 (11.4-16.0) gm/dL Hct 40.8 (34.0-46.0) % MCV 88.7 (80.0-100.0) fL MCH 28.2 (25.0-35.0) pg MCHC 31.8 (31.0-37.0) g/dL RDW 13.0 (11.5-15.5) % Plt Count 194 (150-450) k/uL MPV 8.0 Neutrophils % 50 % Lymphocytes % 41 % Monocytes % 4 % Eosinophils % 3 % Basophils % 1 % Neutrophils # 4.0 (1.3-7.7) k/uL Lymphocytes # 3.3 (1.0-4.8) k/uL Monocytes # 0.4 (0-1.0) k/uL Eosinophils # 0.2 (0-0.7) k/uL Basophils # 0.1 (0-0.2) k/uL Sodium 139 (137-145) mmol/L Potassium 3.8 (3.5-5.1) mmol/L Chloride 101 (98-107) mmol/L Carbon Dioxide 25 (22-30) mmol/L Anion Gap 13 mmol/L BUN 16 (7-17) mg/dL Creatinine 0.99 (0.52-1.04) mg/dL Est GFR (CKD-EPI)AfAm 78 (>60 ml/min/1.73 sqM) Est GFR (CKD-EPI)NonAf 68 (>60 ml/min/1.73 sqM) Glucose 197 H (74-99) mg/dL Calcium 11.3 H (8.4-10.2) mg/dL Magnesium 1.7 (1.6-2.3) mg/dL Total Bilirubin 0.6 (0.2-1.3) mg/dL AST 45 H (14-36) U/L ALT 67 H (4-34) U/L Alkaline Phosphatase 58 (38-126) U/L Creatine Kinase 171 H (30-135) U/L Total Protein 7.9 (6.3-8.2) g/dL Albumin 4.6 (3.5-5.0) g/dL Urine Color Colorless Urine Appearance Clear (Clear) Urine pH 6.0 (5.0-8.0) Ur Specific Geraldine 1.016 (1.001-1.035) Urine Protein Negative (Negative) Urine Glucose (UA) 4+ H (Negative) Urine Ketones Negative (Negative) Urine Blood Negative (Negative) Urine Nitrite Negative (Negative) Urine Bilirubin Negative (Negative) Urine Urobilinogen <2.0 (<2.0) mg/dL Ur Leukocyte Esterase Negative (Negative) Urine Opiates Screen Not Detected (NotDetected) Ur Oxycodone Screen Not Detected (NotDetected) Urine Methadone Screen Not Detected (NotDetected) Ur Barbiturates Screen Not Detected (NotDetected) U Tricyclic Antidepress Detected H (NotDetected) Ur Phencyclidine Scrn Not Detected (NotDetected) Ur Amphetamines Screen Not Detected (NotDetected) U Methamphetamines Scrn Not Detected (NotDetected) U Benzodiazepines Scrn Not Detected (NotDetected) Urine Cocaine Screen Not Detected (NotDetected) U Marijuana (THC) Screen Detected H (NotDetected) Disposition Clinical Impression: Cramps, muscle, general Disposition: HOME SELF-CARE Condition: Fair Instructions (If sedation given, give patient instructions): Leg Cramps (ED) Additional Instructions: Have your electrolytes including your calcium redrawn by primary care. Please drink plenty of fluids. Is patient prescribed a controlled substance at d/c from ED?: No Referrals: Zaida Ly NPC [Family Provider] - 1-2 days Time of Disposition: 01:15
[2024-05-25 23:54] LABS: ALT 67 U/L (4-34); AST 45 U/L (14-36); African American GFR (CKD) 78 (>60 ml/min/1.73 sqM); Albumin 4.6 g/dL (3.5-5.0); Alkaline Phosphatase 58 U/L (38-126); Anion Gap 13 mmol/L; Blood Urea Nitrogen 16 mg/dL (7-17); Calcium 11.3 mg/dL (8.4-10.2); Carbon Dioxide 25 mmol/L (22-30); Chloride 101 mmol/L (98-107); Creatine Kinase 171 U/L (30-135); Glucose 197 mg/dL (74-99); Magnesium 1.7 mg/dL (1.6-2.3); Non-African American GFR(CKD) 68 (>60 ml/min/1.73 sqM); Potassium 3.8 mmol/L (3.5-5.1); Sodium 139 mmol/L (137-145); Total Bilirubin 0.6 mg/dL (0.2-1.3); Total Protein 7.9 g/dL (6.3-8.2)
[2024-05-26] MEDS: SODIUM CHLORIDE 0.9% 1,000 ML IV ONE (00:27)
[2024-05-26] MEDS: KETOROLAC 15 MG/ML 1 ML VIAL IVP STA (00:27)
[2024-05-26 00:51] LABS: Appearance,Urine Clear (Clear); Bilirubin,Urine Negative (Negative); Blood,Urine Negative (Negative); Color,Urine Colorless; Glucose,Urine (UA) 4+ (Negative); Ketones,Urine Negative (Negative); Leukocyte Esterase,Urine Negative (Negative); Nitrite,Urine Negative (Negative); Protein,Urine Negative (Negative); Specific Gravity,Urine 1.016 (1.001-1.035); Urobilinogen,Urine <2.0 mg/dL (<2.0)
[2024-05-26 01:09] LABS: Amphetamine Screen,Urine Not Detected (NotDetected); Barbiturate Screen,Urine Not Detected (NotDetected); Benzodiazepines Screen,Urine Not Detected (NotDetected); Cocaine Screen,Urine Not Detected (NotDetected); Methadone Screen, Urine Not Detected (NotDetected); Opiate Screen,Urine Not Detected (NotDetected); Oxycodone Screen, Urine Not Detected (NotDetected); Phencyclidine Screen,Urine Not Detected (NotDetected); Tricyclic Antidepressant,Urine Detected (NotDetected); Urn Cannabinoid Scrn Detected (NotDetected)
[2024-05-26] MEDS: HYDROmorphone 0.5 MG/0.5 ML SYRINGE IVP STA (01:35)
[2024-05-26] MEDS: ACETAMINOPHEN TAB 500 MG TAB PO STA (01:35)
[2024-05-26 01:45] VITALS: BP 112/82; PULSE 67; RESP 16; TEMP 98.7
== END 2024-05-26 01:45 | disposition home or self-care (01) ==
LOC: EC 22:45
DX: R25.2 Cramp and spasm (principal); F17.290 Nicotine dependence, other tobacco product, uncomplicated; Z88.8 Allergy status to other drugs, medicaments and biological substances
CPT/HCPCS: 36415; 93005; 80053; 82550; 83735; 85025; 81003; 80306; 99284; 96374; 96375 ×2; 96361; J3360; J1885; J1171

== ENCOUNTER → 2024-06-22 | Outpatient (CLI) | payer MEDICARE, OTHER ==
--- NOTE | 2024-06-22 15:05 | US ---
EXAMINATION TYPE: US venous doppler duplex LE BI DATE OF EXAM: 06/22/2024 2:29 PM COMPARISON: NONE CLINICAL INDICATION: Female, 49 years old with history of M79.604 PAIN R LEG M79.605 PAIN L LEG; BLE pain x few years. Family history of DVT, no other signs, symptoms, or relevant history. TECHNIQUE: The lower extremity deep venous system is examined utilizing real time linear array sonog clair with graded compression, color doppler sonography, and spectral doppler. SIDE PERFORMED: FINDINGS: VESSELS IMAGED: Common Femoral Vein Deep Femoral Vein Greater Saphenous Vein * Femoral Vein Popliteal Vein Small Saphenous Vein * Proximal Calf Veins (* superficial vessels) Right Leg: Color Doppler imaging shows patency of the vessels. Spectral waveforms are within normal l imits. Left Leg: Color Doppler imaging shows patency of the vessels. Spectral waveforms are within normal li mits. IMPRESSION: No evidence for DVT within the bilateral lower extremities imaged from the groin to the upper calves. [facility], , 06/22/2024 3:02 PM
== END | disposition home or self-care (01) ==
LOC: RADUSWWP 14:12
PROVIDERS: ATTEND Family Medicine
DX: M79.604 Pain in right leg (principal); M79.605 Pain in left leg
CPT/HCPCS: 93970

== ENCOUNTER → 2024-07-07 | Outpatient (CLI) | payer MEDICARE, OTHER ==
[2024-07-07 13:09] LABS: HCT 39.5 % (37.2-46.3); HGB 12.3 g/dL (12.0-15.0); MCH 28.3 pg (27.0-32.0); MCHC 31.1 g/dL (32.0-37.0); MCV 90.8 FL (80.0-97.0); Mean Platelet Volume 11.2 FL (9.5-12.2); NRBC Per 100 WBC 0 X 10*3/uL (0.00-0.01); Platelet Count 216 X 10*3/uL (140-440); RBC 4.35 X 10*6/uL (4.10-5.20); RDW 13.2 % (11.5-14.5)
[2024-07-07 13:18] LABS: Microalbumin Creatinine Ratio <18 mg/g Cr (0-30); Urine Creatinine 68.5 mg/dL (28.0-217.0)
[2024-07-07 13:38] LABS: % Iron Saturation 14.57 (12.00-45.00); Chol/HDL Ratio 6.28 Ratio; Iron 59 UG/DL (50-170); Total Iron Binding Capacity 405 UG/DL (228-460)
[2024-07-07 13:39] LABS: ALT 54 U/L (8-44); AST 42 U/L (13-35); Albumin 4.1 g/dL (3.8-4.9); Albumin/Globulin Ratio 1.41 Ratio (1.60-3.17); Alkaline Phosphatase 53 U/L (41-126); BUN/Creat Ratio 12.75 Ratio (12.00-20.00); Blood Urea Nitrogen 10.2 mg/dL (9.0-27.0); Calcium 9.3 mg/dL (8.7-10.3); Carbon Dioxide 20.7 mmol/L (21.6-31.8); Chloride 105 mmol/L (96-109); Ferritin 94.9 ng/mL (10.0-291.0); Globulin 2.9 g/dL (1.6-3.3); Glucose 132 mg/dL (70-110); Potassium 4.3 mmol/L (3.5-5.5); Sodium 139 mmol/L (135-145); T4, Free (Free Thyroxine) 1.64 ng/dL (0.80-1.80); Total Bilirubin 0.3 mg/dL (0.3-1.2)
[2024-07-07 13:53] LABS: Basophils # (A) 0.07 X 10*3/uL (0.00-0.10); Eosinophils # (A) 0.18 X 10*3/uL (0.04-0.35); Eosinophils % (A) 2.5 %; Lymphocytes # (A) 2.54 X 10*3/uL (0.90-5.00); Lymphocytes % (A) 35.3 %; Monocytes # (A) 0.45 X 10*3/uL (0.20-1.00); Monocytes % (A) 6.3 %; Neutrophils # (A) 3.94 X 10*3/uL (1.80-7.70); Neutrophils % (A) 54.6 %
[2024-07-07 14:31] LABS: Appearance,Urine Clear (Clear); Bilirubin,Urine Negative (Negative); Blood,Urine Negative (Negative); Color,Urine Yellow (Yellow); Ketones,Urine Negative (Negative); Nitrite,Urine Negative (Negative); PH, Urine 6.5; Specific Gravity,Urine 1.031 (1.001-1.030); Urobilinogen,Urine 0.2
== END | disposition home or self-care (01) ==
LOC: LABWHC1 08:11
PROVIDERS: ATTEND Internal Medicine
DX: E11.9 Type 2 diabetes mellitus without complications (principal); E03.9 Hypothyroidism, unspecified; Z79.899 Other long term (current) drug therapy
CPT/HCPCS: 36415; 80053; 80061; 81003; 82043; 82306; 82570; 82728; 83036; 83540; 83550; 83721; 84439; 84443; 85025